=== PATIENT | female | born 1965 | race Caucasian/White ===

== ENCOUNTER 2020-08-15 13:00 | Outpatient (REF) | payer OTHER, SELFPAY ==
[2020-08-15 15:14] LABS: Alanine Aminotransferase 28 U/L (0-31); Albumin Level 4.3 g/dL (3.5-5.0); Alkaline Phosphatase 114 U/L (39-117); Anion Gap 15 (12-20); Aspartate Amino Transferase 17 U/L (5-31); Bilirubin Total 0.4 mg/dL (0.0-1.0); Blood Urea Nitrogen 23 mg/dL (9-16); Carbon Dioxide 25 mmol/L (22-29); Chloride 104 mmol/L (96-108); Cholesterol 227 mg/dL; Estimated Glomerular Filt Rate 52; Glucose Fasting 99 mg/dL (60-99); HDL Cholesterol 49 mg/dL; LDL Cholesterol Calculated 144 mg/dl; Potassium 4.5 mmol/l (3.3-5.1); Sodium 139 mmol/L (135-145); Triglycerides 172 mg/dL
[2020-08-15 15:35] LABS: Thyroid Stimulating Hormone 1.01 mIU/mL (0.32-4.0)
[2020-08-19 08:42] LABS: Vitamin D 25-OH, D2 4 ng/mL; Vitamin D 25-OH, D3 32 ng/mL; Vitamin D 25-OH, Total 36 ng/mL (30-100)
== END 2020-08-15 13:01 | disposition home or self-care (01) ==
LOC: HO.HMGCLDS 13:00
PROVIDERS: PCP Internal Medicine; Visit Provider Internal Medicine
DX: I10 Essential (primary) hypertension (principal); E55.9 Vitamin D deficiency, unspecified; E78.5 Hyperlipidemia, unspecified
CPT/HCPCS: 80053; 80061; 82306; 84443

== ENCOUNTER 2021-03-19 09:54 | Outpatient (REF) | payer OTHER, SELFPAY ==
[2021-03-19 11:32] LABS: Hematocrit 41.6 % (37-47); Hemoglobin 13.6 g/dl (12.0-16.0); Mean Corpuscular HGB Conc 32.7 g/dl (31.0-35.0); Mean Corpuscular Hemoglobin 30.2 pg (27.0-33.0); Mean Corpuscular Volume 92.2 fL (80-98); Mean Platelet Volume 11.3 fL (9.4-12.3); Platelet Count 353 X10*3/uL (160-400); Red Blood Count 4.51 X10*6/uL (4.20-5.50); Red Cell Distribution Width 12.8 % (11.0-16.0); White Blood Count 8.7 X10*3/uL (4.8-10.8)
[2021-03-19 12:03] LABS: Alanine Aminotransferase 14 U/L (0-31); Albumin Level 4.3 g/dL (3.5-5.0); Alkaline Phosphatase 93 U/L (39-117); Anion Gap 15 (12-20); Aspartate Amino Transferase 12 U/L (5-31); Bilirubin Total 0.5 mg/dL (0.0-1.0); Blood Urea Nitrogen 26 mg/dL (9-16); Calcium 9.2 mg/dL (8.4-10.2); Carbon Dioxide 24 mmol/L (22-29); Chloride 104 mmol/L (96-108); Cholesterol 236 mg/dL; Estimated Glomerular Filt Rate 50; Glucose Fasting 113 mg/dL (60-99); HDL Cholesterol 49 mg/dL; LDL Cholesterol Calculated 132 mg/dl; Potassium 4.2 mmol/L (3.3-5.1); Sodium 139 mmol/L (135-145); Total Protein 7.1 g/dL (6.5-8.0); Triglycerides 276 mg/dL
[2021-03-19 13:06] LABS: Folate 6.2 ng/mL (> or = 4.0); Vitamin B12 210 pg/mL (200-900)
[2021-03-20 11:27] LABS: Glucose Urine UA NEG (NEG); Leukocyte Esterase Urine NEG (NEG); Nitrite Urine NEG (NEG); Specific Gravity - Urine <= 1.005 (1.005-1.025); Urine Blood NEG (NEG); Urine Ketones NEG (NEG); Urine Protein NEG (NEG-TRACE)
[2021-03-20 11:28] LABS: Appearance Urine CLEAR; Color Urine STRAW
== END 2021-03-19 09:55 | disposition home or self-care (01) ==
LOC: HO.HMGCLDS 09:54
PROVIDERS: PCP Internal Medicine; Visit Provider Internal Medicine
DX: M79.7 Fibromyalgia (principal); M51.36 Other intervertebral disc degeneration, lumbar region; E55.9 Vitamin D deficiency, unspecified; I10 Essential (primary) hypertension; M17.11 Unilateral primary osteoarthritis, right knee; E53.8 Deficiency of other specified B group vitamins; R10.9 Unspecified abdominal pain; M54.12 Radiculopathy, cervical region
CPT/HCPCS: 36415; 80053; 80061; 81003; 82607; 82746; 84443; 85027

== ENCOUNTER 2021-03-20 | Outpatient (REF) | payer OTHER, SELFPAY | END 2021-03-20 00:01 | disposition home or self-care (01) | LOC: HO.HMGCLNP | PROVIDERS: Visit Provider Internal Medicine | DX: Z13.89 Encounter for screening for other disorder (principal) ==

== ENCOUNTER → 2021-03-27 10:49 | Outpatient (BNVA) | payer OTHER, MEDICARE, MEDICAID, SELFPAY | PROVIDERS: PCP Internal Medicine; Visit Provider Nurse Practitioner Family | DX: M51.36 Other intervertebral disc degeneration, lumbar region (principal); M54.12 Radiculopathy, cervical region; M96.1 Postlaminectomy syndrome, not elsewhere classified | CPT/HCPCS: 99212 ==

== ENCOUNTER 2021-04-06 13:13 | Outpatient (REF) | payer OTHER, SELFPAY ==
--- NOTE | ~2021-04-06 | CT_ITS ---
EXAMINATION: CT ABDOMEN AND PELVIS WITH CONTRAST CLINICAL INFORMATION: Diverticulitis of intestine COMPARISON: CT abdomen pelvis 05/22/2010 TECHNIQUE: Multidetector volumetric images were obtained from the superior aspect of the liver through the pubic symphysis following administration 85 mL of Omnipaque 350 intravenous contrast. Sagittal and coronal reformatted images were obtained on the technologist's workstation. Oral contrast: No This CT examination was performed using dose optimization techniques as appropriate, variously including the following: *Automated exposure control *Adjustment of mA and/or kV according to patient size (this includes techniques or standardized protocols for targeted exams where dose is matched to indication/reason for exam; i.e. extremities or head) *Use of iterative reconstruction technique DLP: 649 mGy-cm FINDINGS: LUNG BASES: The visualized lung bases are unremarkable. LIVER, GALLBLADDER, AND BILIARY TREE: The liver is normal in size, shape, and attenuation. No focal hepatic lesion or biliary ductal dilatation is present. Status post cholecystectomy PANCREAS: Unremarkable. SPLEEN: Unremarkable. ADRENAL GLANDS: Unremarkable. KIDNEYS AND URETERS: The kidneys are normal in size, shape, and attenuation. No hydronephrosis, hydroureter, or calculi seen. No perinephric stranding. BLADDER: Unremarkable. GASTROINTESTINAL TRACT: The small and large bowel are unremarkable. No significant diverticulosis is present. The appendix is unremarkable and tucked into Morison's pouch. ABDOMINAL WALL: No significant hernia is appreciated. LYMPH NODES: No retroperitoneal lymphadenopathy. VASCULAR: Unremarkable. PELVIC VISCERA: An anteverted uterus is present with a possible subserosal fibroid measuring 2.5 cm on the posterior surface. An abnormal adnexal mass is not seen. No free intraperitoneal fluid is present. OSSEOUS STRUCTURES: Degenerative changes present throughout the lumbar spine. Large Schmorl's nodes are seen. CT/CT abdomen pelvis w con IMPRESSION: No significant abnormality. Patient status post cholecystectomy. A possible small uterine fibroid is present. In retrospect, this is probably present in 2009 but appears slightly more prominent on the current study.
[2021-04-06] MEDS: iohexoL 350 MG/ML 100 ML INFUS..BTL IV (16:46)
== END 2021-04-06 13:14 | disposition home or self-care (01) ==
LOC: HO.CT 13:13
PROVIDERS: PCP Internal Medicine; Visit Provider Internal Medicine
DX: K57.92 Diverticulitis of intestine, part unspecified, without perforation or abscess without bleeding (principal)
CPT/HCPCS: 74177; Q9967

== ENCOUNTER 2021-04-11 15:42 | Outpatient (REF) | payer OTHER, SELFPAY ==
[2021-04-11 18:10] LABS: C Reactive Protein 1.29 mg/dL (< or = 0.50)
[2021-04-12 15:27] LABS: Transglutaminase Ab IgG 2 U/mL; Transglutaminase IgA 1 U/mL
== END 2021-04-11 15:43 | disposition home or self-care (01) ==
LOC: HO.LAB 15:42
PROVIDERS: PCP Internal Medicine; Referring Provider Internal Medicine; Visit Provider Nurse Practitioner Family
DX: Z01.818 Encounter for other preprocedural examination (principal); R10.9 Unspecified abdominal pain; R19.7 Diarrhea, unspecified; K92.2 Gastrointestinal hemorrhage, unspecified
CPT/HCPCS: 36415; 83516; 86140; 99202

== ENCOUNTER 2021-04-26 13:51 | Outpatient (REF) | payer OTHER, SELFPAY | END 2021-04-26 13:52 | disposition home or self-care (01) | LOC: HO.MRI 13:51 | PROVIDERS: PCP Internal Medicine; Visit Provider Anesthesiology | DX: R30.0 Dysuria (principal) | CPT/HCPCS: 87086 ==

== ENCOUNTER 2021-05-03 13:59 | Outpatient (REF) | payer OTHER, SELFPAY ==
--- NOTE | ~2021-05-03 | MR_ITS ---
EXAMINATION: MR CERVICAL SPINE WITHOUT CONTRAST CLINICAL INFORMATION: Neck pain. No new trauma. Prior surgery. COMPARISON: MRI dated 07/19/2019. TECHNIQUE: MRI of the cervical spine was obtained using routine sequences without contrast. FINDINGS: VERTEBRAL BODIES AND PARASPINAL SOFT TISSUES: The patient is status post previous multilevel anterior cervical discectomies and fusion from the C4 through the C7 levels. Alignment is unchanged. The marrow signal is homogeneous. There are no compression fractures or new subluxations. The paraspinal soft tissues appear normal. The vertebral artery flow voids are maintained. The imaged lung apices are clear. CERVICOMEDULLARY JUNCTION AND VISUALIZED POSTERIOR FOSSA: The craniovertebral junction and imaged portions of the brain parenchyma appear normal. There is multilevel ossification of the posterior longitudinal ligament impressing upon the ventral cord and thecal sac. Cord myelomalacia and volume loss again visible at the C4 through the C6 level. No syrinx is seen. SPINAL LEVELS: C2-C3: Stable disc bulge and small central disc protrusion with endplate spurring. No central canal stenosis. Degree of foraminal encroachment is stable from bony spurring. C3-C4: Stable disc-osteophyte complex with a small central disc protrusion impressing upon the ventral cord. No significant central canal stenosis. Stable [id number] foraminal narrowing. C4-C5: Endplate spurring and ossification of the posterior longitudinal ligament flattening the ventral cord, as on prior imaging. Post fusion changes anteriorly. No central canal stenosis or foraminal narrowing. Mild cord myelomalacia again evident. C5-C6: Post fusion changes with significant myelomalacia and cord atrophy. Ossification of the posterior longitudinal ligament distorting the ventral cord and thecal sac. No central canal stenosis. Mild foraminal narrowing. C6-C7: Bulky ossification and endplate ridging distorting the ventral cord, as on prior imaging. ACDF changes. Patent foramina. C7-T1: Broad-based central disc extrusion again visible with flattening of the ventral cord and hypertrophic facet arthropathy with an underlying disc bulge, as on prior imaging. Findings contribute to moderate central canal stenosis. Mild left foraminal narrowing. T1-T2: Central disc extrusion again visible with distortion of the ventral cord. Mild central canal stenosis. Facet arthropathy with mild left foraminal encroachment. T2-T3: Severe facet arthropathy again evident with foraminal encroachment. MR/MR cervical spine wo con IMPRESSION: 1. Stable imaging findings, status post multilevel anterior cervical discectomies and fusion with ossification of the posterior longitudinal ligament and endplate ridging from the C4-C7 levels. 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 Multilevel foraminal narrowing due to spondylosis. 2. Disc extrusions at the C7-T1 and T1-T2 level are stable with ventral cord deformity. Stable hypertrophic facet arthropathy with foraminal encroachment at the T2-T3 levels.
== END 2021-05-03 14:00 | disposition home or self-care (01) ==
LOC: HO.MRI 13:59
PROVIDERS: Visit Provider Anesthesiology
DX: M48.02 Spinal stenosis, cervical region (principal)
CPT/HCPCS: 72141

== ENCOUNTER 2021-06-12 09:57 | Day surgery (SDC) | payer OTHER, SELFPAY ==
[2021-06-05 10:28] VITALS: BMI 36.3
--- NOTE | 2021-06-11 10:20 | HO.ANESPROP2 ---
Documented by User: Freda Oakes NP 06/11/21 10:26 HPI - Anesthesia Eval Consult details Narrative: 55yo F for Colonoscopy MED ALLERGIES INCLUDE ANAPHYLAXIS FROM PROCAINE Following with pain management for spinal stenosis and knee pain. Uses w/c for gait instability. PMFSH Active Problems Active Problems: All Active Problems (Updated 04/26/21 @ 12:18 by Jv Irving DO) Dysuria (Acute) UTI (urinary tract infection) (Acute) Spinal stenosis of cervical region (Acute) Post-laminectomy syndrome (Acute) Depression (Acute) GI (gastrointestinal bleed) (Acute) Diverticulitis (Acute) Abdominal pain (Acute) Vitamin B12 deficiency (Acute) Osteoarthritis of right knee (Acute) Fibromyalgia (Acute) Lumbar degenerative disc disease (Acute) Cervical radiculopathy (Acute) Vitamin D deficiency (Acute) HTN (hypertension) (Acute) Hyperlipidemia (Acute) Past Medical History Medical History Abdominal pain Cervical radiculopathy Depression Diverticulitis Fibromyalgia GI (gastrointestinal bleed) HTN (hypertension) Hyperlipidemia Lumbar degenerative disc disease Osteoarthritis of right knee Vitamin B12 deficiency Vitamin D deficiency Surgical History Surgical History (Updated 06/11/21 @ 10:26 by rFeda Oakes NP) H/O Spinal surgery No pertinent past surgical history Social History Social History Advance Directives: No Advance Directives Information Provided: Yes Patient : No Meds Allergies Allergy/AdvReac Type Severity Reaction Status Date / Time procaine [From NOVOCAIN] Allergy Severe ANAPHYLAXIS Verified 04/11/21 16:07 methadone [METHADONE] Allergy Intermediate FLUID Verified 06/05/21 10:25 BUILD UP AROUND HEART ciprofloxacin [CIPROFLOXACIN] AdvReac Intermediate REACTION Verified 04/11/21 16:07 WITH MUSCLE RELAXERS clindamycin [CLINDAMYCIN] AdvReac Intermediate PALPITATION Verified 04/11/21 16:07 S Home Medications Medication Instructions Recorded Confirmed Last Taken Type amlodipine 10 mg tablet 10 mg PO DAILY 10/04/20 04/26/21 Unknown History lorazepam 0.5 mg tablet 0.5 mg PO TID PRN 10/04/20 04/26/21 Unknown History quetiapine 50 mg tablet 50 mg PO BEDTIME 10/04/20 04/26/21 Unknown History trazodone 100 mg tablet 100 mg PO BEDTIME PRN tab 10/04/20 04/26/21 Unknown History zolpidem 5 mg tablet 5 mg PO BEDTIME PRN 10/04/20 04/26/21 Unknown History hydroxyzine HCl 25 mg tablet 25 mg PO ONCE tab 04/11/21 04/26/21 Unknown History Exam Exam Date and Time: June 11, 2021 1020 Height,Weight and Vital Signs: Height 5 ft 3 in Weight 92.986 kg Pertinent Lab Results Pertinent Lab Results: Laboratory Tests 03/19/21 03/19/21 10:02 10:02 WBC 8.7 Hgb 13.6 Hct 41.6 Plt Count 353 Sodium 139 Potassium 4.2 Chloride 104 Carbon Dioxide 24 BUN 26 H Creatinine 1.14 Assessment and Plan Assessment Anesthesia Assessment: Chart Reviewed Documented by User: Maryann Rodriguez MD 06/12/21 10:34 PMFSH Past Medical History Medical History Abdominal pain Cervical radiculopathy Depression Diverticulitis Fibromyalgia GI (gastrointestinal bleed) HTN (hypertension) Hyperlipidemia Lumbar degenerative disc disease Osteoarthritis of right knee Vitamin B12 deficiency Vitamin D deficiency Functional capacity: independent ambulation Patient : No Family History Family history of problems with anesthesia: No Surgical History Surgical History (Updated 06/11/21 @ 10:26 by Freda Oakes NP) H/O Spinal surgery No pertinent past surgical history History of Problems with Anesthesia: No Social History Social History Advance Directives: No Advance Directives Information Provided: Yes Patient : No Meds Allergies Allergy/AdvReac Type Severity Reaction Status Date / Time procaine [From NOVOCAIN] Allergy Severe ANAPHYLAXIS Verified 04/11/21 16:07 methadone [METHADONE] Allergy Intermediate FLUID Verified 06/05/21 10:25 BUILD UP AROUND HEART ciprofloxacin [CIPROFLOXACIN] AdvReac Intermediate REACTION Verified 04/11/21 16:07 WITH MUSCLE RELAXERS clindamycin [CLINDAMYCIN] AdvReac Intermediate PALPITATION Verified 04/11/21 16:07 S Home Medications Medication Instructions Recorded Confirmed Last Taken Type amlodipine 10 mg tablet 10 mg PO DAILY 10/04/20 04/26/21 Unknown History lorazepam 0.5 mg tablet 0.5 mg PO TID PRN 10/04/20 04/26/21 Unknown History quetiapine 50 mg tablet 50 mg PO BEDTIME 10/04/20 04/26/21 Unknown History trazodone 100 mg tablet 100 mg PO BEDTIME PRN tab 10/04/20 04/26/21 Unknown History zolpidem 5 mg tablet 5 mg PO BEDTIME PRN 10/04/20 04/26/21 Unknown History hydroxyzine HCl 25 mg tablet 25 mg PO ONCE tab 04/11/21 04/26/21 Unknown History Exam Airway TM Dist: >3cm Neck ROM: Full Heart: RRR Lungs: CTA Assessment and Plan Final Anesthetic Review Family History of Problems with Anesthesia: No History of Problems with Anesthesia: No
[2021-06-12 10:41] VITALS: BP 111/59; PULSE 80; RESP 18; TEMP 37; O2SAT 94
[2021-06-12] MEDS: Lactated Ringers 1,000 ML 100 ML IVCONT (10:45)
--- NOTE | 2021-06-12 10:51 | MHC.SHP ---
Pre-Procedural Eval Section A Date of Service: 06/12/21 The patient is an INPATIENT: No The History & Physical has been completed within 30 days and I have reviewed it.: No Section B Chief Complaint: screening Details of Present Illness: Colon cancer screening, abd pain diarrhea, rectal bleeding Relevant Family History (Specify if Yes): Yes Relevant Social History: None Medical History: Significant History (Abdominal pain Cervical radiculopathy Depression Diverticulitis Fibromyalgia GI (gastrointestinal bleed) HTN (hypertension) Hyperlipidemia Lumbar degenerative disc disease Osteoarthritis of right knee Vitamin B12 deficiency Vitamin D deficiency) History of Previous Operations: No relevant previous surgery Allergies: Allergies Allergy/AdvReac Type Severity Reaction Status Date / Time procaine [From NOVOCAIN] Allergy Severe ANAPHYLAXIS Verified 04/11/21 16:07 methadone [METHADONE] Allergy Intermediate FLUID Verified 06/05/21 10:25 BUILD UP AROUND HEART ciprofloxacin [CIPROFLOXACIN] AdvReac Intermediate REACTION Verified 04/11/21 16:07 WITH MUSCLE RELAXERS clindamycin [CLINDAMYCIN] AdvReac Intermediate PALPITATION Verified 04/11/21 16:07 S Review of Systems Sugical H&P ROS: Negative: Constitution, Cardiovascular and Respiratory and Yes, Specify: Gastrointestinal Exam Surgical H&P Exam: Normal: Heart, Normal: Lungs, Normal: Extremities and Normal: Abdomen Plan Diagnosis/Plan: Unchanged I have reviewed the history and physical and performed a pertinent physical examination on my patient. No changes have occurred unless specified.
--- NOTE | 2021-06-12 11:29 | PM.OP ---
Brief Operative Note Date of Service: 06/12/21 Pre-op diagnosis: Colon cancer screening, abdominal pain, diarrhea, rectal bleeding Family history of colon cancer (GM in her 60's) Post-op diagnosis: other (Colon polyps, diverticulosis, hemorrhoids) Procedure: COLONOSCOPY TILL CECUM WITH BIOPSIES AND SNARE POLYPECTOMY Consent: Indications for the procedure and potential complications of bleeding, perforation, reaction to medications and missed diagnosis were discussed with the patient and informed consent was obtained. Instrument: Olympus PCF H 190 L variable stiffness pediatric colonoscope Monitoring: Vital signs and clinical assessment, intermittent blood pressure monitoring, continuous EKG monitoring, Pulse oximetry and Carbon Dioxide monitoring were done throughout the procedure. Colon withdrawl time was 23 minutes. Procedure: The patient was placed in the left lateral decubitis position and pre-procedure medications were administered. After a digital rectal examination of the ano-rectum, the video colonoscope was inserted into the rectum and advanced through the colon to the cecum. The colonoscope was slowly withdrawn in a retrograde panoramic fashion and the colon mucosa was carefully examined including a retroflexed view of the rectum. Findings and interventions are described below. Procedure Difficulty: Without difficulty Findings: Terminal Ileum: Not evaluated Cecum: a 4-5 mm sessile polyp removed with the cold biopsy. Ascending Colon: Normal Transverse Colon: Normal Descending Colon: Normal Sigmoid Colon: A 7-8 mm sessile polyp removed with the cold biopsy. Moderate diverticulosis Rectum: A 10-12 mm sessile polyp removed with a cold snare Ano-rectum: Moderate internal hemorrhoids and perianal skin tags Colon preparation: Good after copious irrigation and fair in some areas of the colon Impression and Post Procedure Diagnosis: Colonoscopy Findings: Three small to medium sized polyps removed Random biopsies were obtained from the right and left colon Moderate diverticulosis seen in the sigmoid colon Moderate hemorrhoids on retroflexed exam. Plan: Await pathology results Patient has an appointment on 07/03/21 in the GI Clinic with Nikkie Troncoso FNP-BC. Repeat Colonoscopy interval based on path results - in 3 years if polyps are adenomatous and due to fair prep. Above findings were reviewed with the patient and colon polyps and diverticulosis handouts were given in the discharge area Surgeon: Brendon Briones MD Anesthesia: MAC (Dr Garcia & Sarah Moulton CRNA) Was an Benefits Counselor used for this Procedure?: No Benefits Counselor: Yumiko Gee Estimated blood loss (mL): 0 Pathology: other (A- CECAL POLYP B- RIGHT COLON BIOPSIES C- SIGMOID POLYP D- LEFT COLON BIOPSIES E- RECTAL POLYP) Condition: stable Disposition: PACU
--- NOTE | 2021-06-12 11:37 | P.CONAN_ITS ---
[facility] Active Problems Active Problems: All Active Problems (Updated 04/26/21 @ 12:18 by Jv Irving DO) Dysuria (Acute) UTI (urinary tract infection) (Acute) Spinal stenosis of cervical region (Acute) Post-laminectomy syndrome (Acute) Depression (Acute) GI (gastrointestinal bleed) (Acute) Diverticulitis (Acute) Abdominal pain (Acute) Vitamin B12 deficiency (Acute) Osteoarthritis of right knee (Acute) Fibromyalgia (Acute) Lumbar degenerative disc disease (Acute) Cervical radiculopathy (Acute) Vitamin D deficiency (Acute) HTN (hypertension) (Acute) Hyperlipidemia (Acute) Past Medical History Medical History Abdominal pain Cervical radiculopathy Depression Diverticulitis Fibromyalgia GI (gastrointestinal bleed) HTN (hypertension) Hyperlipidemia Lumbar degenerative disc disease Osteoarthritis of right knee Vitamin B12 deficiency Vitamin D deficiency Functional capacity: uses cane/walker Family History Family history of problems with anesthesia: No Surgical History Surgical History (Updated 06/11/21 @ 10:26 by Freda Oakes NP) H/O Spinal surgery No pertinent past surgical history History of Problems with Anesthesia: No Social History Social History Patient Tobacco Use Status: Never used Tobacco Second Hand Smoke Exposure: No Are you DNR?: No Advance Directives: No Advance Directives Information Provided: Yes Advance Directives on File: No Patient : No Meds Allergies Allergy/AdvReac Type Severity Reaction Status Date / Time procaine [From NOVOCAIN] Allergy Severe ANAPHYLAXIS Verified 04/11/21 16:07 methadone [METHADONE] Allergy Intermediate FLUID Verified 06/05/21 10:25 BUILD UP AROUND HEART ciprofloxacin [CIPROFLOXACIN] AdvReac Intermediate REACTION Verified 04/11/21 16:07 WITH MUSCLE RELAXERS clindamycin [CLINDAMYCIN] AdvReac Intermediate PALPITATION Verified 04/11/21 16:07 S Active Medications: Current Medications Generic Name Dose Route Start Last Admin Trade Name Freq PRN Reason Stop Dose Admin Lactated Ringer's 1,000 mls @ 100 mls/hr 06/12/21 10:15 Lr IVCONT .Q10H [facility] Home Medications Medication Instructions Recorded Confirmed Last Taken Type amlodipine 10 mg tablet 10 mg PO DAILY 1204/26/21 06/12/21 History lorazepam 0.5 mg tablet 0.5 mg PO TID PRN 10/04/20 04/26/21 Unknown History quetiapine 50 mg tablet 50 mg PO BEDTIME 10/04/20 04/26/21 Unknown History trazodone 100 mg tablet 100 mg PO BEDTIME PRN tab 10/04/20 04/26/21 Unknown History zolpidem 5 mg tablet 5 mg PO BEDTIME PRN 10/04/20 04/26/21 Unknown History hydroxyzine HCl 25 mg tablet 25 mg PO ONCE tab 04/11/21 04/26/21 Unknown History Exam Exam Date and Time: June 12, 2021 1137 Height,Weight and Vital Signs: Height 5 ft 3 in Weight 92.986 kg Last Vital Signs Temp 98.6 F 06/12/21 10:41 Pulse 80 06/12/21 10:41 Resp 18 06/12/21 10:41 BP 111/59 L 06/12/21 10:41 Pulse Ox 94 06/12/21 10:41 Assessment and Plan Final Anesthetic Review Family History of Problems with Anesthesia: No History of Problems with Anesthesia: No
--- NOTE | 2021-06-12 12:08 | W.PM.OPN ---
Operative Note Operative Note Date of Service: 06/12/21 Narrative: Pre-op diagnosis:?Colon cancer screening, abdominal pain, diarrhea, rectal bleeding Family history of colon cancer (GM in her 60's) Post-op diagnosis:?other (Colon polyps, diverticulosis, hemorrhoids) Procedure:? COLONOSCOPY TILL CECUM WITH BIOPSIES AND SNARE POLYPECTOMY Consent: Indications for the procedure and potential complications of bleeding, perforation, reaction to medications and missed diagnosis were discussed with the patient and informed consent was obtained. Instrument: Olympus PCF H 190 L variable stiffness pediatric colonoscope Monitoring: Vital signs and clinical assessment, intermittent blood pressure monitoring, continuous EKG monitoring, Pulse oximetry and Carbon Dioxide monitoring were done throughout the procedure. Colon withdrawl time was 23 minutes. Procedure: The patient was placed in the left lateral decubitis position and pre-procedure medications were administered. After a digital rectal examination of the ano-rectum, the video colonoscope was inserted into the rectum and advanced through the colon to the cecum. The colonoscope was slowly withdrawn in a retrograde panoramic fashion and the colon mucosa was carefully examined including a retroflexed view of the rectum. Findings and interventions are described below. Procedure Difficulty: Without difficulty Findings: Terminal Ileum: Not evaluated Cecum:? a 4-5 mm sessile polyp removed with the cold biopsy. Ascending Colon:? Normal Transverse Colon:? Normal Descending Colon:? Normal Sigmoid Colon:? A 7-8 mm sessile polyp removed with the cold biopsy. Moderate diverticulosis Rectum:? A 10-12 mm sessile polyp removed with a cold snare Ano-rectum:? Moderate internal hemorrhoids and perianal skin tags Colon preparation: Good after copious irrigation and fair in some areas of the colon Impression and Post Procedure Diagnosis: Colonoscopy Findings: Three small to medium sized polyps removed Random biopsies were obtained from the right and left colon Moderate diverticulosis seen in the sigmoid colon Moderate hemorrhoids on retroflexed exam. Plan: Await pathology results Patient has an appointment on 07/03/21 in the GI Clinic with ? Nikkie Troncoso FNP-AVELINA. Repeat Colonoscopy interval based on path results - in 3 years if polyps are adenomatous and due to fair prep. Above findings were reviewed with the patient and colon polyps and diverticulosis handouts were given in the discharge area Surgeon:?Brendon Briones MD Anesthesia:?MAC (Dr Garcia & Sarah Moulton CRNA) Was an Charge Out Clerk used for this Procedure?:?No Charge Out Clerk:?Yumiko Gee Estimated blood loss (mL):?0 Pathology:?other (A- CECAL POLYP? B- RIGHT COLON BIOPSIES? C- SIGMOID POLYP? D- LEFT COLON BIOPSIES? E- RECTAL POLYP) Condition:?stable Disposition:?PACU
[2021-06-12 12:10] VITALS: BP 97/53; PULSE 69; RESP 16; TEMP 36.2; O2SAT 94
[2021-06-12 12:26] VITALS: BP 92/53; PULSE 65; RESP 16; O2SAT 96
--- NOTE | 2021-06-12 12:30 | PC.NURSE ---
patient passing gas. salma po challenge. no rectal bleeding.
[2021-06-12 12:32] VITALS: BP 110/50; PULSE 71; RESP 16; TEMP 36.3; O2SAT 96
== END 2021-06-12 13:10 | disposition home or self-care (01) ==
PROVIDERS: PCP Internal Medicine; Visit Provider Internal Medicine Gastroenterology
PROC: 0DJD8ZZ Inspection of Lower Intestinal Tract, Via Natural or Artificial Opening Endoscopic (ICD-10-PCS; CPT 45378; principal; 2021-06-12 11:10)
DX: Z12.11 Encounter for screening for malignant neoplasm of colon (principal); K63.5 Polyp of colon; K62.1 Rectal polyp; K57.30 Diverticulosis of large intestine without perforation or abscess without bleeding; K64.8 Other hemorrhoids; R19.7 Diarrhea, unspecified; F32.9 Major depressive disorder, single episode, unspecified; M79.7 Fibromyalgia; Z87.19 Personal history of other diseases of the digestive system; Z79.899 Other long term (current) drug therapy; Z88.8 Allergy status to other drugs, medicaments and biological substances
CPT/HCPCS: 45385; 45380; 88305

== ENCOUNTER → 2021-07-03 13:22 | Outpatient (BNVA) | payer OTHER, SELFPAY | PROVIDERS: PCP Internal Medicine; Referring Provider Internal Medicine; Visit Provider Nurse Practitioner Family | DX: K58.2 Mixed irritable bowel syndrome (principal); K64.9 Unspecified hemorrhoids; Z98.890 Other specified postprocedural states | CPT/HCPCS: 99212 ==

== ENCOUNTER 2021-10-02 12:44 | Outpatient (REF) | payer OTHER, SELFPAY ==
[2021-10-02 14:02] LABS: Hematocrit 41.1 % (37.0-47.0); Hemoglobin 13.5 g/dl (12.0-16.0); Mean Corpuscular HGB Conc 32.8 g/dl (31.0-35.0); Mean Corpuscular Hemoglobin 29.8 pg (27.0-33.0); Mean Corpuscular Volume 90.7 fL (80.0-98.0); Mean Platelet Volume 11.4 fL (9.4-12.3); Platelet Count 364 X10*3/uL (160-400); Red Blood Count 4.53 X10*6/uL (4.20-5.50); Red Cell Distribution Width 12.8 % (11.0-16.0); White Blood Count 7.7 X10*3/uL (4.8-10.8)
[2021-10-02 14:28] LABS: Alanine Aminotransferase 23 U/L (0-31); Albumin Level 4.3 g/dL (3.5-5.0); Alkaline Phosphatase 96 U/L (39-117); Anion Gap 15 (12-20); Aspartate Amino Transferase 15 U/L (5-31); Bilirubin Total 0.4 mg/dL (0.0-1.0); Blood Urea Nitrogen 22 mg/dL (9-16); Calcium 9.6 mg/dL (8.4-10.2); Carbon Dioxide 26 mmol/L (22-29); Chloride 104 mmol/L (96-108); Cholesterol 242 mg/dL; Estimated Glomerular Filt Rate 52; Glucose Fasting 116 mg/dL (60-99); HDL Cholesterol 50 mg/dL; LDL Cholesterol Calculated 147 mg/dl; Potassium 4.6 mmol/L (3.3-5.1); Sodium 140 mmol/L (135-145); Total Protein 7.2 g/dL (6.5-8.0); Triglycerides 226 mg/dL
[2021-10-02 14:49] LABS: TSH reflex Free T4 1.36 uIU/mL (0.32-4.0)
== END 2021-10-02 12:45 | disposition home or self-care (01) ==
LOC: HO.HMGCLDS 12:44
PROVIDERS: PCP Internal Medicine; Visit Provider Internal Medicine
DX: E55.9 Vitamin D deficiency, unspecified (principal); E78.5 Hyperlipidemia, unspecified; I10 Essential (primary) hypertension
CPT/HCPCS: 36415; 80053; 80061; 84443; 85027

== ENCOUNTER → 2022-03-18 13:32 | Outpatient (BNVA) | payer OTHER, SELFPAY | PROVIDERS: PCP Internal Medicine; Referring Provider Internal Medicine; Visit Provider Nurse Practitioner Family | DX: K59.01 Slow transit constipation (principal); K64.9 Unspecified hemorrhoids; R10.84 Generalized abdominal pain | CPT/HCPCS: 99212 ==

== ENCOUNTER 2022-05-29 11:40 | Outpatient (REF) | payer OTHER, SELFPAY ==
[2022-05-29 14:11] LABS: Estimated Average Glucose 126 mg/dL
[2022-05-29 15:10] LABS: Alanine Aminotransferase 18 U/L (0-31); Albumin Level 4.3 g/dL (3.5-5.0); Alkaline Phosphatase 87 U/L (39-117); Anion Gap 16 (12-20); Aspartate Amino Transferase 18 U/L (5-31); Bilirubin Total 0.4 mg/dL (0.0-1.0); Blood Urea Nitrogen 19 mg/dL (9-16); Carbon Dioxide 23 mmol/L (22-29); Chloride 107 mmol/L (96-108); Cholesterol 238 mg/dL; Estimated Glomerular Filt Rate 54; Glucose Fasting 130 mg/dL (60-99); HDL Cholesterol 50 mg/dL; LDL Cholesterol Calculated 148 mg/dl; Potassium 4.1 mmol/L (3.3-5.1); Sodium 142 mmol/L (135-145); Triglycerides 201 mg/dL
== END 2022-05-29 11:41 | disposition home or self-care (01) ==
LOC: HO.HMGCLDS 11:40
PROVIDERS: PCP Internal Medicine; Visit Provider Internal Medicine
DX: I10 Essential (primary) hypertension (principal); E78.5 Hyperlipidemia, unspecified; R73.9 Hyperglycemia, unspecified
CPT/HCPCS: 36415; 80053; 80061; 83036

== ENCOUNTER → 2022-11-18 12:14 | Outpatient (BNVA) | payer OTHER, SELFPAY | PROVIDERS: PCP Internal Medicine; Referring Provider Internal Medicine; Visit Provider Nurse Practitioner Family | DX: K59.04 Chronic idiopathic constipation (principal); K21.9 Gastro-esophageal reflux disease without esophagitis; R10.84 Generalized abdominal pain | CPT/HCPCS: 99212 ==

== ENCOUNTER 2022-11-19 16:55 | Outpatient (REF) | payer OTHER, SELFPAY ==
[2022-11-20 15:09] LABS: H Pylori Breath Test Negative (Negative)
== END 2022-11-19 16:56 | disposition home or self-care (01) ==
LOC: HO.LNP 16:55
PROVIDERS: Visit Provider Nurse Practitioner Family
DX: Z11.2 Encounter for screening for other bacterial diseases (principal)
CPT/HCPCS: 83013

== ENCOUNTER 2022-11-26 13:21 | Outpatient (REF) | payer OTHER, SELFPAY ==
[2022-11-26 16:39] LABS: Estimated Average Glucose 114 mg/dL; Hemoglobin A1c % 5.6 %
[2022-11-26 17:06] LABS: Alanine Aminotransferase 16 U/L (0-31); Albumin Level 4.3 g/dL (3.5-5.0); Alkaline Phosphatase 95 U/L (39-117); Anion Gap 14 (12-20); Aspartate Amino Transferase 12 U/L (5-31); Bilirubin Total 0.4 mg/dL (0.0-1.0); Blood Urea Nitrogen 23 mg/dL (9-16); Calcium 9.1 mg/dL (8.4-10.2); Carbon Dioxide 24 mmol/L (22-29); Chloride 108 mmol/L (96-108); Estimated Glomerular Filt Rate 53; Glucose Fasting 112 mg/dL (60-99); Potassium 4.6 mmol/L (3.3-5.1); Sodium 141 mmol/L (135-145)
[2022-11-26 17:37] LABS: Folate 9.2 ng/mL (> or = 4.0); TSH reflex Free T4 0.63 uIU/mL (0.32-4.0); Vitamin B12 283 pg/mL (200-900)
== END 2022-11-26 13:22 | disposition home or self-care (01) ==
LOC: HO.HMGCLDS 13:21
PROVIDERS: PCP Internal Medicine; Visit Provider Internal Medicine
DX: E53.8 Deficiency of other specified B group vitamins (principal); E78.5 Hyperlipidemia, unspecified; R73.9 Hyperglycemia, unspecified; I10 Essential (primary) hypertension
CPT/HCPCS: 36415; 80053; 82607; 82746; 83036; 84443

== ENCOUNTER 2023-04-09 09:15 | Outpatient (REF) | payer OTHER, SELFPAY ==
[2023-04-09 11:22] LABS: MANUAL DIFF FLAG NO
[2023-04-09 11:42] LABS: Basophils Absolute Auto 0.1 X10*3/uL (0.0-0.2); Eosinophils Absolute Auto 0.2 X10*3/uL (0.0-0.4); Eosinophils Percent Auto 3.2 % (0-4); Hematocrit 43.2 % (37.0-47.0); Hemoglobin 13.9 g/dl (12.0-16.0); Imm Gran Abs Auto 0.01 X10*3/uL (0.00-0.03); Imm Gran Pct Auto 0.1 % (0.0-0.4); Lymphocytes Absolute Auto 2.6 X10*3/uL (1.2-4.9); Lymphocytes Percent Auto 36.4 % (20-40); Mean Corpuscular HGB Conc 32.2 g/dl (31.0-35.0); Mean Corpuscular Hemoglobin 28.5 pg (27.0-33.0); Mean Corpuscular Volume 88.5 fL (80.0-98.0); Mean Platelet Volume 11.6 fL (9.4-12.3); Monocytes Absolute Auto 0.5 X10*3/uL (0.1-1.2); Monocytes Percent Auto 6.3 % (2-11); Neutrophils Absolute Auto 3.8 x10*3/uL (2.0-8.3); Platelet Count 333 X10*3/uL (160-400); Red Blood Count 4.88 X10*6/uL (4.20-5.50); Red Cell Distribution Width 13.8 % (11.0-16.0); White Blood Count 7.2 X10*3/uL (4.8-10.8)
[2023-04-09 11:53] LABS: Estimated Average Glucose 117 mg/dL; Hemoglobin A1c % 5.7 %
[2023-04-09 11:58] LABS: Alanine Aminotransferase 134 U/L (0-31); Albumin Level 4.2 g/dL (3.5-5.0); Alkaline Phosphatase 234 U/L (39-117); Anion Gap 13 (12-20); Aspartate Amino Transferase 142 U/L (5-31); Bilirubin Total 0.7 mg/dL (0.0-1.0); Blood Urea Nitrogen 26 mg/dL (9-16); Calcium 9.6 mg/dL (8.4-10.2); Carbon Dioxide 26 mmol/L (22-29); Chloride 106 mmol/L (96-108); Cholesterol 215 mg/dL; Estimated Glomerular Filt Rate 53; Glucose Fasting 100 mg/dL (60-99); HDL Cholesterol 55 mg/dL; LDL Cholesterol Calculated 119 mg/dl; Potassium 4.1 mmol/L (3.3-5.1); Sodium 141 mmol/L (135-145); Total Protein 7.4 g/dL (6.5-8.0); Triglycerides 206 mg/dL
[2023-04-09 12:21] LABS: Vitamin B12 377 pg/mL (200-900)
== END 2023-04-09 09:16 | disposition home or self-care (01) ==
LOC: HO.HMGCLDS 09:15
PROVIDERS: PCP Internal Medicine; Visit Provider Internal Medicine
DX: E53.8 Deficiency of other specified B group vitamins (principal); E78.5 Hyperlipidemia, unspecified; I10 Essential (primary) hypertension; R73.9 Hyperglycemia, unspecified
CPT/HCPCS: 36415; 80053; 80061; 82607; 82746; 83036; 85025

== ENCOUNTER → 2023-04-30 12:52 | Outpatient (BNVA) | payer OTHER, SELFPAY | PROVIDERS: PCP Internal Medicine; Visit Provider Registered Nurse Emergency | DX: M51.36 Other intervertebral disc degeneration, lumbar region (principal); M54.12 Radiculopathy, cervical region; M96.1 Postlaminectomy syndrome, not elsewhere classified | CPT/HCPCS: 99202 ==

== ENCOUNTER 2023-05-01 15:14 | Outpatient (REF) | payer OTHER, SELFPAY ==
[2023-05-01 17:13] LABS: Alanine Aminotransferase 32 U/L (0-31); Albumin Level 4.5 g/dL (3.5-5.0); Alkaline Phosphatase 127 U/L (39-117); Aspartate Amino Transferase 15 U/L (5-31); Bilirubin Direct 0.2 mg/dL (0.0-0.5); Bilirubin Total 0.5 mg/dL (0.0-1.0); C Reactive Protein 1.14 mg/dL (< or = 0.50); Total Protein 7.9 g/dL (6.5-8.0)
[2023-05-01 18:04] LABS: Gamma Glutamyl Transpeptidase 239 U/L (7-33)
[2023-05-07 12:19] LABS: Liver Kidney Microsomal Ab <=20.0 U (<=20.0)
== END 2023-05-01 15:15 | disposition home or self-care (01) ==
LOC: HO.HMGCLDS 15:14
PROVIDERS: PCP Internal Medicine; Visit Provider Internal Medicine
DX: M25.50 Pain in unspecified joint (principal); R79.89 Other specified abnormal findings of blood chemistry
CPT/HCPCS: 36415; 80076; 82977; 85652; 86140; 86200; 86376; 86431; 86704; 86706; 86709; 86803; 87340

== ENCOUNTER 2023-05-05 09:00 | Outpatient (REF) | payer OTHER, SELFPAY ==
--- NOTE | ~2023-05-05 | US_ITS ---
EXAMINATION: US COMPLETE ABDOMEN WITH LIVER ELASTOGRAPHY CLINICAL INFORMATION: Abnormal findings of blood chemistry. COMPARISON: CT abdomen and pelvis dated 04/06/2021. TECHNIQUE: Real-time imaging of the abdominal viscera. Noninvasive ultrasound liver fibrosis assessment is performed using Efren ElastPQ point quantification shear wave elastography (2D-SWE) with a C5-2 MHz transducer. Multiple elastography samples are obtained. FINDINGS: PANCREAS: Normal. The visualized pancreatic head and body are normal in appearance. The remainder of the pancreas is obscured from visualization by the overlying bowel gas. ABDOMINAL AORTA: The proximal, middle, and distal aortic segments are normal in caliber. INFERIOR VENA CAVA: Visualized portions are normal. LIVER: The liver demonstrates normal contour and increased echogenicity. No focal lesion or intrahepatic biliary duct dilatation. The right lobe measures 19.0 cm in length. The left lobe measures 10.3 cm in length. Portal flow is towards the liver (hepatopetal). Shear wave liver elastography median stiffness is 1.49 m/s (reference: normal median stiffness is 1.3 m/s or less). IQR/median stiffness to assess sampling precision is 0.22 (reference: good quality data set is IQR/median stiffness of 0.15 or less). GALLBLADDER: Surgically absent. COMMON BILE DUCT: Normal in caliber post-cholecystectomy, measuring 1.2 cm in diameter. RIGHT KIDNEY: Normal. No hydronephrosis. No renal calculi or focal parenchymal lesions. The kidney measures 11.2 cm in maximum dimension. LEFT KIDNEY: Normal. No hydronephrosis. No renal calculi or focal parenchymal lesions. The kidney measures 10.6 cm in maximum dimension. SPLEEN: Normal. The spleen measures 8.2 cm in maximum dimension. FREE FLUID: There is a small amount of ascites in the gallbladder fossa. US/US abdomen comp w elastography IMPRESSION: 1. There is generalized increase in hepatic echotexture, consistent with fatty infiltration or hepatocellular disease. Please correlate clinically. No focal hepatic mass or intrahepatic biliary dilatation is seen. 2. Liver elastography: Although measurements appear to rule out compensated advanced chronic liver disease, there is statistical variability of the sampling which decreases accuracy. 3. There is hepatomegaly. 4. The gallbladder is surgically absent. 5. Technically limited ultrasound examination of the pancreas. REFERENCE: Society of Radiologists in Ultrasound Liver Stiffness Thresholds (2020): LIVER STIFFNESS THRESHOLDS: *Liver Stiffness equal or less than 1.3 m/s: High probability of being normal. *Liver Stiffness less than 1.7 m/s: In the absence of other known clinical signs, rules out compensated advanced chronic liver disease. *Liver Stiffness 1.7-2.1 m/s: Suggestive of compensated advanced chronic liver disease but need further test for confirmation. *Liver Stiffness over 2.1 m/s: Rules in compensated advanced chronic liver disease. *Liver Stiffness over 2.4 m/s: Suggestive of clinically significant portal hypertension. QUALITY OF DATA SET: *IQR/Median value equal or less than 0.15 implies a quality data set. *IQR/Median value over 0.15 implies a poor quality data set. SIGNIFICANT CHANGE FROM PRIOR EXAM: Significant change if liver stiffness measurement is 10% or greater from prior exam. OTHER CONSIDERATIONS: The stage of liver fibrosis may be overestimated in the setting of acute hepatitis, liver inflammation, elevated liver function tests, hepatic vascular congestion, obstructive cholestasis, non-fasting state, and infiltrative diseases such as amyloidosis and lymphoma. In some patients with NAFLD, the liver stiffness thresholds for compensated advanced chronic liver disease may be lower. In causes other than viral hepatitis and NAFLD, liver stiffness thresholds are not well established.
== END 2023-05-05 09:01 | disposition home or self-care (01) ==
LOC: HO.US 09:00
PROVIDERS: PCP Internal Medicine; Visit Provider Internal Medicine
DX: R79.89 Other specified abnormal findings of blood chemistry (principal)
CPT/HCPCS: 76705; 76981

== ENCOUNTER 2023-05-13 09:21 | Outpatient (REF) | payer OTHER, SELFPAY ==
[2023-05-13 12:55] LABS: Alanine Aminotransferase 12 U/L (0-31); Albumin Level 4.3 g/dL (3.5-5.0); Alkaline Phosphatase 95 U/L (39-117); Aspartate Amino Transferase 12 U/L (5-31); Bilirubin Direct 0.1 mg/dL (0.0-0.5); Bilirubin Total 0.3 mg/dL (0.0-1.0); Total Protein 7.5 g/dL (6.5-8.0)
[2023-05-13 13:09] LABS: HBS Num1 0.01 mIU/mL (0-7.99); HBc Num1 0.09 S/CO (0.00-0.79); HBsAGNum1 0.35 S/CO (0.00-0.99); HIV AB/AG Nonreactive (Nonreactive); HIV Num 1 0.08 S/CO (0.00-0.99); Hepatitis A Antibody IgM 0.18 Index (0-0.79); Hepatitis B Core Antibody Nonreactive (Nonreactive); Hepatitis B Surface Antigen Negative (Negative); ~HepC Num1 0.07 S/CO (0.00-0.79); ~Hepatitis A Antibody IgM Nonreactive (Nonreactive); ~Hepatitis B Surface Antibody NONREACTIVE (Nonreactive); ~Hepatitis C Antibody Nonreactive (Nonreactive)
[2023-05-19 12:08] LABS: Anti Nuclear Antibody Screen NEGATIVE (NEGATIVE)
[2023-05-19 23:14] LABS: Liver Kidney Microsomal Ab <=20.0 U (<=20.0)
== END 2023-05-13 09:22 | disposition home or self-care (01) ==
LOC: HO.HMGCLDS 09:21
PROVIDERS: PCP Internal Medicine; Visit Provider Internal Medicine
DX: Z11.4 Encounter for screening for human immunodeficiency virus [HIV] (principal); R79.89 Other specified abnormal findings of blood chemistry
CPT/HCPCS: 36415; 80076; 86038; 86376; 86704; 86706; 86709; 86803; 87340; 87389

== ENCOUNTER 2023-06-02 12:14 | Outpatient (REF) | payer OTHER, SELFPAY ==
[2023-06-02 15:29] LABS: Alanine Aminotransferase 12 U/L (0-31); Albumin Level 4.1 g/dL (3.5-5.0); Alkaline Phosphatase 97 U/L (39-117); Aspartate Amino Transferase 12 U/L (5-31); Bilirubin Direct 0.2 mg/dL (0.0-0.5); Bilirubin Total 0.4 mg/dL (0.0-1.0); Total Protein 7.1 g/dL (6.5-8.0)
== END 2023-06-02 12:15 | disposition home or self-care (01) ==
LOC: HO.HMGCLDS 12:14
PROVIDERS: PCP Internal Medicine; Visit Provider Internal Medicine
DX: R79.89 Other specified abnormal findings of blood chemistry (principal)
CPT/HCPCS: 36415; 80076

== ENCOUNTER 2023-11-19 15:13 | Outpatient (REF) | payer OTHER, SELFPAY ==
--- NOTE | ~2023-11-19 | MM_ITS ---
EXAMINATION: MM SCREENING DIGITAL BREAST TOMOSYNTHESIS, BILATERAL CLINICAL INFORMATION: Screening. Asymptomatic. COMPARISON: Mammography: This study is compared with prior exams dating back to 2016. TECHNIQUE: Digital breast tomosynthesis is performed in both the craniocaudal and mediolateral oblique views along with computer-aided detection (CAD). Synthesized 2D images are generated from the tomosynthesis. FINDINGS: There are scattered areas of fibroglandular density (ACR BI-RADS breast composition Category b). There are no significant masses, abnormal calcifications, or other abnormalities. MM/MM tomosynthesis screening BI IMPRESSION: No mammographic evidence of malignancy. ASSESSMENT: BI-RADS BI-RADS 1 - Negative RECOMMENDATION: Routine annual mammography screening. 1 year F/U This examination should not preclude the clinical evaluation of a suspicious palpable abnormality. This patient's information was entered into a reminder system with a target due date for their next mammogram.
== END 2023-11-19 15:14 | disposition home or self-care (01) ==
LOC: HO.MAMMO 15:13
PROVIDERS: PCP Internal Medicine; Visit Provider Internal Medicine
DX: Z12.31 Encounter for screening mammogram for malignant neoplasm of breast (principal)
CPT/HCPCS: 77063; 77067

== ENCOUNTER → 2023-11-19 15:15 | Outpatient (BNV) | payer OTHER, SELFPAY | PROVIDERS: PCP Internal Medicine; Visit Provider Radiology Diagnostic Radiology | DX: Z12.31 Encounter for screening mammogram for malignant neoplasm of breast (principal) | CPT/HCPCS: 77063; 77067 ==

== ENCOUNTER 2024-01-26 14:44 | Outpatient (AMB) | payer OTHER, SELFPAY ==
--- NOTE | 2024-01-26 15:06 | AM.OFFWIN_ITS ---
Intake Vital Signs 01/26/24 15:07 Height 5 ft 3 in BP 122/74 Blood Pressure Location Lt brachial Position Sitting Pulse 76 Pulse Source Pulse Oximeter Temp 98.7 F Temp Source Oral Pulse Oximetry (%) 96 Oxygen Delivery Method Room Air Intake Visit Reasons: EP stomach pain loose stools back pain (lobby) Intake Note: pt is here for c/o stomach pain and loose stool for 1 week Patient Tobacco Use Status: Former Tobacco user Allergies procaine [From NOVOCAIN] Allergy (Severe, Verified 01/26/24 15:08) ANAPHYLAXIS methadone [METHADONE] Allergy (Intermediate, Verified 01/26/24 15:08) FLUID BUILD UP AROUND HEART ciprofloxacin [CIPROFLOXACIN] Adverse Reaction (Intermediate, Verified 01/26/24 15:08) REACTION WITH MUSCLE RELAXERS clindamycin [CLINDAMYCIN] Adverse Reaction (Intermediate, Verified 01/26/24 15:08) PALPITATIONS Do you need a note to return to daycare/school/sports/work: No HPI HPI Comments History of Present Illness Details 58 y/o female patient who presents to [facility] with c/o nausea, vomiting, diarrhea and epigastric region pain x 1 week. She has not been able to keep anything down. Denies any changes to diet. 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 Denies fevers, or chills. She has not taken any OTC medication for the symptoms. [facility] Medical History Abdominal pain Annual physical exam Cervical radiculopathy Depression Diverticulitis Fibromyalgia GI (gastrointestinal bleed) HTN (hypertension) Hyperglycemia Hyperlipidemia Lumbar degenerative disc disease Osteoarthritis of right knee Vitamin B12 deficiency Vitamin D deficiency Surgical History H/O Spinal surgery Hx of colonoscopy No pertinent past surgical history Social History Housing: House Patient Tobacco Use Status: Former Tobacco user e-Cigarette/Vaping Use: Currently Using Second Hand Smoke Exposure: No Current occupational status: disabled Cognitive needs: No Hearing needs: No Vision needs: No Review of Systems Const All systems reviewed & are unremarkable except as noted in HPI and below Physical Exam Vital Signs: Last Vital Signs Temp 98.7 F 01/26/24 15:07 Pulse 76 01/26/24 15:07 BP 122/74 01/26/24 15:07 Pulse Ox 96 01/26/24 15:07 Oxygen Delivery Method Room Air 01/26/24 15:07 Const General: no acute distress and poor hygiene; No comfortable Nutritional Appearance: overweight Orientation/consciousness: patient oriented x3 Resp Effort & Inspection: normal respiratory effort Auscultation: clear to auscultation bilaterally Cardio Rate: regular rate Rhythm: regular rhythm GI Inspection: Yes obesity Palpation (GI): Soft to palpation, not firm, Tenderness to palpation present (GI) in the epigastrum, No hepatosplenomegaly present, no hernias and no masses Auscultation: normal bowel sounds Rectal Exam - Female: deferred Neuro Other: Pt seating on wheelchair General: patient oriented x3 and moves all extremities Psych Speech and movement: Normal speech and movement present Assessment & Plan Assessment & Plan (1) Gastritis: Code(s): K29.70 - Gastritis, unspecified, without bleeding Qualifiers: Gastritis type: other gastritis Chronicity: acute Gastritis bleeding: without bleeding Qualified Code(s): K29.00 - Acute gastritis without bleeding Plan: - BLAND diet - Advance diet slowly. - Avoid oily and greasy foods - Avoid Spicy foods. - Hydrate well with plenty of fluids (2) Nausea vomiting and diarrhea: Code(s): R11.2 - Nausea with vomiting, unspecified; R19.7 - Diarrhea, unspecified Plan: - BLAND diet - Advance diet slowly. - Avoid oily a Plan - BLAND diet - Advance diet slowly. - Avoid oily a Medications: New 2 ondansetron 8 mg PO Q8H 20 tabs 0RF nausea and vomiting K29.00 - Acute gastritis without bleeding, R11.2 - Nausea with vomiting, unspecified, R19.7 - Diarrhea, unspecified metoclopramide HCl (Reglan) 10 mg PO Q6H PRN 20 tabs 0RF nausea and vomiting K29.00 - Acute gastritis without bleeding, R11.2 - Nausea with vomiting, unspecified, R19.7 - Diarrhea, unspecified Refilled famotidine 20 mg PO BEDTIME 30 tabs 0RF K29.00 - Acute gastritis without bleeding Coding Level of Care Code Est Pt Level 3 (29268) Diagnoses Other acute gastritis without hemorrhage K29.00 Gastritis type: other gastritis Chronicity: acute Gastritis bleeding: without bleeding Nausea vomiting and diarrhea R11.2; R19.7 Time Spent (min) 15
[2024-01-26 15:07] VITALS: BP 122/74; PULSE 76; TEMP 37.1; O2SAT 96
== END 2024-01-26 16:41 | disposition home or self-care (01) ==
PROVIDERS: PCP Internal Medicine; Visit Provider Nurse Practitioner Family
DX: K29.00 Acute gastritis without bleeding (principal); R11.2 Nausea with vomiting, unspecified; R19.7 Diarrhea, unspecified
CPT/HCPCS: 99213

== ENCOUNTER 2024-02-17 14:52 | Outpatient (AMB) | payer OTHER, SELFPAY ==
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
[2024-02-17 14:57] VITALS: BP 128/72; PULSE 65; O2SAT 96
== END 2024-02-17 15:40 | disposition home or self-care (01) ==
PROVIDERS: PCP Internal Medicine; Visit Provider Student in an Organized Health Care Education/Training Program
DX: M25.50 Pain in unspecified joint (principal)
CPT/HCPCS: 99204

== ENCOUNTER → 2024-02-17 14:52 | Outpatient (BNVA) | payer OTHER, SELFPAY | PROVIDERS: PCP Internal Medicine; Visit Provider Student in an Organized Health Care Education/Training Program | DX: M25.50 Pain in unspecified joint (principal); M25.473 Effusion, unspecified ankle; M79.89 Other specified soft tissue disorders; M32.9 Systemic lupus erythematosus, unspecified; M10.9 Gout, unspecified | CPT/HCPCS: 99202 ==

== ENCOUNTER 2024-02-23 14:29 | Outpatient (REF) | payer OTHER, SELFPAY ==
[2024-02-23 16:08] LABS: MANUAL DIFF FLAG NO
[2024-02-23 16:22] LABS: Appearance Urine Clear; Color Urine Yellow; Glucose Urine UA Negative (Negative); Leukocyte Esterase Urine Small (1+) (Negative); Nitrite Urine Negative (Negative); UMIC TRIGGER UA YES; Urine Blood Negative (Negative); Urine Ketones Negative (Negative); Urine Protein Negative (Neg-Trace)
[2024-02-23 16:28] LABS: Bacteria Urine None Seen (None Seen); Hyaline Casts Urine 0-2 /LPF (0-2); RBC Urine 0-2 /HPF (0-2)
[2024-02-23 16:45] LABS: Basophils Absolute Auto 0.1 X10*3/uL (0.0-0.2); Eosinophils Absolute Auto 0.3 X10*3/uL (0.0-0.4); Eosinophils Percent Auto 3.3 % (0-4); Hematocrit 41.8 % (37.0-47.0); Hemoglobin 13.8 g/dl (12.0-16.0); Imm Gran Abs Auto 0.02 X10*3/uL (0.00-0.03); Imm Gran Pct Auto 0.2 % (0.0-0.4); Lymphocytes Percent Auto 23.2 % (20-40); Mean Corpuscular Hemoglobin 28.9 pg (27.0-33.0); Mean Corpuscular Volume 87.6 fL (80.0-98.0); Mean Platelet Volume 11.9 fL (9.4-12.3); Monocytes Absolute Auto 0.5 X10*3/uL (0.1-1.2); Monocytes Percent Auto 5.8 % (2-11); Neutrophils Absolute Auto 5.7 x10*3/uL (2.0-8.3); Neutrophils Percent Auto 66.5 % (45-73); Platelet Count 311 X10*3/uL (160-400); Red Blood Count 4.77 X10*6/uL (4.20-5.50); Red Cell Distribution Width 13.2 % (11.0-16.0); White Blood Count 8.6 X10*3/uL (4.8-10.8)
[2024-02-23 17:02] LABS: Alanine Aminotransferase 10 U/L (0-31); Albumin Level 4.3 g/dL (3.5-5.0); Alkaline Phosphatase 95 U/L (39-117); Anion Gap 15 (12-20); Aspartate Amino Transferase 11 U/L (5-31); Bilirubin Total 0.4 mg/dL (0.0-1.0); Blood Urea Nitrogen 17 mg/dL (9-16); C Reactive Protein 1.24 mg/dL (< or = 0.50); Calcium 9.4 mg/dL (8.4-10.2); Carbon Dioxide 24 mmol/L (22-29); Chloride 106 mmol/L (96-108); Estimated Glomerular Filt Rate > 60; Glucose Random 101 mg/dL (60-115); Potassium 3.8 mmol/L (3.3-5.1); Sodium 141 mmol/L (135-145); Total Protein 7.6 g/dL (6.5-8.0); Uric Acid 7.1 mg/dL (2.4-5.7)
[2024-02-23 17:15] LABS: Rheumatoid Factor < 13.0 IU/mL (<15.0)
[2024-02-23 17:37] LABS: Creatinine Urine 121.58 mg/dL; Total Protein Urine Random < 7 mg/dL (<12)
[2024-02-23 18:03] LABS: Erythrocyte Sedimentation Rate 17 MM/HR (0-20)
[2024-02-24 09:10] LABS: HBS Num1 0.35 mIU/mL (0-7.99); HBc Num1 0.09 S/CO (0.00-0.79); HBsAGNum1 0.33 S/CO (0.00-0.99); Hepatitis A Antibody IgM 0.14 Index (0-0.79); Hepatitis B Core Antibody Nonreactive (Nonreactive); Hepatitis B Surface Antigen Negative (Negative); ~HepC Num1 0.09 S/CO (0.00-0.79); ~Hepatitis A Antibody IgM Nonreactive (Nonreactive); ~Hepatitis B Surface Antibody NONREACTIVE (Nonreactive); ~Hepatitis C Antibody Nonreactive (Nonreactive)
[2024-02-24 10:48] LABS: Prot Elec - Albumin 4.2 g/dL (3.8-4.8); Prot Elec - Alpha1 0.3 g/dL (0.2-0.3); Prot Elec - Alpha2 0.8 g/dL (0.5-0.9); Prot Elec - Beta 1 0.5 g/dL (0.4-0.6); Prot Elec - Beta 2 0.4 g/dL (0.2-0.5); Prot Elec - Gamma 0.8 g/dL (0.8-1.7)
[2024-02-24 11:59] LABS: Complement C3 156 mg/dL (83-193)
[2024-02-24 15:18] LABS: Cyclic Citrullinated Peptide <16 UNITS
[2024-02-24 22:15] LABS: Anti DNA DS Antibody <1 IU/mL; Antibody to SS-A Antigen <1.0 NEG AI (<1.0 NEG); Antibody to SS-B Antigen <1.0 NEG AI (<1.0 NEG); SM/Ribonucleoprotein Ab <1.0 NEG AI (<1.0 NEG); Smith Protein <1.0 NEG AI (<1.0 NEG)
[2024-02-25 20:39] LABS: Anti Nuclear Antibody Screen NEGATIVE (NEGATIVE)
[2024-02-26 02:13] LABS: HLA B27 Negative (Negative)
[2024-02-26 14:39] LABS: DNAds, Crithidia Antibody Negative (Negative)
[2024-02-26 22:33] LABS: IgA 174 mg/dL (47-310); IgG 966 mg/dL (600-1640); IgM 79 mg/dL (50-300)
== END 2024-02-23 14:30 | disposition home or self-care (01) ==
LOC: HO.HMGCLDS 14:29
PROVIDERS: PCP Internal Medicine; Visit Provider Student in an Organized Health Care Education/Training Program
DX: Z11.59 Encounter for screening for other viral diseases (principal); M32.9 Systemic lupus erythematosus, unspecified; M25.50 Pain in unspecified joint; M10.9 Gout, unspecified; M45.9 Ankylosing spondylitis of unspecified sites in spine; Z72.89 Other problems related to lifestyle
CPT/HCPCS: 36415; 80053; 81001; 82570; 82784; 84156; 84165; 84550; 85025; 85652; 86038; 86140; 86160; 86200; 86225; 86235; 86255; 86334; 86431; 86704; 86706; 86709; 86803; 86812; 87340

== ENCOUNTER 2024-03-09 14:02 | Outpatient (AMB) | payer OTHER, SELFPAY ==
[2024-03-09 14:03] VITALS: BP 118/66; PULSE 71; O2SAT 95
--- NOTE | 2024-03-09 14:03 | A.OFFPC_ITS ---
Vital Signs 03/09/24 14:03 Height 5 ft 3 in BMI Reason not done Patient refused/unable BP 118/66 Blood Pressure Location Lt brachial Position Sitting Pulse 71 Pulse Source Pulse Oximeter Pulse Oximetry (%) 95 Oxygen Delivery Method Room Air Intake Visit Reasons: Follow up complex on labs Intake Note: Pt is here today for a follow up visit. Allergies procaine [From NOVOCAIN] Allergy (Severe, Verified 03/09/24 14:04) ANAPHYLAXIS methadone [METHADONE] Allergy (Intermediate, Verified 03/09/24 14:04) FLUID BUILD UP AROUND HEART ciprofloxacin [CIPROFLOXACIN] Adverse Reaction (Intermediate, Verified 03/09/24 14:04) REACTION WITH MUSCLE RELAXERS clindamycin [CLINDAMYCIN] Adverse Reaction (Intermediate, Verified 03/09/24 14:04) PALPITATIONS Medication List - Last Reconciled 03/09/24 by Faye Delgado MD amlodipine 10 mg PO DAILY [barrier cream As directed] [cleansing wipes As directed] cyanocobalamin (vitamin B-12) 1,000 mcg PO DAILY docusate sodium 100 mg PO BEDTIME famotidine 20 mg PO BEDTIME hydroxyzine HCl 25 mg PO ONCE incontinence pad, liner, disp (Poise Pads) As directed incontinence pad, liner, disp As directed-medium absorbancy lisinopril 30 mg PO DAILY lorazepam 0.5 mg PO TID PRN metoclopramide HCl (Reglan) 10 mg PO Q6H PRN ondansetron 8 mg PO Q8H prednisone Take 4 tabs by mouth daily for 1 week, 3 tabs daily for 1 week, 2 tabs daily for 1 week, 1 tab daily for 1 week then stop pregabalin 75 mg PO TID quetiapine 0 mg PO ropinirole 0.25 mg PO .QID tizanidine 4 mg PO BID trazodone 100 mg PO BEDTIME PRN [Washable bed pad As directed] zolpidem 5 mg PO BEDTIME PRN Tobacco use date assessed: 03/09/24 Dental Screening Dental Screen Date: 03/09/24 Did you have a dental visit in the last 12 months?: Yes Did you have a dental problem in the last 6 months where you did not have access to dental care?: No Was dental information given to patient?: Patient has dentist HPI Follow up complex on labs HPI Details Patient presents for the follow-up on hypertension stable on current medications. 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 Patient was started on 20 mg of prednisone and felt significantly better after few days. She follows up with psychiatrist for chronic depression [facility] Medical History Psoriasis Hyperglycemia Annual physical exam GI (gastrointestinal bleed) Diverticulitis Abdominal pain Vitamin B12 deficiency Osteoarthritis of right knee Fibromyalgia Lumbar degenerative disc disease Cervical radiculopathy Depression Vitamin D deficiency HTN (hypertension) Hyperlipidemia Surgical History Hx of colonoscopy H/O Spinal surgery Family History Mother Lupus (systemic lupus erythematosus) Rheumatoid arthritis Social History Housing: House Alcohol intake: current Alcohol intake frequency: does not drink Patient Tobacco Use Status: Former Tobacco user e-Cigarette/Vaping Use: Currently Using Second Hand Smoke Exposure: No service: No Current occupational status: disabled Cognitive needs: No Hearing needs: No Vision needs: No Questionnaire PHQ-9 Over the last 2 weeks, how often have you been bothered by any of the following problems? 1. Little interest or pleasure in doing things: more than half the days 2. Feeling down, depressed, or hopeless: more than half the days 3. Trouble falling or staying asleep, or sleeping too much: more than half the days 4. Feeling tired or having little energy: more than half the days 5. Poor appetite or overeating: more than half the days 6. Feeling bad about yourself - or that you are a failure or have let yourself or your family down: more than half the days 7. Trouble concentrating on things, such as reading the newspaper or watching television: more than half the days 8. Moving or speaking so slowly that other people could have noticed. Or the opposite - being so fidgety or restless that you have been moving around a lot more than usual: several days 9. Thoughts that you would be better off or of hurting yourself in some way: more than half the days Total score: 17 Depression Screening Interpretation: Positive (Patient is established with psychiatrist and a therapist) Depression Screening Follow-up: Existing condition and In treatment Depression Screening Done: Yes Source: Developed by Drs. Miles Torres, Robert Nath and colleagues, with an educational brittney from [employer]. Thrive Questionnaire Date Thrive assessed: 03/09/24 I am a: Patient What is your living situation today?: I have a steady place to live Within the past 12 months, did the food you bought not last and you didn't have the money to get more?: Sometimes True Within the past 12 months, did you worry whether your food would run out before you got money to buy more?: Sometimes True Do you have trouble paying for medicines?: No Do you have trouble getting transportation to medical appointments?: No Do you have trouble paying your heating and electricity bill?: Yes Do you have trouble taking care of your child, family member or friend?: No Do you have trouble with day-to-day activities such as bathing, preparing meals, shopping, managing finances, etc.?: Yes Are you currently unemployed and looking for a job?: No Are you interested in more education?: No THRIVE Score: 3 AUDIT C Alcohol Use Questionnaire (AUDIT-C) 1. How often do you have a drink containing alcohol?: Never 3. How often do you have six or more drinks on one occasion?: Never Total Score: 0 HENRRY-7 AMB Questionnaire HENRRY-7 Date HENRRY - 7 assessed: 03/09/24 Feeling nervous, anxious, or on edge: 2 = More than half the days Not being able to stop or control worryin = More than half the days Worrying too much about different things: 2 = More than half the days Trouble relaxin = Nearly every day Being so restless that it is hard to sit still: 2 = More than half the days Becoming easily annoyed or irritable: 1 = Several days Feeling afraid as if something awful might happen: 3 = Nearly every day Total HENRRY-7 score (0-4 normal; 5-9 mild; 10-14 moderate; 15-21 severe): 15 Source: Developed by Ramonita Genao Kurt Kroenke and colleagues, with an educational brittney from [employer]. Review of Systems Const All systems reviewed & are unremarkable except as noted in HPI and below Eyes Reports no additional complaints ENT Reports no additional complaints Card Reports no additional complaints Resp Reports no additional complaints GI Reports no additional complaints Reports no additional complaints Physical exam (Primary Care) Vital Signs: Last Vital Signs Pulse 71 03/09/24 14:03 BP 118/66 03/09/24 14:03 Pulse Ox 95 03/09/24 14:03 Oxygen Delivery Method Room Air 03/09/24 14:03 Tobacco/Smoking Status: Tobacco use Status Tobacco use date assessed 03/09/24 03/09/24 14:04 Patient Tobacco Use Status Former Tobacco user 03/09/24 14:04 e-Cigarette/Vaping Use Currently Using 03/09/24 14:04 Depression Screening Interpretation: Positive (Patient is established with psychiatrist and a therapist) Depression Screening Follow-up: Existing condition and In treatment Thrive Assessment: Date of Thrive Assessment Date Thrive assessed 05/01/23 03/09/24 14:04 Const General: no acute distress HENMT Ears: hearing grossly normal bilaterally Throat: Yes posterior oropharynx normal Resp Effort & Inspection: normal respiratory effort Auscultation: clear to auscultation bilaterally Cardio Rhythm: regular rhythm Heart sounds: S1 normal heart sound present and S2 normal heart sound present GI Inspection: Yes normal to inspection Palpation (GI): Soft to palpation Percussion: Yes normal to percussion Auscultation: normal bowel sounds Assessment and Plan Assessment & Plan (1) Polyarthralgia: Code(s): M25.50 - Pain in unspecified joint Plan: Follow-up with rheumatology (2) HTN (hypertension): Code(s): I10 - Essential (primary) hypertension Plan: Continue current medications (3) Hyperlipidemia: Code(s): E78.5 - Hyperlipidemia, unspecified Plan: Continue low-cholesterol diet, weight loss discussed with the patient (4) Depression: Comment: f/u psychiatrist Dr. Parada Code(s): F32.9 - Major depressive disorder, single episode, unspecified Plan: Continue current medications and follow-up with the psychiatrist Orders: Orders Comprehensive Ora. Panel Fast 1 Year E78.5 - Hyperlipidemia, unspecified, I10 - Essential (primary) hypertension, R73.9 - Hyperglycemia, unspecified, Z00.00 - Encounter for general adult medical examination without abnormal findings Complete Blood Count Auto Diff 1 Year E78.5 - Hyperlipidemia, unspecified, I10 - Essential (primary) hypertension, R73.9 - Hyperglycemia, unspecified, Z00.00 - Encounter for general adult medical examination without abnormal findings Lipid Panel 1 Year E78.5 - Hyperlipidemia, unspecified, I10 - Essential (primary) hypertension, R73.9 - Hyperglycemia, unspecified, Z00.00 - Encounter for general adult medical examination without abnormal findings Vitamin D 25-OH Total 1 Year E78.5 - Hyperlipidemia, unspecified, I10 - Essential (primary) hypertension, R73.9 - Hyperglycemia, unspecified, Z00.00 - Encounter for general adult medical examination without abnormal findings TSH reflex Free T4 1 Year E78.5 - Hyperlipidemia, unspecified, I10 - Essential (primary) hypertension, R73.9 - Hyperglycemia, unspecified, Z00.00 - Encounter for general adult medical examination without abnormal findings Medications: New lisinopril 30 mg PO DAILY 90 tabs 3RF Refilled amlodipine 10 mg PO DAILY 90 tabs 3RF Coding Level of Care Code Est Pt Level 4 (68303) Diagnoses Polyarthralgia M25.50 HTN (hypertension) I10 Hyperlipidemia E78.5 Depression F32.9
== END 2024-03-09 14:45 | disposition home or self-care (01) ==
LOC: HO.HMGC 14:02
PROVIDERS: PCP Internal Medicine; Visit Provider Internal Medicine
DX: I10 Essential (primary) hypertension (principal); M25.50 Pain in unspecified joint; E78.5 Hyperlipidemia, unspecified; F32.9 Major depressive disorder, single episode, unspecified
CPT/HCPCS: 99214

== ENCOUNTER 2024-03-29 11:43 | Emergency (ER) | payer OTHER, SELFPAY ==
--- NOTE | ~2024-03-29 | XR_ITS ---
EXAMINATION: XR CHEST CLINICAL INFORMATION: Shortness of breath COMPARISON: None available. TECHNIQUE: 2 views of the chest were obtained. FINDINGS: No significant abnormality is noted involving the heart, lungs, mediastinum or soft tissues. Partial visualization of anterior plate and screws are seen in the lower cervical/upper thoracic spine. XR/XR chest 2V IMPRESSION: No acute disease.
[2024-03-29 13:10] VITALS: BP 126/79; PULSE 77; RESP 20; TEMP 36.9; O2SAT 96; BMI 36.6
--- NOTE | 2024-03-29 13:10 | ED_ITS ---
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 with GI symptoms no recent intake of antibiotic Related Data Home Medications ?Medication ?Instructions ?Recorded ?Confirmed lorazepam 0.5 mg tablet 0.5 mg PO TID PRN 10/04/20 05/01/23 trazodone 100 mg tablet 100 mg PO BEDTIME PRN insomnia 10/04/20 05/01/23 zolpidem 5 mg tablet 5 mg PO BEDTIME PRN 10/04/20 05/01/23 hydroxyzine HCl 25 mg tablet 25 mg PO ONCE 04/11/21 05/01/23 quetiapine 25 mg tablet 0 mg PO 11/26/22 05/01/23 Previous Rx's ?Medication ?Instructions ?Recorded cyanocobalamin (vitamin B-12) 1,000 mcg PO DAILY #90 tabs 01/30/23 1,000 mcg tablet ropinirole 0.25 mg tablet 0.25 mg PO .QID #360 tabs 08/25/23 incontinence pad, liner, disp #120 ea 09/02/23 (Poise Pads) docusate sodium 100 mg capsule 100 mg PO BEDTIME #30 caps 11/27/23 Washable bed pad #6 ea 12/29/23 barrier cream #1 ea 12/29/23 cleansing wipes #100 ea 12/29/23 incontinence pad, liner, disp #104 ea 12/29/23 tizanidine 4 mg tablet 4 mg PO BID #60 tabs 01/23/24 famotidine 20 mg tablet 20 mg PO BEDTIME #30 tabs 01/26/24 metoclopramide HCl 10 mg tablet 10 mg PO Q6H PRN nausea and 01/26/24 (Reglan) vomiting #20 tabs ondansetron 8 mg disintegrating 8 mg PO Q8H nausea and vomiting 01/26/24 tablet #20 tabs pregabalin 75 mg capsule 75 mg PO TID #270 caps 01/29/24 prednisone 5 mg tablet See Rx Instructions PO .COMPLEX 02/17/24 #70 tabs amlodipine 10 mg tablet 10 mg PO DAILY #90 tabs 03/09/24 lisinopril 30 mg tablet 30 mg PO DAILY #90 tabs 03/09/24 loperamide 2 mg tablet (Imodium 2 mg PO Q6H PRN loose stool #14 03/29/24 A-D) tabs ondansetron 4 mg disintegrating 4 mg PO Q6-8H PRN nausea and 03/29/24 tablet vomiting #7 tabs Allergies Allergy/AdvReac Type Severity Reaction Status Date / Time procaine [From NOVOCAIN] Allergy Severe ANAPHYLAXIS Verified 03/29/24 13:11 methadone [METHADONE] Allergy Intermediate FLUID Verified 03/29/24 13:11 BUILD UP AROUND HEART ciprofloxacin [CIPROFLOXACIN] AdvReac Intermediate REACTION Verified 03/29/24 13:11 WITH MUSCLE RELAXERS clindamycin [CLINDAMYCIN] AdvReac Intermediate PALPITATION Verified 03/29/24 13:11 S Review of Systems 2 Review of Systems: Yes all other systems are reviewed and are negative [facility] Past Medical History Medical History Psoriasis Hyperglycemia Annual physical exam GI (gastrointestinal bleed) Diverticulitis Abdominal pain Vitamin B12 deficiency Osteoarthritis of right knee Fibromyalgia Lumbar degenerative disc disease Cervical radiculopathy Depression Vitamin D deficiency HTN (hypertension) Hyperlipidemia Surgical History Hx of colonoscopy H/O Spinal surgery Family History Family History Mother Lupus (systemic lupus erythematosus) Rheumatoid arthritis Social History Social History Housing: House Alcohol intake: current Alcohol intake frequency: does not drink Patient Tobacco Use Status: Former Tobacco user Smoked in Last 30 Days: No e-Cigarette/Vaping Use: Currently Using Second Hand Smoke Exposure: No Use of substances other than those prescribed or required for medical reasons: No Advance Directives: No Advance Directives Information Provided: No Do you have a plan to hurt others: No Plan Patient : No service: No Current occupational status: disabled Cognitive needs: No Hearing needs: No Vision needs: No Physical Exam ED Vital Signs: Vital Signs - 24 hr 03/29/24 13:10 03/29/24 19:08 Temperature 98.5 F 97.6 F Pulse Rate 77 75 Respiratory Rate 20 20 Blood Pressure 126/79 139/85 Pulse Oximetry 96 98 Oxygen Delivery Method Room Air Room Air BMI result Body Mass Index 36.6 Appearance: Alert. Oriented X3. No acute distress. Eyes: No pallor or icterus ENT: Pharynx normal. Oral Mucosa moist Neck: Normal inspection. Neck supple. CVS: Normal heart rate and rhythm. Pulses normal. Respiratory: No respiratory distress. Equal air entry bilateral, no wheezing/rales/rhonchi Abdomen: Soft and nontender. Bowel sounds are present, no mass palpable, no CVA tenderness Skin: Skin warm and dry. Normal skin color. Normal skin turgor. Extremities: No lower extremity edema. No calf tenderness Neuro: Oriented X 3. No motor deficit. No sensory deficit.No cerebellar signs , cranial nerves II-XII intact Course Course Course Narrative: RME- 58-year-old female presents for evaluation of abdominal pain, vomiting, diarrhea. She reports her symptoms started shortly after discontinuing prednisone for which she was on for 1 month for ?arthritis. ? She reports her symptoms are similar to when she had C diff in the past but she has not been on any antibiotics recently. The patient also states that she is having intermittent shortness of breath. Denies any chest pain. Plan for labs, UA, stool studies. Medical Decision Making Lab Data MDM Lab Attestation statement: I reviewed the patient's lab results. 03/29/24 16:14 03/29/24 16:14 Labs: Lab Results 03/29/24 03/29/24 Range/Units 16:14 20:42 WBC 9.3 (4.8-10.8) X10*3/uL RBC 4.90 (4.20-5.50) X10*6/uL Hgb 14.5 (12.0-16.0) g/dl Hct 42.8 (37.0-47.0) % MCV 87.3 (80.0-98.0) fL MCH 29.6 (27.0-33.0) pg MCHC 33.9 (31.0-35.0) g/dl RDW 13.2 (11.0-16.0) % Plt Count 350 (160-400) X10*3/uL MPV 10.8 (9.4-12.3) fL Immature Gran % (Auto) 0.3 (0.0-0.4) % Neut % (Auto) 65.7 (45-73) % Lymph % (Auto) 24.5 (20-40) % [place] % (Auto) 5.5 (2-11) % Eos % (Auto) 3.2 (0-4) % Baso % (Auto) 0.8 (0-2) % Lymph # (Auto) 2.3 (1.2-4.9) X10*3/uL [place] # (Auto) 0.5 (0.1-1.2) X10*3/uL Eos # (Auto) 0.3 (0.0-0.4) X10*3/uL Baso # (Auto) 0.1 (0.0-0.2) X10*3/uL Abs Immat Gran (auto) 0.03 (0.00-0.03) X10*3/uL Absolute Neuts (auto) 6.1 (2.0-8.3) x10*3/uL Absolute Nucleated RBC 0.000 (0.0-0.012) X10*3/uL Nucleated RBC % (auto) 0.0 (0.0-0.2) /100WBC Sodium 140 (135-145) mmol/L Potassium 4.1 (3.3-5.1) mmol/L Chloride 107 (96-108) mmol/L Carbon Dioxide 24 (22-29) mmol/L Anion Gap 13 (12-20) BUN 22 H (9-16) mg/dL Creatinine 1.01 (0.5-1.4) mg/dL Estim Creat Clear Calc 64.3 Estimated GFR 56 Random Glucose 121 H (60-115) mg/dL Calcium 9.8 (8.4-10.2) mg/dL Total Bilirubin 0.4 (0.0-1.0) mg/dL AST 12 (5-31) U/L ALT 18 (0-31) U/L Alkaline Phosphatase 101 (39-117) U/L Total Protein 7.8 (6.5-8.0) g/dL Albumin 4.4 (3.5-5.0) g/dL Lipase 20 (8-78) U/L Stl C. cayetanensis PCR Not Detected (Not Detect.) Stool Rotavirus A PCR Not Detected (Not Detect.) Stl Adenov F 40/41 PCR Not Detected (Not Detect.) Stool Astrovirus (PCR) Not Detected (Not Detect.) Stool Campylobacter PCR Not Detected (Not Detect.) Stool Cryptosporidium PCR Not Detected (Not Detect.) Stl Sh Tox Pr E STEC PCR Not Detected (Not Detect.) Stool E coli O157 PCR Not applicable (Not Detect.) Stl Enterotoxigenic E PCR Not Detected (Not Detect.) Stool EPEC (PCR) Not Detected (Not Detect.) Stool EAEC (PCR) Not Detected (Not Detect.) Stl E. histolytica PCR Not Detected (Not Detect.) Stool Giardia Lamblia PCR Not Detected (Not Detect.) Stl P. shigelloides PCR Not Detected (Not Detect.) Stool Salmonella PCR Not Detected (Not Detect.) Stool Sapovirus (PCR) Not Detected (Not Detect.) Stl Shigella/EIEC PCR Not Detected (Not Detect.) St Y.enterocolitica PCR Not Detected (Not Detect.) Stool Vibrio (PCR) Not Detected (Not Detect.) Stl Vibrio cholerae PCR Not Detected (Not Detect.) Stl Norovirus GI/GII PCR Not Detected (Not Detect.) C. difficile Tox B Gene NEGATIVE (Negative) Influenza Type A (PCR) NEGATIVE (Negative) Influenza Type B (PCR) NEGATIVE (Negative) RSV RNA Qual (PCR) NEGATIVE (Negative) SARS-CoV-2 RNA (RT-PCR) NEGATIVE (Negative) Discharge Plan Discharge Clinical Impression: Gastroenteritis Patient Disposition: Home, Self-Care Instructions: Gastroenteritis (ED) Additional Instructions: Drink plenty of fluids Imodium for severe diarrhea Zofran for nausea Prescriptions: New loperamide [Imodium A-D] 2 mg tablet 2 mg PO Q6H PRN (Reason: loose stool) Qty: 14 0RF ondansetron 4 mg tablet,disintegrating 4 mg PO Q6-8H PRN (Reason: nausea and vomiting) Qty: 7 0RF No Action cyanocobalamin (vitamin B-12) 1,000 mcg tablet 1,000 mcg PO DAILY Qty: 90 3RF ropinirole 0.25 mg tablet 0.25 mg PO .QID Qty: 360 3RF (DME) Poise Pads Pad See Rx Instructions .Route Qty: 120 11RF Rx Instructions: As directed docusate sodium 100 mg capsule 100 mg PO BEDTIME Qty: 30 3RF (DME) Washable bed pad Full size See Rx Instructions .Route .MEDSUPPLY Qty: 6 0RF Rx Instructions: As directed (DME) barrier cream See Rx Instructions .Route .MEDSUPPLY Qty: 1 11RF Rx Instructions: As directed (DME) cleansing wipes See Rx Instructions .Route .MEDSUPPLY Qty: 100 11RF Rx Instructions: As directed (DME) incontinence pad, liner, disp Pad See Rx Instructions .Route Qty: 104 11RF Rx Instructions: As directed-medium absorbancy tizanidine 4 mg tablet 4 mg PO BID Qty: 60 4RF pregabalin 75 mg capsule 75 mg PO TID Qty: 270 0RF lorazepam 0.5 mg tablet 0.5 mg PO TID PRN zolpidem 5 mg tablet 5 mg PO BEDTIME PRN trazodone 100 mg tablet 100 mg PO BEDTIME PRN (Reason: insomnia) hydroxyzine HCl 25 mg tablet 25 mg PO ONCE metoclopramide HCl [Reglan] 10 mg tablet 10 mg PO Q6H PRN (Reason: nausea and vomiting) Qty: 20 0RF ondansetron 8 mg tablet,disintegrating 8 mg PO Q8H Qty: 20 0RF famotidine 20 mg tablet 20 mg PO BEDTIME Qty: 30 0RF amlodipine 10 mg tablet 10 mg PO DAILY Qty: 90 3RF lisinopril 30 mg tablet 30 mg PO DAILY Qty: 90 3RF quetiapine 25 mg tablet 0 mg PO prednisone 5 mg tablet See Rx Instructions PO .COMPLEX Qty: 70 0RF Rx Instructions: Take 4 tabs by mouth daily for 1 week, 3 tabs daily for 1 week, 2 tabs daily for 1 week, 1 tab daily for 1 week then stop Interventions: ED Discharge Assessment Last Done: 03/29/24 20:53 Discharge Date/Time: 03/29/24 20:54 Print Language: Guinean
[2024-03-29 16:20] LABS: MANUAL DIFF FLAG NO
[2024-03-29 16:21] LABS: Basophils Absolute Auto 0.1 X10*3/uL (0.0-0.2); Basophils Percent Auto 0.8 % (0-2); Eosinophils Absolute Auto 0.3 X10*3/uL (0.0-0.4); Eosinophils Percent Auto 3.2 % (0-4); Hematocrit 42.8 % (37.0-47.0); Hemoglobin 14.5 g/dl (12.0-16.0); Imm Gran Abs Auto 0.03 X10*3/uL (0.00-0.03); Imm Gran Pct Auto 0.3 % (0.0-0.4); Lymphocytes Absolute Auto 2.3 X10*3/uL (1.2-4.9); Lymphocytes Percent Auto 24.5 % (20-40); Mean Corpuscular HGB Conc 33.9 g/dl (31.0-35.0); Mean Corpuscular Hemoglobin 29.6 pg (27.0-33.0); Mean Corpuscular Volume 87.3 fL (80.0-98.0); Mean Platelet Volume 10.8 fL (9.4-12.3); Monocytes Absolute Auto 0.5 X10*3/uL (0.1-1.2); Monocytes Percent Auto 5.5 % (2-11); Neutrophils Absolute Auto 6.1 x10*3/uL (2.0-8.3); Neutrophils Percent Auto 65.7 % (45-73); Platelet Count 350 X10*3/uL (160-400); Red Cell Distribution Width 13.2 % (11.0-16.0); White Blood Count 9.3 X10*3/uL (4.8-10.8)
[2024-03-29 16:36] LABS: Alanine Aminotransferase 18 U/L (0-31); Albumin Level 4.4 g/dL (3.5-5.0); Alkaline Phosphatase 101 U/L (39-117); Anion Gap 13 (12-20); Aspartate Amino Transferase 12 U/L (5-31); Bilirubin Total 0.4 mg/dL (0.0-1.0); Blood Urea Nitrogen 22 mg/dL (9-16); Calcium 9.8 mg/dL (8.4-10.2); Carbon Dioxide 24 mmol/L (22-29); Chloride 107 mmol/L (96-108); Creatinine Clr Calc Pharmacy 64.3; Estimated Glomerular Filt Rate 56; Glucose Random 121 mg/dL (60-115); Lipase 20 U/L (8-78); Potassium 4.1 mmol/L (3.3-5.1); Sodium 140 mmol/L (135-145); Total Protein 7.8 g/dL (6.5-8.0)
[2024-03-29 17:22] LABS: Influenza A PCR NEGATIVE (Negative); Influenza B PCR NEGATIVE (Negative); Resp Syncy Virus RNA Qual PCR NEGATIVE (Negative); SARS COV2 PCR INHOUSE NEGATIVE (Negative)
[2024-03-29 19:08] VITALS: BP 139/85; PULSE 75; RESP 20; TEMP 36.4; O2SAT 98
[2024-03-29 20:53] VITALS: BP 139/85; PULSE 75; RESP 20; TEMP 36.4; O2SAT 98
[2024-03-29 21:38] LABS: CDiff Gene PCR NEGATIVE (Negative)
[2024-03-30 10:16] LABS: Adenovirus F 40/41 Not Detected (Not Detect.); Astrovirus Not Detected (Not Detect.); Campylobacter Not Detected (Not Detect.); Cryptosporidium Not Detected (Not Detect.); Cyclospora cayetanensis Not Detected (Not Detect.); E. coli EAEC Not Detected (Not Detect.); E. coli EPEC Not Detected (Not Detect.); E. coli ETEC Not Detected (Not Detect.); E. coli STEC Not Detected (Not Detect.); Entamoeba histolytica Not Detected (Not Detect.); Giardia lamblia Not Detected (Not Detect.); Norovirus GI/GII Not Detected (Not Detect.); Plesiomonas shigelloides Not Detected (Not Detect.); Rotavirus A Not Detected (Not Detect.); Salmonella Not Detected (Not Detect.); Sapovirus Not Detected (Not Detect.); Shigella sp./EIEC Not Detected (Not Detect.); Vibrio Not Detected (Not Detect.); Vibrio Cholerae Not Detected (Not Detect.); Yersinia enterocolitica Not Detected (Not Detect.)
== END 2024-03-29 20:54 | disposition home or self-care (01) ==
PROVIDERS: Physician Assistant; Emergency Provider Internal Medicine; PCP Internal Medicine
DX: K52.9 Noninfective gastroenteritis and colitis, unspecified (principal); R06.02 Shortness of breath; Z03.818 Encounter for observation for suspected exposure to other biological agents ruled out; I10 Essential (primary) hypertension; E78.5 Hyperlipidemia, unspecified; Z87.891 Personal history of nicotine dependence
CPT/HCPCS: 0241U; 71046; 80053; 83690; 85025; 87493; 87507; 99283; 99284

== ENCOUNTER 2024-05-28 10:03 | Outpatient (REF) | payer OTHER, SELFPAY ==
--- NOTE | ~2024-05-28 | XR_ITS ---
EXAMINATION: XR SHOULDER, LEFT CLINICAL INFORMATION: Pain. COMPARISON: None available. TECHNIQUE: AP external rotation, Grashey, scapular Y, and axillary views of the left shoulder. FINDINGS: Bony alignment and mineralization are normal. The glenohumeral joint is intact. The acromioclavicular and coracoclavicular intervals are normal. There is mild osteoarthritic change of the glenohumeral and acromioclavicular joints. No fracture or dislocation is seen. There is no soft tissue calcification or foreign body. A tiny distal acromial undersurface osteophyte is seen. No left pneumothorax is seen. XR/XR shoulder LT min 2V IMPRESSION: 1. No fracture or dislocation is seen. 2. There is mild osteoarthritic change of the left glenohumeral and acromioclavicular joints. 3. A tiny distal acromial undersurface osteophyte is seen, which can be associated with rotator cuff impingement. No jacob calcific tendinitis is noted. Electronically signed by: Nikolay Murrell MD 06/21/2024 05:15 PM EDT
--- NOTE | ~2024-05-28 | XR_ITS ---
EXAMINATION: XR SHOULDER, RIGHT CLINICAL INFORMATION: Pain COMPARISON: None available. TECHNIQUE: AP external rotation, Grashey, scapular Y, and axillary views of the right shoulder. FINDINGS: Mild degenerative changes in the acromioclavicular joint. Glenohumeral alignment is preserved. Faint calcific/ossific densities along the superior aspect of the glenoid, acromioclavicular joint and humeral head. Surgical hardware is incompletely visualized in the cervical spine. XR/XR shoulder RT min 2V IMPRESSION: 1. Mild degenerative changes in the acromioclavicular joint. 2. Faint calcific/ossific densities along the superior aspect of the glenoid, acromioclavicular joint and humeral head. 3. Electronically signed by: Lyndsay Chow MD 06/22/2024 01:19 PM EDT
--- NOTE | ~2024-05-28 | XR_ITS ---
EXAMINATION: XR ANKLE, RIGHT XR FOOT, RIGHT CLINICAL INFORMATION: Pain. COMPARISON: None available. TECHNIQUE: AP, lateral, and mortise views of the right ankle. AP, lateral, and oblique views of the right foot. FINDINGS: Bony alignment and mineralization are normal. The ankle mortise is intact. No fracture, dislocation or right ankle joint effusion is seen. Boehler's angle is normal. There is a small plantar calcaneal spur. No focal soft tissue swelling, gas or foreign body is seen. XR/XR foot RT min 3V IMPRESSION: 1. No right ankle fracture, dislocation or joint effusion is seen. 2. A small plantar calcaneal spur is seen. Electronically signed by: Nikolay Murrell MD 06/21/2024 01:01 PM EDT
--- NOTE | ~2024-05-28 | XR_ITS ---
EXAMINATION: XR ANKLE, RIGHT XR FOOT, RIGHT CLINICAL INFORMATION: Pain. COMPARISON: None available. TECHNIQUE: AP, lateral, and mortise views of the right ankle. AP, lateral, and oblique views of the right foot. FINDINGS: Bony alignment and mineralization are normal. The ankle mortise is intact. No fracture, dislocation or right ankle joint effusion is seen. Boehler's angle is normal. There is a small plantar calcaneal spur. No focal soft tissue swelling, gas or foreign body is seen. XR/XR ankle RT min 3V IMPRESSION: 1. No right ankle fracture, dislocation or joint effusion is seen. 2. A small plantar calcaneal spur is seen. Electronically signed by: Nikolay Murrell MD 06/21/2024 01:01 PM EDT
--- NOTE | ~2024-05-28 | XR_ITS ---
EXAMINATION: XR HAND/WRIST, RIGHT CLINICAL INFORMATION: Pain and unspecified joint COMPARISON: May 28, 2024 TECHNIQUE: Four views of the right hand and wrist. FINDINGS: RIGHT HAND/WRIST: Moderate degenerative changes in the first carpometacarpal and metacarpophalangeal joints with joint space narrowing and hypertrophic change. Mild degenerative changes with hypertrophic change involving the fourth and fifth digit distal interphalangeal joints. XR/XR hand wrist RT IMPRESSION: 1. Moderate degenerative changes in the first carpometacarpal and metacarpophalangeal joints. 2. Mild degenerative changes with hypertrophic change involving the fourth and fifth digit distal interphalangeal joints. 3. Recommend follow-up imaging in 10-14 days if fracture is suspected. Electronically signed by: Lyndsay Chow MD 06/22/2024 01:32 PM EDT
--- NOTE | ~2024-05-28 | XR_ITS ---
EXAMINATION: XR ANKLE, LEFT XR FOOT, LEFT CLINICAL INFORMATION: Pain. COMPARISON: None available. TECHNIQUE: AP, lateral, and mortise views of the left ankle. AP, lateral, and oblique views of the left foot. FINDINGS: Bony alignment and mineralization are normal. The ankle mortise is intact. No fracture, dislocation or left ankle joint effusion is seen. Boehler's angle is normal. There is a moderate plantar calcaneal spur. A small well corticated accessory ossification center or chronic avulsion fragment is noted dorsal to the talus. No focal soft tissue swelling, gas or foreign body is seen. XR/XR foot LT min 3V IMPRESSION: 1. No fracture, dislocation left ankle joint effusion is seen. 2. There is a moderate plantar calcaneal spur. Electronically signed by: Nikolay Murrell MD 06/21/2024 12:54 PM EDT
--- NOTE | ~2024-05-28 | XR_ITS ---
EXAMINATION: XR ANKLE, LEFT XR FOOT, LEFT CLINICAL INFORMATION: Pain. COMPARISON: None available. TECHNIQUE: AP, lateral, and mortise views of the left ankle. AP, lateral, and oblique views of the left foot. FINDINGS: Bony alignment and mineralization are normal. The ankle mortise is intact. No fracture, dislocation or left ankle joint effusion is seen. Boehler's angle is normal. There is a moderate plantar calcaneal spur. A small well corticated accessory ossification center or chronic avulsion fragment is noted dorsal to the talus. No focal soft tissue swelling, gas or foreign body is seen. XR/XR ankle LT min 3V IMPRESSION: 1. No fracture, dislocation left ankle joint effusion is seen. 2. There is a moderate plantar calcaneal spur. Electronically signed by: Nikolay Murrell MD 06/21/2024 12:52 PM EDT
--- NOTE | ~2024-05-28 | XR_ITS ---
EXAMINATION: XR HAND/WRIST, LEFT CLINICAL INFORMATION: Pain. COMPARISON: None TECHNIQUE: PA, lateral, and oblique views of the left hand and wrist are submitted. FINDINGS: Bony alignment and mineralization are normal. There is a neutral ulnar variance. The proximal and distal carpal rows are intact. No fracture or dislocation is seen. The joint spaces are well-maintained. A tiny periarticular calcification is seen adjacent to the second distal interphalangeal joint. There is no abnormal bone erosion. No focal soft tissue swelling, gas or foreign body is seen. XR/XR hand wrist LT IMPRESSION: A minimal periarticular calcification is noted adjacent to the second distal interphalangeal joint.. The examination is otherwise unremarkable. Electronically signed by: Nikolay Murrell MD 06/21/2024 05:13 PM EDT
--- NOTE | ~2024-05-28 | XR_ITS ---
EXAMINATION: XR BILATERAL KNEES CLINICAL INFORMATION: Pain. TECHNIQUE: AP standing, tunnel, lateral and sunrise views of bilateral knees. COMPARISON: 07/19/2019. TECHNIQUE: 4 views of each knee. FINDINGS: RIGHT KNEE: Diffuse demineralization. Trace joint effusion. Severe degenerative changes in the medial compartment with obliteration of the joint space. Advanced degenerative changes in the lateral and patellofemoral compartments with joint space narrowing and hypertrophic change. LEFT KNEE: Diffuse demineralization. Trace joint effusion. Moderate degenerative changes in the tricompartments with joint space narrowing and hypertrophic change. XR/XR knee LT 4V IMPRESSION: 1. Severe degenerative changes right knee. 2. Moderate degenerative changes left knee.
--- NOTE | ~2024-05-28 | XR_ITS ---
EXAMINATION: XR BILATERAL KNEES CLINICAL INFORMATION: Pain. TECHNIQUE: AP standing, tunnel, lateral and sunrise views of bilateral knees. COMPARISON: 07/19/2019. TECHNIQUE: 4 views of each knee. FINDINGS: RIGHT KNEE: Diffuse demineralization. Trace joint effusion. Severe degenerative changes in the medial compartment with obliteration of the joint space. Advanced degenerative changes in the lateral and patellofemoral compartments with joint space narrowing and hypertrophic change. LEFT KNEE: Diffuse demineralization. Trace joint effusion. Moderate degenerative changes in the tricompartments with joint space narrowing and hypertrophic change. XR/XR knee RT 4V IMPRESSION: 1. Severe degenerative changes right knee. 2. Moderate degenerative changes left knee.
[2024-06-05 12:18] LABS: FIB-ALT 36 U/L (6-29); FIB-Alpha-2-Macroglobulin 140 mg/dL (106-279); FIB-Apolipoprotein A1 177 mg/dL (101-198); FIB-GGT 233 U/L (3-70); FIB-Haptoglobin 305 mg/dL (43-212); FIB-Total Bilirubin 0.3 mg/dL (0.2-1.2); Liver Fibrosis Score 0.08; Liver Fibrosis Stage F0; Nec Inflam Act Grade A0; Nec Inflam Act Score 0.14
== END 2024-05-28 10:04 | disposition home or self-care (01) ==
LOC: HO.XRAY 10:03
PROVIDERS: Absent Provider Student in an Organized Health Care Education/Training Program; PCP Internal Medicine; Visit Provider Nurse Practitioner Family
DX: M25.561 Pain in right knee (principal); M25.562 Pain in left knee; M25.572 Pain in left ankle and joints of left foot; M25.571 Pain in right ankle and joints of right foot; M79.672 Pain in left foot; M79.671 Pain in right foot; M25.532 Pain in left wrist; M25.531 Pain in right wrist; M25.512 Pain in left shoulder; M25.511 Pain in right shoulder; M79.642 Pain in left hand; M79.641 Pain in right hand; R10.84 Generalized abdominal pain; R79.89 Other specified abnormal findings of blood chemistry; K21.9 Gastro-esophageal reflux disease without esophagitis; K59.04 Chronic idiopathic constipation; K59.1 Functional diarrhea; R10.13 Epigastric pain
CPT/HCPCS: 36415; 73030; 73110; 73130; 73564; 73610; 73630; 81596; 99212

== ENCOUNTER 2024-05-28 10:03 | Outpatient (AMB) | payer OTHER, SELFPAY ==
[2024-05-28 10:13] VITALS: BP 122/72; PULSE 69; BMI 36.6
--- NOTE | 2024-05-28 10:13 | MHC.OFFVIS ---
Vital Signs 05/28/24 10:13 Height 5 ft 2 in Weight 200 lb BMI 36.6 BP 122/72 Blood Pressure Location Lt brachial Position Sitting Pulse 69 Intake Visit Reasons: Nausea/vomiting / abd pain Intake Note: This patient presents for nausea, vomiting and abdominal pain. Patient c/o; reports has been having n/v and abdominal pain, reports orange stools, reports she had went to the ER several times and they popped a hernia back in . 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 Patient also admits to eating late at night. Discussed with patient avoiding dietary triggers. Eat smaller meals. Will rule out H pylori. GERD (gastroesophageal reflux disease) Discussed with patient avoiding dietary triggers and late night snacking. Staying upright for minimal 3 hours after meals discussed with patient. Will do H pylori breath test in the office today. Will treat if positive. Patient can start omeprazole 20 mg half an hour before breakfast and famotidine 20 mg at bedtime. Chronic idiopathic constipation Continue current treatment with docusate sodium and Citrucel. Increase fiber intake, drink plenty fluids. I will see patient in 6 weeks, sooner on as needed basis. Patient is agreeable to this plan and verbalizes understanding of instructions. She was given the opportunity to ask questions all questions answered. ? Thank you for allowing me to participate in her care Plan Orders Orders H Pylori Breath Test Today Medications New famotidine (Pepcid) 20 mg PO BEDTIME 30 tabs 3RF K21.9 omeprazole 20 mg PO DAILY 90 caps 2RF K21.9 TODAY'S VISIT Patient is here today for requested visit. Patient has been seen in the ER few times for abdominal pain and diarrhea. Patient reports that she has been dealing with diarrhea on and off for the past couple of months. GI panel and C diff negative in March. Patient reports elevation in her liver enzymes, started taking milk thistle and her enzymes came back normal. Patient had ultrasound done that showed increased echogenicity most likely fatty infiltration. Patient reports occasional nausea and epigastric pain postprandially. Denies any vomiting. Denies any melena, hematochezia. Patient had colonoscopy in June of 2021 and due to suboptimal prep she should return in 3 years which will be this year. [facility] Medical History Psoriasis Hyperglycemia Annual physical exam GI (gastrointestinal bleed) Diverticulitis Abdominal pain Vitamin B12 deficiency Osteoarthritis of right knee Fibromyalgia Lumbar degenerative disc disease Cervical radiculopathy Depression Vitamin D deficiency HTN (hypertension) Hyperlipidemia Surgical History Hx of colonoscopy H/O Spinal surgery Family History Mother Lupus (systemic lupus erythematosus) Rheumatoid arthritis Social History Housing: House Alcohol intake: current Alcohol intake frequency: does not drink Patient Tobacco Use Status: Former Tobacco user e-Cigarette/Vaping Use: Currently Using Second Hand Smoke Exposure: No service: No Current occupational status: disabled Cognitive needs: No Hearing needs: No Vision needs: No Review of Systems Const Denies weight gain and Denies weight loss ENT Reports no additional complaints, Denies dysphagia and Denies odynophagia Card Reports no additional complaints Resp Reports no additional complaints GI Reports abdominal pain (Epigastric), Denies belching, Denies melena, Reports bloating, Denies change in bowel habits, Denies dysphagia, Denies excessive flatus, Denies dyspepsia, Reports heartburn, Denies diarrhea, Reports loose stools, Denies nausea, Denies odynophagia and Denies vomiting Reports no additional complaints Musc Reports no additional complaints Neuro Reports no additional complaints Psych Reports no additional complaints Endo Reports no additional complaints Physical Exam Vital Signs: Last Vital Signs Pulse 69 05/28/24 10:13 BP 122/72 05/28/24 10:13 BMI result Body Mass Index 36.6 Const Other: Patient sitting in the wheelchair accompanied by a friend General: healthy appearing, no acute distress and well developed Nutritional Appearance: overweight Orientation/consciousness: patient oriented x3 Limitations: ambulation with cane Eyes General: appearance normal, both eyes and all related structures Neck Neck: Yes normal visual inspection, Yes full ROM and Yes trachea midline Thyroid: Thyroid normal Resp Effort & Inspection: normal respiratory effort, able to speak in complete sentences, no tracheal deviation and symmetric chest movement Auscultation: clear to auscultation bilaterally Cardio Rate: regular rate GI Inspection: Yes normal to inspection, No distended and Yes obesity Palpation (GI): Soft to palpation, not firm, nontender and No hepatosplenomegaly present Auscultation: normal bowel sounds General: Yes no CVA tenderness Back/Spine/Pelvis Back: no CVA tenderness Skin General skin exam: elasticity normal, turgor normal and dry skin Neuro General: patient oriented x3 Psych Appearance: grossly normal Mental Status: mental status grossly normal Assessment & Plan Assessment & Plan (1) Elevated LFTs: Code(s): R79.89 - Other specified abnormal findings of blood chemistry Category: Medical (2) Abdominal pain: Code(s): R10.9 - Unspecified abdominal pain Category: Medical Qualifiers: Abdominal location: generalized Qualified Code(s): R10.84 - Generalized abdominal pain (3) GERD (gastroesophageal reflux disease): Code(s): K21.9 - Gastro-esophageal reflux disease without esophagitis Qualifiers: Esophagitis presence: esophagitis presence not specified Qualified Code(s): K21.9 - Gastro-esophageal reflux disease without esophagitis (4) Chronic idiopathic constipation: Code(s): K59.04 - Chronic idiopathic constipation (5) Diarrhea: Code(s): R19.7 - Diarrhea, unspecified Qualifiers: Diarrhea type: functional diarrhea Qualified Code(s): K59.1 - Functional diarrhea (6) Postprandial epigastric pain: Code(s): R10.13 - Epigastric pain Plan Liver fibrosis panel, will repeat ultrasound with liver elastography. Recent rise in LFTs. Patient will start taking Nexium every morning half an hour before breakfast. Will start taking fiber 1-2 tablets daily. Patient will take senna in the evening to help her eliminate her bowels. She will return in 2 months to discuss going for colonoscopy and possible endoscopy. Patient will return to the office sooner if she will have any GI concerning symptoms. Patient is agreeable to this plan and verbalizes understanding of instructions. She was given the opportunity to ask questions and all questions answered. Thank you for allowing me to participate in her care Orders: Orders Liver Fibrosis Pnl Today R74.8 - Abnormal levels of other serum enzymes US abdomen villalobos w elastography Today R74.01 - Elevation of levels of liver transaminase levels Medications: New esomeprazole magnesium (Nexium) 40 mg PO DAILY 30 caps 5RF K21.9 - Gastro-esophageal reflux disease without esophagitis methylcellulose (laxative) (Citrucel) take it with full glass of water 500 mg PO DAILY 30 tabs 2RF K59.00 - Constipation, unspecified sennosides (Natural Senna Laxative) 17.2 mg (2 x 8.6 mg) PO BEDTIME 60 tabs 3RF constipation K59.00 - Constipation, unspecified Coding Level of Care Code Est Pt Level 4 (55543) Diagnoses Elevated LFTs R79.89 Generalized abdominal pain R10.84 Abdominal location: generalized Gastroesophageal reflux disease, unspecified whether esophagitis present K21.9 Esophagitis presence: esophagitis presence not specified Chronic idiopathic constipation K59.04 Functional diarrhea K59.1 Diarrhea type: functional diarrhea Postprandial epigastric pain R10.13 Time Spent (min) 35 Comment 20 minutes spent with patient and additional 15 minutes spent reviewing her records
== END 2024-05-28 10:55 | disposition home or self-care (01) ==
PROVIDERS: PCP Internal Medicine; Visit Provider Nurse Practitioner Family
DX: R79.89 Other specified abnormal findings of blood chemistry (principal); R10.84 Generalized abdominal pain; K21.9 Gastro-esophageal reflux disease without esophagitis; K59.04 Chronic idiopathic constipation; K59.1 Functional diarrhea; R10.13 Epigastric pain
CPT/HCPCS: 99214

== ENCOUNTER 2024-06-09 11:26 | Outpatient (REF) | payer OTHER, SELFPAY ==
--- NOTE | ~2024-06-09 | US_ITS ---
EXAMINATION: US ABDOMEN LIMITED WITH LIVER ELASTOGRAPHY CLINICAL INFORMATION: Elevated liver transaminase. COMPARISON: Ultrasound abdomen 05/05/2023. TECHNIQUE: Real-time imaging of the abdominal viscera. Noninvasive ultrasound liver fibrosis assessment is performed using Efren ElastPQ point quantification shear wave elastography (pSWE) with a 5 MHz transducer. Multiple elastography samples are obtained. FINDINGS: PANCREAS: The visualized pancreatic head and body are normal in appearance. The remainder of the pancreas is obscured from visualization by the overlying bowel gas. LIVER: The liver is enlarged and echogenic consistent with hepatic steatosis. No focal lesion or intrahepatic biliary duct dilatation. The right lobe measures 18.3 cm in length. The left lobe measures 10.4 cm in length. Shear wave elastography provides a median stiffness of 1.9 m/s (reference: normal median stiffness is 0.81 - 1.22 m/s). On the prior study, this value was 1.5 m/s. The IQR/median stiffness to assess sampling precision is 0.05 (reference: optimal IQR/median stiffness is under 0.3). GALLBLADDER: Status post cholecystectomy. COMMON BILE DUCT: Normal in caliber measuring 0.7 cm in diameter. RIGHT KIDNEY: Normal. No hydronephrosis. No renal calculi or focal parenchymal lesions. The kidney 10.0 cm in maximum dimension. FREE FLUID: None. US/US abdomen villalobos w elastography IMPRESSION: 1. Enlarged fatty liver. 2. Elastography: Liver elastography measurements are consistent with a moderate risk for clinically significant liver fibrosis (METAVIR Stage F2-F3). Electronically signed by: Tariq Meadows MD 07/01/2024 09:57 PM EDT
== END 2024-06-09 11:27 | disposition home or self-care (01) ==
LOC: HO.US 11:26
PROVIDERS: PCP Internal Medicine; Visit Provider Nurse Practitioner Family
DX: R74.01 Elevation of levels of liver transaminase levels (principal)
CPT/HCPCS: 76705; 76981

== ENCOUNTER 2024-07-28 15:48 | Outpatient (AMB) | payer OTHER, SELFPAY ==
[2024-07-28 15:58] VITALS: BP 130/70; PULSE 74; O2SAT 94; BMI 36.6
--- NOTE | 2024-07-28 15:58 | A.OFFVIS_ITS ---
Vital Signs 07/28/24 15:58 Height 5 ft 2 in Weight 200 lb BMI 36.6 BP 130/70 Blood Pressure Location Lt brachial Position Sitting Pulse 74 Pulse Source Pulse Oximeter Pulse Oximetry (%) 94 Oxygen Delivery Method Room Air Intake Visit Reasons: polyarthragia Intake Note: Patient last seen by Doctor Kelle Hernandez on 02/17/24. Presents today for Polyarthralgia follow up and labs/XR's test results. Allergies procaine [From NOVOCAIN] Allergy (Severe, Verified 07/28/24 16:00) ANAPHYLAXIS methadone [METHADONE] Allergy (Intermediate, Verified 07/28/24 16:00) FLUID BUILD UP AROUND HEART ciprofloxacin [CIPROFLOXACIN] Adverse Reaction (Intermediate, Verified 07/28/24 16:00) REACTION WITH MUSCLE RELAXERS clindamycin [CLINDAMYCIN] Adverse Reaction (Intermediate, Verified 07/28/24 16:00) PALPITATIONS Medication List - Last Reconciled 07/28/24 by Kelle Hernandez MD amlodipine 10 mg PO DAILY [barrier cream As directed] [cleansing wipes As directed] cyanocobalamin (vitamin B-12) 1,000 mcg PO DAILY docusate sodium 100 mg PO BEDTIME esomeprazole magnesium (Nexium) 40 mg PO DAILY famotidine 20 mg PO BEDTIME hydroxyzine HCl 25 mg PO ONCE incontinence pad, liner, disp (Poise Pads) As directed incontinence pad, liner, disp As directed-medium absorbancy lisinopril 30 mg PO DAILY loperamide (Imodium A-D) 2 mg PO Q6H PRN lorazepam 0.5 mg PO TID PRN methylcellulose (laxative) (Citrucel) 500 mg PO DAILY metoclopramide HCl (Reglan) 10 mg PO Q6H PRN ondansetron 4 mg PO Q6-8H PRN ondansetron 8 mg PO Q8H prednisone Take 4 tabs by mouth daily for 1 week, 3 tabs daily for 1 week, 2 tabs daily for 1 week, 1 tab daily for 1 week then stop pregabalin 75 mg PO TID quetiapine 0 mg PO ropinirole 0.25 mg PO .QID sennosides (Natural Senna Laxative) 17.2 mg (2 x 8.6 mg) PO BEDTIME tizanidine 4 mg PO BID trazodone 100 mg PO BEDTIME PRN [Washable bed pad As directed] zolpidem 5 mg PO BEDTIME PRN HPI Comments Details: Patient returns for follow-up after completion of her diagnostic workup. She states that she took prednisone as prescribed and in the 1st 2 weeks she had significant improvement. She was able to raise both shoulders above her head. Lower doses were not as useful. Initial history: This is a 58-year-old female who presents for evaluation of joint pain. Patient stated that she was in an accident around 1999, injured her neck, she had neck surgery then had another neck surgery a few years later. She was briefly a wheelchair. Afterwards she was able to walk. She stated that she was on chronic pain medications until a few years back when her pain medications were withdrawn. She stated that her pains became so severe that she to go back on the wheelchair a few years ago. 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 She states that been having pain and swelling in her hands, ankles, feet. Usually worse at the end of the day. She has constant neck pain as well as right shoulder pain. She states that she has history of psoriasis diagnosed decades ago. She denies any history of DVT/PE. She states that her mother had SLE and rheumatoid arthritis. Patient had 2 pregnancies, 2 children with no abortions or miscarriages. [facility] Medical History Psoriasis Hyperglycemia Annual physical exam GI (gastrointestinal bleed) Diverticulitis Abdominal pain Vitamin B12 deficiency Osteoarthritis of right knee Fibromyalgia Lumbar degenerative disc disease Cervical radiculopathy Depression Vitamin D deficiency HTN (hypertension) Hyperlipidemia Surgical History Hx of colonoscopy H/O Spinal surgery Family History Mother Lupus (systemic lupus erythematosus) Rheumatoid arthritis Social History Housing: House Alcohol intake: current Alcohol intake frequency: does not drink Patient Tobacco Use Status: Former Tobacco user e-Cigarette/Vaping Use: Currently Using Second Hand Smoke Exposure: No service: No Current occupational status: disabled Cognitive needs: No Hearing needs: No Vision needs: No Review of Systems Musc Reports arthralgias, Reports joint swelling, Reports limited range of motion and Reports stiffness Physical Exam Vital Signs: Last Vital Signs Pulse 74 07/28/24 15:58 BP 130/70 07/28/24 15:58 Pulse Ox 94 07/28/24 15:58 Oxygen Delivery Method Room Air 07/28/24 15:58 BMI result Body Mass Index 36.6 Const General: cooperative and healthy appearing Nutritional Appearance: obese Orientation/consciousness: patient oriented x3 Limitations: ambulation with walker and wheelchair HEENT Head: Yes normocephalic and Yes atraumatic Resp Effort & Inspection: normal respiratory effort and able to speak in complete sentences Skin Other: Dry flaky patches on both elbows No psoriasis patches behind both ears Neuro General: patient oriented x3 Extrem Other: No swollen joints today Assessment & Plan Assessment & Plan (1) Polyarthralgia: Code(s): M25.50 - Pain in unspecified joint Category: Medical Plan: This is a 58-year-old female who presents for evaluation of polyarthralgia. Positive family history of SLE and rheumatoid arthritis in her mother. Labs showed negative serologies with mildly elevated CRP. Dramatic response to prednisone. Has psoriasis patches on exam. Clinical picture suspicious for seronegative arthritis such as psoriatic arthritis. Methotrexate can not be used due to her known history of fatty liver. I provided patient with Otezla starter pack sample. Discussed risks and benefits of Otezla. Discussed GI upset and possible depression. Advised patient let us know how she feels in the coming 2-3 weeks. If well tolerated and helpful, we will start prior authorization for Otezla Labs before next visit in 2 months Plan I spent 27 minutes reviewing patient's chart, evaluating patient, ordering diagnostic workup, counseling patient and documenting in the chart Orders: Orders C Reactive Protein 2 Months L40.50 - Arthropathic psoriasis, unspecified Erythrocyte Sedimentation Rate 2 Months L40.50 - Arthropathic psoriasis, unspecified Complete Blood Count Auto Diff 2 Months L40.50 - Arthropathic psoriasis, unspecified Comprehensive Met. Panel 2 Months L40.50 - Arthropathic psoriasis, unspecified Coding Level of Care Code Est Pt Level 4 (86482) Diagnoses Polyarthralgia M25.50
== END 2024-07-28 16:31 | disposition home or self-care (01) ==
PROVIDERS: PCP Internal Medicine; Visit Provider Student in an Organized Health Care Education/Training Program
DX: M25.50 Pain in unspecified joint (principal)
CPT/HCPCS: 99214

== ENCOUNTER → 2024-07-28 15:48 | Outpatient (BNVA) | payer OTHER, SELFPAY | PROVIDERS: PCP Internal Medicine; Visit Provider Student in an Organized Health Care Education/Training Program | DX: M79.642 Pain in left hand (principal); M79.641 Pain in right hand; M25.571 Pain in right ankle and joints of right foot; M25.572 Pain in left ankle and joints of left foot; M79.672 Pain in left foot; M79.671 Pain in right foot; M25.511 Pain in right shoulder; M54.2 Cervicalgia; L40.9 Psoriasis, unspecified | CPT/HCPCS: 99212 ==

== ENCOUNTER 2024-08-11 12:18 | Outpatient (AMB) | payer OTHER, SELFPAY ==
[2024-08-11 12:26] VITALS: BP 136/70; PULSE 74; O2SAT 93
--- NOTE | 2024-08-11 12:26 | A.OFFVIS_ITS ---
Vital Signs 08/11/24 12:26 Height 5 ft 2 in BP 136/70 Blood Pressure Location Lt brachial Position Sitting Pulse 74 Pulse Source Pulse Oximeter Pulse Oximetry (%) 93 Oxygen Delivery Method Room Air Comment Pt has not weighed self, expresses no desire to weigh self currently. Intake Visit Reasons: 3 month follow up Intake Note: Relevant Flags or Indicators ? Requires Front End Alignment Specialist? No Marilynn presents in office today for a scheduled 3 mos FUV. CC; Since last visit; labs ordered ? done (fibrosis panel). Rx ordered ? yes (citrucel, nexium, senna). Diagnostics/images ordered ? done (US). Relevant GI Sx as reported per pt? ?Nausea ?Fecal abnormalities oConstipation oDiarrhea -- [place]ift[place] colored stools intermittently. ?Abdominal Pain oUpper, Right quadrant. ?Hx of any recent surgeries? None Pt reports that she has returned to using her other laxative as well as her omeprazole as she has found them more helpful than the new medications. Pt is still taking citrucel OTC as her insurance does not cover it. Front End Alignment Specialist Required: No Accompanied by: Family/Other Allergies procaine [From NOVOCAIN] Allergy (Severe, Verified 08/11/24 12:27) ANAPHYLAXIS methadone [METHADONE] Allergy (Intermediate, Verified 08/11/24 12:27) FLUID BUILD UP AROUND HEART ciprofloxacin [CIPROFLOXACIN] Adverse Reaction (Intermediate, Verified 08/11/24 12:27) REACTION WITH MUSCLE RELAXERS clindamycin [CLINDAMYCIN] Adverse Reaction (Intermediate, Verified 08/11/24 12:27) PALPITATIONS HPI HPI 3 month follow up: Details: LAST VISIT: Elevated LFTs Abdominal pain GERD (gastroesophageal reflux disease) Chronic idiopathic constipation Diarrhea Postprandial epigastric pain Plan Liver fibrosis panel, will repeat ultrasound with liver elastography. Recent rise in LFTs. Patient will start taking Nexium every morning half an hour before breakfast. Will start taking fiber 1-2 tablets daily. Patient will take senna in the evening to help her eliminate her bowels. She will return in 2 months to discuss going for colonoscopy and possible endoscopy. Patient will return to the office sooner if she will have any GI concerning symptoms. Patient is agreeable to this plan and verbalizes understanding of instructions. She was given the opportunity to ask questions and all questions answered. ? Thank you for allowing me to participate in her care Orders Orders Liver Fibrosis Pnl Today R74.8 US abdomen villalboos w elastography Today R74.01 Medications New esomeprazole magnesium (Nexium) 40 mg PO DAILY 30 caps 5RF K21.9 methylcellulose (laxative) (Citrucel) take it with full glass of water 500 mg PO DAILY 30 tabs 2RF K59.00 sennosides (Natural Senna Laxative) 17.2 mg (2 x 8.6 mg) PO BEDTIME 60 tabs 3RF constipation K59.00 TODAY'S VISIT: Patient is here today for follow-up. Patient reports that she continues to have postprandial loose stools. Patient is taking [id number] Citrucel, however she despite taking Citrucel she continues to have loose stools. Postprandial abdominal bloating and acid reflux. Patient states that Nexium was not working and she had to switch back to omeprazole. Patient recently diagnosed with psoriatic arthritis and was started on Otezla and reports to be doing better. Initially patient was started on prednisone for while and states that while she was taking it she felt great. Patient reports that her pain is better controlled now, however she continues to have epigastric discomfort postprandially occasional nausea specially in the morning. Patient denies any vomiting. Patient reports occasional dyspepsia without dysphagia or odynophagia. Patient denies any melena, hematochezia. Postprandial abdominal bloating frequent depending on what she eats. Lab results and ultrasound results discussed with patient. Liver fibrosis panel was done and her score is F0, however Metavir score done on ultrasound might be to exaggerated. [facility] Medical History Psoriasis Hyperglycemia Annual physical exam GI (gastrointestinal bleed) Diverticulitis Abdominal pain Vitamin B12 deficiency Osteoarthritis of right knee Fibromyalgia Lumbar degenerative disc disease Cervical radiculopathy Depression Vitamin D deficiency HTN (hypertension) Hyperlipidemia Surgical History Hx of colonoscopy H/O Spinal surgery Family History Mother Lupus (systemic lupus erythematosus) Rheumatoid arthritis Social History Housing: House Alcohol intake: current Alcohol intake frequency: does not drink Patient Tobacco Use Status: Former Tobacco user e-Cigarette/Vaping Use: Currently Using Second Hand Smoke Exposure: No service: No Current occupational status: disabled Cognitive needs: No Hearing needs: No Vision needs: No Review of Systems Const Denies weight gain and Denies weight loss ENT Reports no additional complaints, Denies dysphagia and Denies odynophagia Card Reports no additional complaints Resp Reports no additional complaints GI Denies abdominal pain, Denies belching, Denies melena, Reports bloating, Denies change in bowel habits, Reports constipation, Denies dysphagia, Denies excessive flatus, Denies dyspepsia, Reports heartburn, Denies diarrhea, Reports loose stools, Reports nausea, Denies odynophagia and Denies vomiting Reports no additional complaints Musc Reports no additional complaints Neuro Reports no additional complaints Psych Reports no additional complaints Endo Reports no additional complaints Physical Exam Vital Signs: Last Vital Signs Pulse 74 08/11/24 12:26 BP 136/70 08/11/24 12:26 Pulse Ox 93 08/11/24 12:26 Oxygen Delivery Method Room Air 08/11/24 12:26 Const Other: Patient sitting in the wheelchair accompanied by a friend General: healthy appearing, no acute distress and well developed Nutritional Appearance: overweight Orientation/consciousness: patient oriented x3 Limitations: ambulation with cane Resp Effort & Inspection: normal respiratory effort, able to speak in complete sentences, no tracheal deviation and symmetric chest movement Auscultation: clear to auscultation bilaterally Cardio Rate: regular rate GI Inspection: Yes normal to inspection, No distended and Yes obesity Palpation (GI): Soft to palpation, not firm, nontender and No hepatosplenomegaly present Auscultation: normal bowel sounds General: Yes no CVA tenderness Back/Spine/Pelvis Back: no CVA tenderness Skin General skin exam: elasticity normal, turgor normal and dry skin Neuro General: patient oriented x3 Psych Appearance: grossly normal Mental Status: mental status grossly normal Results Reviewed Results Reviewed: Laboratory Tests 03/29/24 05/28/24 16:14 11:16 AST 12 ALT 18 Alkaline Phosphatase 101 Liver GGT 233 H Liver Total Bilirubin 0.3 Liver Apolipoprotein A1 177 Liver Fibrosis ALT 36 H Liver [id number] 140 Liver Fibrosis Stage F0 ABDOMINAL ULTRASOUND WITH LIVER ELASTOGRAPHY FINDINGS: PANCREAS: The visualized pancreatic head and body are normal in appearance. The remainder of the pancreas is obscured from visualization by the overlying bowel gas. LIVER: The liver is enlarged and echogenic consistent with hepatic steatosis. No focal lesion or intrahepatic biliary duct dilatation. The right lobe measures 18.3 cm in length. The left lobe measures 10.4 cm in length. Shear wave elastography provides a median stiffness of 1.9 m/s (reference: normal median stiffness is 0.81 - 1.22 m/s). On the prior study, this value was 1.5 m/s. The IQR/median stiffness to assess sampling precision is 0.05 (reference: optimal IQR/median stiffness is under 0.3). GALLBLADDER: Status post cholecystectomy. COMMON BILE DUCT: Normal in caliber measuring 0.7 cm in diameter. RIGHT KIDNEY: Normal. No hydronephrosis. No renal calculi or focal parenchymal lesions. The kidney 10.0 cm in maximum dimension. FREE FLUID: None. US/US abdomen villalobos w elastography IMPRESSION: 1. Enlarged fatty liver. 2. Elastography: Liver elastography measurements are consistent with a moderate risk for clinically significant liver fibrosis (METAVIR Stage F2-F3). Assessment & Plan Assessment & Plan (1) Elevated LFTs: Code(s): R79.89 - Other specified abnormal findings of blood chemistry Category: Medical (2) Abdominal pain: Code(s): R10.9 - Unspecified abdominal pain Category: Medical Qualifiers: Abdominal location: generalized Qualified Code(s): R10.84 - Generalized abdominal pain (3) GERD (gastroesophageal reflux disease): Code(s): K21.9 - Gastro-esophageal reflux disease without esophagitis Qualifiers: Esophagitis presence: esophagitis presence not specified Qualified Code(s): K21.9 - Gastro-esophageal reflux disease without esophagitis (4) Chronic idiopathic constipation: Code(s): K59.04 - Chronic idiopathic constipation (5) Diarrhea: Code(s): R19.7 - Diarrhea, unspecified Qualifiers: Diarrhea type: functional diarrhea Qualified Code(s): K59.1 - Functional diarrhea (6) Postprandial epigastric pain: Code(s): R10.13 - Epigastric pain (7) Postprandial abdominal bloating: Code(s): R14.0 - Abdominal distension (gaseous) (8) Non-alcoholic fatty liver disease: Code(s): K76.0 - Fatty (change of) liver, not elsewhere classified Plan Patient continues to have postprandial diarrhea. Discussed with her low FODMAP diet and list of food recommended as well as list of food to avoid given to patient. Continue fiber, may increase if she will continue to have diarrhea. Diagnosed with psoriatic arthritis there is a possibility of her having IBD will send her for fecal calprotectin. Patient reports occasional shortness of breath palpitations and presyncopal episode, Cardiology referral sent. Patient will report in the office in 2-3 months, sooner on as needed basis. She is agreeable to this plan and verbalizes understanding of instructions. She was given the opportunity to ask questions and all questions answered. Thank you for allowing me to participate in her care Orders: Orders Calprotectin, Fecal 08/11/24 R15.9 - Full incontinence of feces Referrals Cardiology Referral R55 - Syncope and collapse, R06.02 - Shortness of breath, R00.2 - Palpitations Medications: Discontinued metoclopramide HCl Discontinued Reason: Patient no longer taking 10 mg PO Q6H PRN 20 tabs 0RF nausea and vomiting K29.00 - Acute gastritis without bleeding, R11.2 - Nausea with vomiting, unspecified, R19.7 - Diarrhea, unspecified Coding Level of Care Code Est Pt Level 4 (27534) Diagnoses Elevated LFTs R79.89 Generalized abdominal pain R10.84 Abdominal location: generalized Gastroesophageal reflux disease, unspecified whether esophagitis present K21.9 Esophagitis presence: esophagitis presence not specified Chronic idiopathic constipation K59.04 Functional diarrhea K59.1 Diarrhea type: functional diarrhea Postprandial epigastric pain R10.13 Postprandial abdominal bloating R14.0 Non-alcoholic fatty liver disease K76.0 Time Spent (min) 35 Comment 20 minutes spent with patient and additional 15 minutes spent reviewing her records
== END 2024-08-11 13:09 | disposition home or self-care (01) ==
PROVIDERS: PCP Internal Medicine; Visit Provider Nurse Practitioner Family
DX: R79.89 Other specified abnormal findings of blood chemistry (principal); R10.84 Generalized abdominal pain; K21.9 Gastro-esophageal reflux disease without esophagitis; K59.04 Chronic idiopathic constipation; K59.1 Functional diarrhea; R10.13 Epigastric pain; R14.0 Abdominal distension (gaseous); K76.0 Fatty (change of) liver, not elsewhere classified
CPT/HCPCS: 99214

== ENCOUNTER → 2024-08-11 12:18 | Outpatient (BNVA) | payer OTHER, SELFPAY | PROVIDERS: PCP Internal Medicine; Visit Provider Nurse Practitioner Family | DX: K21.9 Gastro-esophageal reflux disease without esophagitis (principal); K59.04 Chronic idiopathic constipation; K59.1 Functional diarrhea; K76.0 Fatty (change of) liver, not elsewhere classified; R79.89 Other specified abnormal findings of blood chemistry; R10.84 Generalized abdominal pain; R10.13 Epigastric pain; R14.0 Abdominal distension (gaseous) | CPT/HCPCS: 99212 ==

== ENCOUNTER 2024-09-28 11:58 | Outpatient (REF) | payer OTHER, SELFPAY ==
[2024-09-28 14:08] LABS: MANUAL DIFF FLAG NO
[2024-09-28 14:11] LABS: Basophils Absolute Auto 0.1 X10*3/uL (0.0-0.2); Basophils Percent Auto 1.2 % (0-2); Eosinophils Absolute Auto 0.3 X10*3/uL (0.0-0.4); Eosinophils Percent Auto 4.4 % (0-4); Hematocrit 41.3 % (37.0-47.0); Hemoglobin 13.7 g/dl (12.0-16.0); Imm Gran Abs Auto 0.02 X10*3/uL (0.00-0.03); Imm Gran Pct Auto 0.3 % (0.0-0.4); Lymphocytes Percent Auto 31.2 % (20-40); Mean Corpuscular HGB Conc 33.2 g/dl (31.0-35.0); Mean Corpuscular Hemoglobin 29.3 pg (27.0-33.0); Mean Corpuscular Volume 88.2 fL (80.0-98.0); Mean Platelet Volume 11.7 fL (9.4-12.3); Monocytes Absolute Auto 0.4 X10*3/uL (0.1-1.2); Monocytes Percent Auto 6.4 % (2-11); Neutrophils Absolute Auto 3.7 x10*3/uL (2.0-8.3); Neutrophils Percent Auto 56.5 % (45-73); Platelet Count 336 X10*3/uL (160-400); Red Blood Count 4.68 X10*6/uL (4.20-5.50); Red Cell Distribution Width 13.2 % (11.0-16.0); White Blood Count 6.5 X10*3/uL (4.8-10.8)
[2024-09-28 14:54] LABS: Alanine Aminotransferase 24 U/L (0-31); Alkaline Phosphatase 94 U/L (39-117); Anion Gap 12 (12-20); Aspartate Amino Transferase 16 U/L (5-31); Bilirubin Total 0.3 mg/dL (0.0-1.0); Blood Urea Nitrogen 18 mg/dL (9-16); C Reactive Protein 0.97 mg/dL (< or = 0.50); Calcium 9.3 mg/dL (8.4-10.2); Carbon Dioxide 27 mmol/L (22-29); Chloride 108 mmol/L (96-108); Estimated Glomerular Filt Rate 60; Glucose Random 88 mg/dL (60-115); Potassium 3.7 mmol/L (3.3-5.1); Sodium 143 mmol/L (135-145)
[2024-09-28 15:03] LABS: Erythrocyte Sedimentation Rate 15 MM/HR (0-20)
== END 2024-09-28 11:59 | disposition home or self-care (01) ==
LOC: HO.HMGCLDS 11:58
PROVIDERS: PCP Internal Medicine; Visit Provider Student in an Organized Health Care Education/Training Program
DX: L40.50 Arthropathic psoriasis, unspecified (principal)
CPT/HCPCS: 36415; 80053; 85025; 85652; 86140

== ENCOUNTER 2024-09-29 14:35 | Outpatient (AMB) | payer OTHER, SELFPAY ==
--- NOTE | 2024-09-29 14:44 | A.OFFVIS_ITS ---
Vital Signs 09/29/24 14:47 Height 5 ft 2 in BMI Reason not done Patient refused/unable BP 138/70 Blood Pressure Location Lt brachial Position Sitting Respiration 18 Pulse 72 Pulse Source Pulse Oximeter Pulse Oximetry (%) 95 Oxygen Delivery Method Room Air Intake Visit Reasons: polyarthragia/lm Intake Note: Patient presents for Polyarthragia. Allergies procaine [From NOVOCAIN] Allergy (Severe, Verified 09/29/24 14:46) ANAPHYLAXIS methadone [METHADONE] Allergy (Intermediate, Verified 09/29/24 14:46) FLUID BUILD UP AROUND HEART ciprofloxacin [CIPROFLOXACIN] Adverse Reaction (Intermediate, Verified 09/29/24 14:46) REACTION WITH MUSCLE RELAXERS clindamycin [CLINDAMYCIN] Adverse Reaction (Intermediate, Verified 09/29/24 14:46) PALPITATIONS Medication List - Last Reconciled 09/29/24 by Kelle Hernandez MD amlodipine 10 mg PO DAILY apremilast (Otezla) 30 mg PO BID [barrier cream As directed] [cleansing wipes As directed] cyanocobalamin (vitamin B-12) 1,000 mcg PO DAILY docusate sodium 100 mg PO BEDTIME famotidine 20 mg PO BEDTIME hydroxyzine HCl 25 mg PO ONCE incontinence pad, liner, disp (Poise Pads) As directed incontinence pad, liner, disp As directed-medium absorbancy lisinopril 30 mg PO DAILY loperamide (Imodium A-D) 2 mg PO Q6H PRN lorazepam 0.5 mg PO TID PRN methylcellulose (laxative) (Citrucel) 500 mg PO DAILY ondansetron 4 mg PO Q6-8H PRN pregabalin 75 mg PO TID quetiapine 0 mg PO ropinirole 0.25 mg PO .QID tizanidine 4 mg PO BID trazodone 100 mg PO BEDTIME PRN [Washable bed pad As directed] zolpidem 5 mg PO BEDTIME PRN HPI Comments Details: 59-year-old female with newly diagnosed psoriatic arthritis returns for follow- up. She took Otezla has prescribed for approximately 1 month. Could not tolerate it due to worsening joint pains. She has been having diffuse pain, she gets swelling in her hands, wrists, knees, feet. Initial history: This is a 58-year-old female who presents for evaluation of joint pain. Patient stated that she was in an accident around 1999, injured her neck, she had neck surgery then had another neck surgery a few years later. She was briefly a wheelchair. Afterwards she was able to walk. She stated that she was on chronic pain medications until a few years back when her pain medications were withdrawn. She stated that her pains became so severe that she to go back on the wheelchair a few years ago. 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 She states that been having pain and swelling in her hands, ankles, feet. Usually worse at the end of the day. She has constant neck pain as well as right shoulder pain. She states that she has history of psoriasis diagnosed decades ago. She denies any history of DVT/PE. She states that her mother had SLE and rheumatoid arthritis. Patient had 2 pregnancies, 2 children with no abortions or miscarriages. [facility] Medical History Psoriasis Hyperglycemia Annual physical exam GI (gastrointestinal bleed) Diverticulitis Abdominal pain Vitamin B12 deficiency Osteoarthritis of right knee Fibromyalgia Lumbar degenerative disc disease Cervical radiculopathy Depression Vitamin D deficiency HTN (hypertension) Hyperlipidemia Surgical History Hx of colonoscopy H/O Spinal surgery Family History Mother Lupus (systemic lupus erythematosus) Rheumatoid arthritis Social History Housing: House Alcohol intake: current Alcohol intake frequency: does not drink Patient Tobacco Use Status: Former Tobacco user e-Cigarette/Vaping Use: Currently Using Second Hand Smoke Exposure: No service: No Current occupational status: disabled Cognitive needs: No Hearing needs: No Vision needs: No Review of Systems Musc Reports arthralgias, Reports joint swelling, Reports limited range of motion and Reports stiffness Physical Exam Vital Signs: Last Vital Signs Pulse 72 09/29/24 14:47 Resp 18 09/29/24 14:47 BP 138/70 09/29/24 14:47 Pulse Ox 95 09/29/24 14:47 Oxygen Delivery Method Room Air 09/29/24 14:47 Const General: cooperative and healthy appearing Nutritional Appearance: obese Orientation/consciousness: patient oriented x3 Limitations: ambulation with walker and wheelchair HEENT Head: Yes normocephalic and Yes atraumatic Resp Effort & Inspection: normal respiratory effort and able to speak in complete sentences Skin Other: Dry flaky patches on right elbow No psoriasis patches noted otherwise Neuro General: patient oriented x3 Extrem Other: Mild puffiness of fingers Bilateral wrist tenderness and pain with flexion-extension Multiple tender MCPs, PIP is and DIP is both hands Right shoulder pain with abduction Mild bilateral ankle tenderness Multiple tender MTPs bilaterally Assessment & Plan Assessment & Plan (1) Psoriatic arthritis: Comment: Otezla 07/2024 DC 08/2024 caused worsening joint pain, not effective Code(s): L40.50 - Arthropathic psoriasis, unspecified Category: Medical Plan: This is a 59-year-old female who presents for evaluation of polyarthralgia. There is history of an autoimmune rheumatic disease in her mother, patient is n ot sure, possible SLE or psoriatic arthritis. Prednisone was dramatically helpful. Otezla was not helpful, caused worsening joint pain. We will need to switch DMARDs. Discussed risks and benefits of TNF inhibitors. Patient agreed to proceed. Will start prior authorization for Humira. Discussed Humira bio similar is Labs before next visit in 3 months (2) Generalized osteoarthritis: Code(s): M15.9 - Polyosteoarthritis, unspecified Category: Medical Plan: Patient also has generalized osteoarthritis related to her multiple injuries and neuropathic pain as well as fibromyalgia. We will see how she does with TNF inhibitors. If there is no improvement, then treatment should be aimed towards her generalized osteoarthritis, fibromyalgia (3) High risk medication use: Code(s): Z79.899 - Other public health administrator (current) drug therapy Category: Medical Plan: Side effects of Humira were discussed with the patient in detail including increased risk of infection, demyelinating disease, reactivation of latent TB, possible increased risk of solid and skin tumors. Patient fully aware. Advised patient to seek medical care RICKI if patient has an infection and advised patient to stop the medication until the infection is resolved. Plan I spent 27 minutes reviewing patient's chart, evaluating patient, ordering diagnostic workup, counseling patient and documenting in the chart Coding Level of Care Code Est Pt Level 4 (88169) Complex EM visit Add On G2211 Diagnoses Psoriatic arthritis L40.50 Generalized osteoarthritis M15.9 High risk medication use Z79.272
[2024-09-29 14:47] VITALS: BP 138/70; PULSE 72; RESP 18; O2SAT 95
== END 2024-09-29 15:23 | disposition home or self-care (01) ==
PROVIDERS: PCP Internal Medicine; Visit Provider Student in an Organized Health Care Education/Training Program
DX: L40.50 Arthropathic psoriasis, unspecified (principal); M15.9 Polyosteoarthritis, unspecified; Z79.899 Other long term (current) drug therapy
CPT/HCPCS: 99214; G2211

== ENCOUNTER → 2024-09-29 14:35 | Outpatient (BNVA) | payer OTHER, SELFPAY | PROVIDERS: PCP Internal Medicine; Visit Provider Student in an Organized Health Care Education/Training Program | DX: L40.50 Arthropathic psoriasis, unspecified (principal); M15.9 Polyosteoarthritis, unspecified; Z79.899 Other long term (current) drug therapy | CPT/HCPCS: 99212 ==

== ENCOUNTER 2024-11-04 15:17 | Outpatient (REF) | payer OTHER, SELFPAY ==
[2024-11-11 19:22] LABS: Calprotectin, Fecal 172 mcg/g
== END 2024-11-04 15:18 | disposition home or self-care (01) ==
LOC: HO.CHCLNP 15:17
PROVIDERS: Visit Provider Nurse Practitioner Family
DX: R15.9 Full incontinence of feces (principal)
CPT/HCPCS: 83993

== ENCOUNTER 2024-11-10 11:31 | Outpatient (AMB) | payer OTHER, SELFPAY ==
[2024-11-10 11:33] VITALS: BP 136/80; PULSE 60; O2SAT 94
--- NOTE | 2024-11-10 11:33 | A.OFFVIS_ITS ---
Vital Signs 11/10/24 11:33 Height 5 ft 2 in BP 136/80 Blood Pressure Location Lt radial Position Sitting Pulse 60 Pulse Source Pulse Oximeter Pulse Oximetry (%) 94 Oxygen Delivery Method Room Air Comment Pt denies any recent weight Intake Visit Reasons: 3 month follow up Intake Note: ESTABLISHED PATIENT Reason; 3 mos FUV. Advised pt to have labs done prior to appt. Labs done per pt. Changes/concerns? No significant GI concerns. Allergies procaine [From NOVOCAIN] Allergy (Severe, Verified 11/10/24 11:33) ANAPHYLAXIS methadone [METHADONE] Allergy (Intermediate, Verified 11/10/24 11:33) FLUID BUILD UP AROUND HEART ciprofloxacin [CIPROFLOXACIN] Adverse Reaction (Intermediate, Verified 11/10/24 11:33) REACTION WITH MUSCLE RELAXERS clindamycin [CLINDAMYCIN] Adverse Reaction (Intermediate, Verified 11/10/24 11:33) PALPITATIONS HPI HPI 3 month follow up: Details: Elevated LFTs Abdominal pain GERD (gastroesophageal reflux disease) Chronic idiopathic constipation Diarrhea Postprandial epigastric pain Postprandial abdominal bloating Non-alcoholic fatty liver disease Plan Patient continues to have postprandial diarrhea. Discussed with her low FODMAP diet and list of food recommended as well as list of food to avoid given to patient. Continue fiber, may increase if she will continue to have diarrhea. Diagnosed with psoriatic arthritis there is a possibility of her having IBD will send her for fecal calprotectin. Patient reports occasional shortness of breath palpitations and presyncopal episode, Cardiology referral sent. Patient will report in the office in 2-3 months, sooner on as needed basis. She is agreeable to this plan and verbalizes understanding of instructions. She was given the opportunity to ask questions and all questions answered. ? Thank you for allowing me to participate in her care Orders Orders Calprotectin, Fecal 08/11/24 R15.9 Referrals Cardiology Referral R55, R06.02, R00.2 Medications Discontinued metoclopramide HCl Discontinued Reason: Patient no longer taking 10 mg PO Q6H PRN 20 tabs 0RF nausea and vomiting K29.00, R11.2, R19.7 TODAY'S VISIT Patient is here today for follow-up. Patient reports that she has been feeling better. Able to move her bowels. Using Colace daily. Patient denies melena, hematochezia, unintentional weight loss or ribbon like stools. Symptoms of acid reflux are suppressed with Nexium and famotidine. Patient denies dyspepsia, dysphagia or odynophagia. Patient states that she started taking digestive enzymes and feels less bloated. Awaiting for insurance approval for Humira for psoriatic arthritis. Patient overall is feeling better. Patient reports occasional loose stools after eating something that is greasy. Patient tries to stay away from fatty food. Status post cholecystectomy. Denies any other GI concerning symptoms today. [facility] Medical History Psoriasis Hyperglycemia Annual physical exam GI (gastrointestinal bleed) Diverticulitis Abdominal pain Vitamin B12 deficiency Osteoarthritis of right knee Fibromyalgia Lumbar degenerative disc disease Cervical radiculopathy Depression Vitamin D deficiency HTN (hypertension) Hyperlipidemia Surgical History Hx of colonoscopy H/O Spinal surgery Family History Mother Lupus (systemic lupus erythematosus) Rheumatoid arthritis Social History Housing: House Alcohol intake: current Alcohol intake frequency: does not drink Patient Tobacco Use Status: Former Tobacco user e-Cigarette/Vaping Use: Currently Using Second Hand Smoke Exposure: No service: No Current occupational status: disabled Cognitive needs: No Hearing needs: No Vision needs: No Review of Systems Const Denies weight gain and Denies weight loss ENT Reports no additional complaints, Denies dysphagia and Denies odynophagia Card Reports no additional complaints Resp Reports no additional complaints GI Denies abdominal pain, Denies belching, Denies melena, Denies bloating, Denies change in bowel habits, Reports constipation (Occasional), Denies dysphagia, Denies excessive flatus, Denies dyspepsia, Denies heartburn, Denies diarrhea, Denies loose stools, Denies nausea, Denies odynophagia and Denies vomiting Reports no additional complaints Musc Reports no additional complaints Neuro Reports no additional complaints Psych Reports no additional complaints Endo Reports no additional complaints Physical Exam Vital Signs: Last Vital Signs Pulse 60 11/10/24 11:33 BP 136/80 11/10/24 11:33 Pulse Ox 94 11/10/24 11:33 Oxygen Delivery Method Room Air 11/10/24 11:33 Const Other: Patient sitting in the wheelchair accompanied by a friend General: healthy appearing, no acute distress and well developed Nutritional Appearance: overweight Orientation/consciousness: patient oriented x3 Limitations: ambulation with cane Resp Effort & Inspection: normal respiratory effort, able to speak in complete sentences, no tracheal deviation and symmetric chest movement Auscultation: clear to auscultation bilaterally Cardio Rate: regular rate GI Inspection: Yes normal to inspection, No distended and Yes obesity Palpation (GI): Soft to palpation, not firm, nontender and No hepatosplenomegaly present Auscultation: normal bowel sounds General: Yes no CVA tenderness Back/Spine/Pelvis Back: no CVA tenderness Skin General skin exam: elasticity normal, turgor normal and dry skin Neuro General: patient oriented x3 Psych Appearance: grossly normal Mental Status: mental status grossly normal Assessment & Plan Assessment & Plan (1) Elevated LFTs: Code(s): R79.89 - Other specified abnormal findings of blood chemistry Category: Medical (2) Abdominal pain: Code(s): R10.9 - Unspecified abdominal pain Category: Medical Qualifiers: Abdominal location: generalized Qualified Code(s): R10.84 - Generalized abdominal pain (3) GERD (gastroesophageal reflux disease): Code(s): K21.9 - Gastro-esophageal reflux disease without esophagitis Qualifiers: Esophagitis presence: esophagitis presence not specified Qualified Code(s): K21.9 - Gastro-esophageal reflux disease without esophagitis (4) Chronic idiopathic constipation: Code(s): K59.04 - Chronic idiopathic constipation (5) Diarrhea: Code(s): R19.7 - Diarrhea, unspecified Qualifiers: Diarrhea type: functional diarrhea Qualified Code(s): K59.1 - Functional diarrhea (6) Postprandial epigastric pain: Code(s): R10.13 - Epigastric pain (7) Postprandial abdominal bloating: Code(s): R14.0 - Abdominal distension (gaseous) (8) Non-alcoholic fatty liver disease: Code(s): K76.0 - Fatty (change of) liver, not elsewhere classified Plan High-fiber diet recommended to patient. Continue to avoid dietary triggers and late night snacking. Staying upright for minimum 3 hours after meals discussed with patient. Continue Nexium and Pepcid. Patient is due to go for colonoscopy, however she will need to get worked up by Cardiology with new symptoms of shortness of breath, chest pain and palpitation. Patient has an appointment in December and will follow-up here in January. Patient is agreeable to this plan and verbalizes understanding of instructions. She was given the opportunity to ask questions and all questions answered. Thank you for allowing me to participate in her care Coding Level of Care Code Est Pt Level 4 (51861) Complex EM visit Add On G2211 Diagnoses Elevated LFTs R79.89 Generalized abdominal pain R10.84 Abdominal location: generalized Gastroesophageal reflux disease, unspecified whether esophagitis present K21.9 Esophagitis presence: esophagitis presence not specified Chronic idiopathic constipation K59.04 Functional diarrhea K59.1 Diarrhea type: functional diarrhea Postprandial epigastric pain R10.13 Postprandial abdominal bloating R14.0 Non-alcoholic fatty liver disease K76.0 Time Spent (min) 35 Comment 25 minutes spent with patient and additional 10 minutes spent reviewing her records
== END 2024-11-10 11:59 | disposition home or self-care (01) ==
PROVIDERS: PCP Internal Medicine; Visit Provider Nurse Practitioner Family
DX: R79.89 Other specified abnormal findings of blood chemistry (principal); R10.84 Generalized abdominal pain; K21.9 Gastro-esophageal reflux disease without esophagitis; K59.04 Chronic idiopathic constipation; K59.1 Functional diarrhea; R10.13 Epigastric pain; R14.0 Abdominal distension (gaseous); K76.0 Fatty (change of) liver, not elsewhere classified
CPT/HCPCS: 99214; G2211

== ENCOUNTER → 2024-11-10 11:31 | Outpatient (BNVA) | payer OTHER, SELFPAY | PROVIDERS: PCP Internal Medicine; Visit Provider Nurse Practitioner Family | DX: K21.9 Gastro-esophageal reflux disease without esophagitis (principal); K59.04 Chronic idiopathic constipation; K76.0 Fatty (change of) liver, not elsewhere classified; R79.89 Other specified abnormal findings of blood chemistry; R10.84 Generalized abdominal pain; K59.1 Functional diarrhea; R10.13 Epigastric pain; R14.0 Abdominal distension (gaseous) | CPT/HCPCS: 99212 ==

== ENCOUNTER 2024-12-06 12:42 | Outpatient (AMB) | payer OTHER, SELFPAY ==
[2024-12-06 12:47] VITALS: BP 116/70; PULSE 70; RESP 18; TEMP 36.6; O2SAT 97; BMI 37.5
--- NOTE | 2024-12-06 12:47 | A.OFFPC_ITS ---
Vital Signs 12/06/24 12:47 Height 5 ft 2 in Weight 205 lb BMI 37.5 BP 116/70 Blood Pressure Location Lt brachial Position Sitting Respiration 18 Pulse 70 Pulse Source Pulse Oximeter Temp 97.9 F Temp Source Oral Pulse Oximetry (%) 97 Oxygen Delivery Method Room Air Intake Visit Reasons: med review Intake Note: Pt is here today for a follow up visit. Allergies procaine [From NOVOCAIN] Allergy (Severe, Verified 12/06/24 12:53) ANAPHYLAXIS methadone [METHADONE] Allergy (Intermediate, Verified 12/06/24 12:53) FLUID BUILD UP AROUND HEART ciprofloxacin [CIPROFLOXACIN] Adverse Reaction (Intermediate, Verified 12/06/24 12:53) REACTION WITH MUSCLE RELAXERS clindamycin [CLINDAMYCIN] Adverse Reaction (Intermediate, Verified 12/06/24 12:53) PALPITATIONS Medication List - Last Reconciled 12/06/24 by Faey Delgado MD amlodipine 10 mg PO DAILY [barrier cream As directed] [cleansing wipes As directed] cyanocobalamin (vitamin B-12) 1,000 mcg PO DAILY docusate sodium 100 mg PO BEDTIME esomeprazole magnesium 40 mg PO DAILY famotidine 20 mg PO BEDTIME hydroxyzine HCl 25 mg PO ONCE incontinence pad, liner, disp (Poise Pads) As directed incontinence pad, liner, disp As directed-medium absorbancy lisinopril 30 mg PO DAILY lorazepam 0.5 mg PO TID PRN ondansetron 4 mg PO Q6-8H PRN pregabalin 75 mg PO TID quetiapine 0 mg PO ropinirole 0.25 mg PO .QID tizanidine 4 mg PO BID trazodone 50 mg PO BID [Washable bed pad As directed] zolpidem 5 mg PO BEDTIME PRN Tobacco use date assessed: 12/06/24 Dental Screening Dental Screen Date: 12/06/24 Did you have a dental visit in the last 12 months?: Yes Did you have a dental problem in the last 6 months where you did not have access to dental care?: No Was dental information given to patient?: Patient has dentist HPI med review HPI Details Patient presents for the follow-up. She complains of diffuse bone pains worse in the cold weather. She was prescribed opiates in the past by pain management and is requesting to restart taking narcotic pain medications again. Patient was evaluated by pain management and spinal cord stimulator was recommended but patient declined. Patient is established with a psychiatrist and a therapist and feels hopeless and helpless most days of the week but is refusing to take antidepressants because they only numb your brain Patient is established with neurologist and has been prescribed ropinirole. She is requesting increasing dose of tizanidine to 3 times a day for muscle spasms. Patient has been wheelchair-bound since opiates were discontinued and has been getting progressively weaker but not interested in trying physical therapy. Patient was evaluated by neurosurgeon for cervical and lumbar spinal stenosis and is not a surgical candidate. Hypertension is controlled on current medications. [facility] Medical History (Updated 12/06/24 @ 14:23 by Faye Delgado MD) Psoriasis Hyperglycemia Annual physical exam GI (gastrointestinal bleed) Diverticulitis Abdominal pain Vitamin B12 deficiency Osteoarthritis of right knee Fibromyalgia Lumbar degenerative disc disease Cervical radiculopathy Depression Vitamin D deficiency HTN (hypertension) Hyperlipidemia Surgical History Hx of colonoscopy H/O Spinal surgery Family History Mother Lupus (systemic lupus erythematosus) Rheumatoid arthritis Social History Housing: House Alcohol intake: current Alcohol intake frequency: does not drink Patient Tobacco Use Status: Former Tobacco user e-Cigarette/Vaping Use: Currently Using Second Hand Smoke Exposure: No service: No Current occupational status: disabled Cognitive needs: No Hearing needs: No Vision needs: No Questionnaire PHQ-9 Over the last 2 weeks, how often have you been bothered by any of the following problems? 1. Little interest or pleasure in doing things: nearly every day 2. Feeling down, depressed, or hopeless: more than half the days 3. Trouble falling or staying asleep, or sleeping too much: nearly every day 4. Feeling tired or having little energy: nearly every day 5. Poor appetite or overeating: several days 6. Feeling bad about yourself - or that you are a failure or have let yourself or your family down: nearly every day 7. Trouble concentrating on things, such as reading the newspaper or watching television: nearly every day 8. Moving or speaking so slowly that other people could have noticed. Or the opposite - being so fidgety or restless that you have been moving around a lot more than usual: several days 9. Thoughts that you would be better off or of hurting yourself in some way: nearly every day Total score: 22 Depression Screening Interpretation: Positive (Patient is established with a psychiatrist and therapist but refuses to take antidepressants) Depression Screening Follow-up: Existing condition and In treatment Depression Screening Done: Yes 53065 - PHQ-9 Billing: Yes Source: Developed by Drs. Miles Torres, Ramonita Wilkinson, Robert Stevens and colleagues, with an educational brittney from [employer]. Thrive Questionnaire Date Thrive assessed: 12/06/24 I am a: Patient What is your living situation today?: I have a steady place to live Within the past 12 months, did the food you bought not last and you didn't have the money to get more?: Sometimes True Within the past 12 months, did you worry whether your food would run out before you got money to buy more?: Sometimes True Do you have trouble paying for medicines?: Yes Do you have trouble getting transportation to medical appointments?: No Do you have trouble paying your heating and electricity bill?: Yes Do you have trouble taking care of your child, family member or friend?: No Do you have trouble with day-to-day activities such as bathing, preparing meals, shopping, managing finances, etc.?: Yes Are you currently unemployed and looking for a job?: No Are you interested in more education?: No THRIVE Score: 3 AUDIT C Alcohol Use Questionnaire (AUDIT-C) 1. How often do you have a drink containing alcohol?: Never 3. How often do you have six or more drinks on one occasion?: Never Total Score: 0 HENRRY-7 AMB Questionnaire HENRRY-7 Date HENRRY - 7 assessed: 12/06/24 Feeling nervous, anxious, or on edge: 2 = More than half the days Not being able to stop or control worryin = More than half the days Worrying too much about different things: 2 = More than half the days Trouble relaxin = Nearly every day Being so restless that it is hard to sit still: 3 = Nearly every day Becoming easily annoyed or irritable: 2 = More than half the days Feeling afraid as if something awful might happen: 1 = Several days Total HENRRY-7 score (0-4 normal; 5-9 mild; 10-14 moderate; 15-21 severe): 15 Source: Developed by Drs. Mlies Torres, Ramonita Wilkinson, Robert Stevens and colleagues, with an educational brittney from [employer]. HENRRY-7 Assessment Billing HENRRY-7 Assessment Tool: HENRRY-7 Assessment 60417 Review of Systems Const All systems reviewed & are unremarkable except as noted in HPI and below Eyes Reports no additional complaints ENT Reports no additional complaints Card Reports no additional complaints Resp Reports no additional complaints GI Reports no additional complaints Reports no additional complaints Physical exam (Primary Care) Vital Signs: Last Vital Signs Temp 97.9 F 12/06/24 12:47 Pulse 70 12/06/24 12:47 Resp 18 12/06/24 12:47 BP 116/70 12/06/24 12:47 Pulse Ox 97 12/06/24 12:47 Oxygen Delivery Method Room Air 12/06/24 12:47 BMI result Body Mass Index 37.5 Tobacco/Smoking Status: Tobacco use Status Tobacco use date assessed 12/06/24 12/06/24 12:57 Patient Tobacco Use Status Former Tobacco user 12/06/24 12:57 e-Cigarette/Vaping Use Currently Using 12/06/24 12:57 PHQ-9: PHQ-9 Score PHQ-9: Total score 22 12/06/24 13:56 Depression Screening Interpretation: Positive (Patient is established with a psychiatrist and therapist but refuses to take antidepressants) Depression Screening Follow-up: Existing condition and In treatment Thrive Assessment: Date of Thrive Assessment Date Thrive assessed 12/06/24 12/06/24 13:56 Const General: no acute distress HENMT Face and sinus: Yes normal facial exam Resp Effort & Inspection: normal respiratory effort Auscultation: clear to auscultation bilaterally Cardio Rhythm: regular rhythm Heart sounds: S1 normal heart sound present and S2 normal heart sound present GI Inspection: Yes normal to inspection Palpation (GI): Soft to palpation Percussion: Yes normal to percussion Auscultation: normal bowel sounds Immunizations pneumoc 20-mars conj-dip cr(PF) 0.5 mL IM syringe Performing Provider: Faye Delgado MD Performing Location: [facility] Administered by: CYNDEE Salinas on 12/06/24 13:57 Dose Route Admin Location Dispensed Lot Number Expiration Date [facility] Air Conditioning Engineer 0.5 mL IM Left Deltoid 0.5 mL [id number] 12/06/24 4516-5469-58 WYETH/PFIZER VIS Given Date VIS Provided VIS Publication Date 12/06/24 Single Vaccine 21 Eligibility Eligibility Date Funding Source Not [facility] Eligible 12/06/24 Private Coding Level of Care Code Est Pt Level 5 (55028) Complex EM visit Add On G2211 Diagnoses Abnormal Pap smear of cervix R87.619 Psoriatic arthritis L40.50 Spinal stenosis of cervical region M48.02 Fibromyalgia M79.7 HTN (hypertension) I10 Additional Codes HENRRY-7 Assessment Billing - HENRRY-7 Assessment Tool: HENRRY-7 Assessment 35644 ([id number]) PHQ-9 - 66910 - PHQ-9 Billing: Yes ([id number]) Assessment & Plan Assessment & Plan (1) Abnormal Pap smear of cervix: 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 Code(s): R87.619 - Unspecified abnormal cytological findings in specimens from cervix uteri Category: Medical Plan: Referred to [facility] farmworker animal (2) Psoriatic arthritis: Comment: Otezla 07/2024 DC 08/2024 caused worsening joint pain, not effective Code(s): L40.50 - Arthropathic psoriasis, unspecified Category: Medical Plan: Follow-up with rheumatology (3) Spinal stenosis of cervical region: Comment: Evaluated by neurosurgeon [facility] not a candidate for surgery Code(s): M48.02 - Spinal stenosis, cervical region Category: Medical Plan: Physical therapy and duloxetine for chronic pain control were recommended but patient declined. Continue Lyrica and tizanidine will be increased to every 8 hours as needed but patient is made aware that she can develop tolerance (4) Fibromyalgia: Comment: follow-up neurology Dr. Lee who prescribes ropinirole Code(s): M79.7 - Fibromyalgia Category: Medical Plan: As above (5) HTN (hypertension): Code(s): I10 - Essential (primary) hypertension Category: Medical Plan: Continue current medications Orders: Orders Comprehensive Met. Panel 3 Months E53.8 - Deficiency of other specified B group vitamins, E55.9 - Vitamin D deficiency, unspecified, I10 - Essential (primary) hypertension TSH reflex Free T4 3 Months E53.8 - Deficiency of other specified B group vitamins, E55.9 - Vitamin D deficiency, unspecified, I10 - Essential (primary) hypertension Hemoglobin A1c 3 Months E53.8 - Deficiency of other specified B group vitamins, E55.9 - Vitamin D deficiency, unspecified, I10 - Essential (primary) hypertension Complete Blood Count Auto Diff 3 Months E53.8 - Deficiency of other specified B group vitamins, E55.9 - Vitamin D deficiency, unspecified, I10 - Essential (primary) hypertension Microalbumin, Random (w Creat) 3 Months E53.8 - Deficiency of other specified B group vitamins, E55.9 - Vitamin D deficiency, unspecified, I10 - Essential (primary) hypertension Pneumococcal 20 Immunization Today Z23 - Encounter for immunization Lipid Panel 3 Months E53.8 - Deficiency of other specified B group vitamins, E55.9 - Vitamin D deficiency, unspecified, I10 - Essential (primary) hypertension Vitamin B12 and Folate 3 Months E53.8 - Deficiency of other specified B group vitamins, E55.9 - Vitamin D deficiency, unspecified, I10 - Essential (primary) hypertension Vitamin D 25-OH Total 3 Months E53.8 - Deficiency of other specified B group vitamins, E55.9 - Vitamin D deficiency, unspecified, I10 - Essential (primary) hypertension Referrals [employer] Referral R87.619 - Unspecified abnormal cytological findings in specimens from cervix uteri Medications: Changed From tizanidine 4 mg PO BID 60 tabs 0RF To tizanidine 4 mg PO Q8H 90 tabs 3RF Refilled cyanocobalamin (vitamin B-12) 1,000 mcg PO DAILY 90 tabs 3RF lisinopril 30 mg PO DAILY 90 tabs 3RF amlodipine 10 mg PO DAILY 90 tabs 3RF tizanidine 4 mg PO BID 60 tabs 0RF Discontinued famotidine Discontinued Reason: Doctor's Order 20 mg PO BEDTIME 30 tabs 0RF K29.00 - Acute gastritis without bleeding
--- OUTSIDE RECORDS SUMMARY | 2024-12-06 13:41 | XMS_ITS | Clinical Summary ---
Author Organization [facility] Address [address] [place] [address] Phone Care Team Providers Care Big Data Analytics Lead Name Role Phone Faye Delgado MD Primary Care Provider [phone] Allergies Active Allergy Reactions Criticality Noted Date Comments Ciprofloxacin Other (see comments) 05/31/2021 Methadone Other (see comments) 05/31/2021 Medications cloNIDine (CATAPRES) 0.1 MG tablet Take 1 tablet by mouth 1 (one) time each day 06/18/2019 Active ferrous sulfate 325 (65 Fe) MG tablet Take 1 tablet by mouth 2 (two) times a day Active hydrOXYzine (VISTARIL) 25 MG capsule Take 1 capsule by mouth 1 (one) time each day Active LORazepam (ATIVAN) 0.5 MG tablet Take 1 tablet by mouth 3 (three) times a day Active pregabalin (Lyrica) 75 MG capsule Take 1 capsule by mouth 3 (three) times a day Active QUEtiapine (SEROquel) 50 MG tablet Take 1 tablet by mouth 2 (two) times a day Active rOPINIRole (REQUIP) 0.25 MG tablet Take 1 tablet by mouth 4 (four) times a day Active tiZANidine (ZANAFLEX) 4 MG capsule Take 2 capsules by mouth 3 (three) times a day Active traZODone (DESYREL) 50 MG tablet Take 1 tablet by mouth at bed time Active amLODIPine (NORVASC) 10 MG tablet TAKE 1 TABLET BY MOUTH EVERY DAY 90 tablet 5 06/24/2022 Active lisinopril (PRINIVIL,ZESTR IL) 30 MG tablet TAKE 1 TABLET(30 MG) BY MOUTH EVERY DAY 30 tablet 5 07/30/2023 Active Active Problems Problem Noted Date Diagnosed Date Hypertension 07/25/2021 Acute nontraumatic kidney injury 05/31/2021 Malignant essential hypertension 05/31/2021 Family History Medical History Relation Comments Heart disease Father Hypertension Father Kidney disease Father Hypertension Sibling Relation Status Comments Father Alive Mother Alive Sibling Social History Tobacco Use Types Packs/Day Years Used Date Smoking Tobacco: Former Cigarettes Smokeless Tobacco: Former Alcohol Use Standard Drinks/Week Comments No 0 (1 standard drink = 0.6 oz pur e alcohol) Comments Unknown Sex and Gender Information Value Date Recorded Sex Assigned at Not on file Legal Sex Female 4:43 PM EST Gender Identity Not on file Sexual Orientation Not on file Last Filed Vital Signs Vital Sign Reading Time Taken Comments Blood Pressure 130/70 07/25/2021 3:26 PM EDT Pulse 73 07/25/2021 3:26 PM EDT Temperature - - Respiratory Rate - - Oxygen Saturation 97% 07/25/2021 3:26 PM EDT Inhaled Oxygen Concentration - - Weight 90.7 kg (200 lb) 07/25/2021 3:26 PM EDT Height 162.6 cm (5' 4 ) 02/17/2020 12:00 PM EDT Body Mass Index 34.33 02/17/2020 12:00 PM EDT Plan of Treatment Health Maintenance Due Date Last Done Comments Breast Cancer Screening 1966 Hepatitis B Vaccine (1 of 3 - 19+ 3-dose series) 1985 Colorectal Cancer Screening: Annual FOBT 2015 Colorectal Cancer Screening: Colonoscopy 2015 Colorectal Cancer Screening: Sigmoidoscopy 2015 Influenza Vaccine (#1) 2024 Pneumococcal Vaccine: Pediat rics (0 to 5 Years) and At-Risk Patients (6 to 64 Years) Aged Out No longer eligible b ased on patient's age to complete this topic Insurance [facility] ([id number]) [facility] ([id number]) Care Teams Big Data Analytics Lead Relationship Specialty Start Date End Date Faye Delgado MD [address] [place] [address] PCP - General Internal Medicine 07/25/21
--- OUTSIDE RECORDS SUMMARY | 2024-12-06 13:41 | XMS_ITS | Encounter Summary ---
Author Organization [facility] Address [address] [place] [address] Phone Care Team Providers Care Shoe Singer Name Role Phone Faye Delgado MD Primary Care Provider [phone] Reason for Visit * Reason Onset Date Comments RX refill 02/16/2021 Encounter Details Date Type Department Care Team (Late st Contact Info) Description 02/16/2021 Telephone [facility] [address] [place] [phone] Maritza Polo RX refill Social History Tobacco Use Types Packs/Day Years Used Date Smoking Tobacco: Every Day Cigarettes Alcohol Use Standard Drinks/Week Comments No 0 (1 standard drink = 0.6 oz pur e alcohol) Comments Unknown Sex and Gender Information Value Date Recorded Sex Assigned at Not on file Legal Sex Female 4:43 PM EST Gender Identity Not on file Sexual Orientation Not on file documented as of this encounter Miscellaneous Notes * Telephone Encounter - Sudeep Gtz MD - 02/23/2021 3:27 PM EDT sent * Telephone Encounter - Maritza Polo - 02/16/2021 2:02 PM EDT Pt called saying she needs a refill on her Lisinopril 30mg sent into the [facility] on [facility] in [place]. documented in this encounter Plan of Treatment Not on file documented as of this encounter Visit Diagnoses Not on filedocumented in this encounter Care Teams Shoe Singer Relationship Specialty Start Date End Date Faye Delgado MD [address] [place] [address] PCP - General Internal Medicine 07/25/21 documented as of this encounter
--- OUTSIDE RECORDS SUMMARY | 2024-12-06 13:41 | XMS_ITS | Continuity of Care Document ---
Author Organization [facility], [place] - [facility] Address [address] [place] [phone] Care Team Providers Care Clinical Social Work Aide Name Role Phone HIM CCA OTHER Assessment Encounter Date Assessment Date Assessment LastModified by Organization Details LastModified Time 11/23/2024 11/23/2024 I have reviewed and agree with the assessment and plan as documented by the director toxicology. I provided real time medical direction for this encounter and was immediately available to provide additional phone based assistance as needed. History as noted by director toxicology. Pt reports non productive cough x 3-4 days. No CP, SOB, fevers, chills or nasal congestion. Pt is using OTC N-acetylcystein e that was recommended to her and she reports that this has helped the cough. Pt is a smoker. On exam, pt appears well, and comfortable. Vitals normal. Lungs clear. Rapid covid and flu negative. Impression: Pt with what appears to be a viral URI with PELT SALTER cough. No other concerning symptoms, pt appears well with normal vitals and clear lungs on exam. No e/o bronchospasm or pneumonia at this time. Pt is currently taking OTC NAC with improved cough. She is told to continue this prn. Pt told to f/u with her primary care or [facility] with any persistent symptoms and to seek medical attention right away in the ED with any worsening or new symptoms, which are reviewed with her. btils Not available 11/23/2024 09:53:06 Plan of Treatment Reminders Order Date Submit Date Provider Last Modified By Organization Details Last Modified Time Details Appointments None recorded. Lab rapid SARS CoV 2 Ag, QL IA, respiratory specimen 2024 025 btils Main - [facility], [address] [place] [address], [phone], 09:47:52 rapid flu (A+B) 2024 025 btils [facility], [address] [place] [address], [phone], 09:47:52 Referral None recorded. Procedures None recorded. Surgeries None recorded. Imaging None recorded. Medication Orders None recorded. Patient TargetsNo targets recorded. Patient InstructionsNo instructions recorded. Reason for Referral None Reported. Results Created Date Observation Date Name Description Value Unit Range Abnormal Flag Note LastModifiedBy Organization Detail LastModifiedTime 11/23/1911/23/2024 rapid flu (A+B) Flu negati ve Not Available [facility] ed [address] [place] [address], [phone], 11/23/2024 09:47:32 11/23/1911/23/2024 rapid SARS CoV 2 Ag, QL IA, respi rator y speci men rapid SARS CoV 2 Ag, QL IA, respiratory specimen negati ve Not Available [facility] ed [address] [place] [address], [phone], 11/23/2024 09:47:29 Result Notes None recorded. Medical Equipment None Reported. Allergies Allergen ID Allergen Name Allergen Category Reaction Reaction Severity Criticality Documentation Date Start Date Code Code System Note Provider Name and Address Organization Details Recorded Time 06479 Cipro medicatio n Not available Not available Not available 11/22/2024 50400 3 RxNorm Not Available [facility] - production 5 20:00:02 78592 methadone medicatio n Not available Not available Not available 11/22/2024 6813 RxNorm Not Available [facility] - production 5 20:00:02 Medications Name Sig Start Date Stop Date Status Note LastModified by Organization Details LastModified Time quetiapine 25 mg tablet TAKE 1/2 TO 1 TABLET BY MOUTH TWICE DAILY NEEDED active Not Available Not Available No t Available loperamide 2 mg capsule TAKE ONE CAPSULE BY MOUTH EVERY 6 HOURS NEEDED FOR LOOSE STOOL active Not Available Not Available Not Available tizanidine 4 mg tablet TAKE 1 TABLET BY MOUTH TWICE DAILY active Not Available Not Available No t Available senna 8.6 mg tablet TAKE 2 TABLETS BY MOUTH EVERY NIGHT AT BEDTIME NEEDED FOR CONSTIPATIO N active Not Available Not Available No t Available prednisone 5 mg tablet active Not Available Not Available No t Available cyanocobalam in (vit B-12) 1,000 mcg tablet TAKE 1 TABLET BY MOUTH DAILY active Not Available Not Available Not Available ondansetron 8 mg disintegrati ng tablet DISSOLVE 1 TABLET ON THE TONGUE EVERY 8 HOURS FOR NAUSEA OR VOMITING active Not Available Not Available No t Available famotidine 20 mg tablet TAKE 1 TABLET BY MOUTH AT BEDTIME active Not Available Not Available No t Available lorazepam 0.5 mg tablet TAKE 1 TABLET BY MOUTH THREE TIMES DAILY NEEDED FOR ANXIETY active Not Available Not Available Not Available trazodone 100 mg tablet TAKE 1 TO 2 TABLETS BY MOUTH AT BEDTIME NEEDED FOR SLEEP active Not Available Not Available No t Available ropinirole 0.25 mg tablet TAKE 1 TABLET BY MOUTH FOUR TIMES DAILY active Not Available Not Available Not Available amlodipine 10 mg tablet TAKE 1 TABLET BY MOUTH DAILY active Not Available Not Available Not Available esomeprazole magnesium 40 mg capsule,ngozi yed release TAKE 1 CAPSULE BY MOUTH DAILY active Not Available Not Available Not Available lisinopril 30 mg tablet TAKE 1 TABLET BY MOUTH DAILY active Not Available Not Available Not Available docusate sodium 100 mg capsule TAKE 1 CAPSULE BY MOUTH AT BEDTIME active Not Available Not Available No t Available hydroxyzine HCl 25 mg tablet TAKE 1 TABLET BY MOUTH TWICE DAILY NEEDED FOR ANXIETY active Not Available Not Available No t Available zolpidem 5 mg tablet TAKE 1 TABLET BY MOUTH AT BEDTIME NEEDED active Not Available Not Available No t Available ondansetron 4 mg disintegrati ng tablet DISSOLVE 1 TABLET ON THE TONGUE EVERY 6 TO 8 HOURS NEEDED FOR NAUSEA OR VOMITING active Not Available Not Available No t Available metocloprami de 10 mg tablet TAKE 1 TABLET BY MOUTH EVERY 6 HOURS NEEDED FOR NAUSEA OR VOMITING active Not Available Not Available No t Available pregabalin 75 mg capsule TAKE 1 CAPSULE BY MOUTH THREE TIMES DAILY active Not Available Not Available Not Available Vitals Date Recorded Body temperature Respiratory rate Heart rate Oxygen saturation Oxygen saturation in Arterial blood by Pulse oximetry Systolic blood pressure Diastolic blood pressure Provider Name and Address Organization Details Last Updated DateTime 5 99 [degF] 16 /min 63 /min 96 % 96 % 118 mm[Hg] 72 mm[Hg] Not Available [facility] - production 5 09:39:09 Social History None recorded. Functional Status None recorded. Mental Status None recorded. Family History Nothing Reported. Medical History No medical history recorded. Gynecological HistoryNo gynecological history recorded. Obstetrics History GPAL:G 0 P 0 0 0 0 Past Encounters Encounter ID Performer Location Encounter Start Date Encounter Closed Date Diagnosis/Indication Diagnosis SNOMED-CT Code Diagnosis ICD10 Code Diagnosis Note [id number] Miguel Narvaez MD Main - [facility] [address] [place] [address] 11/23/2024 09:39:07 11/23/2024 11:07:26 Acute bronchitis 65991595 J20.9 Health Concerns Section Related Observation LastModified by Organization Detai ls LastModified Time None Recorded Concern Status LastModified by Organization Details LastModified Time None Recorded Payers Encounter Date Sequence Insurance Name Policy Number Policy Alvarez Covered Member ID Alvarez Member ID Guarantor Name 11/23/2024 1 [facility] - DOS ON OR AFTER 2023 - DUAL ELIGIBLE - HALFWAY OPTIONS AND ONE CARE (MEDICARE REPLACEMENT/AD VANTAGE - HMO) Marilynn Pena [id number] Marilynn Pena Notes Date Note Type Note Provider Name and Address Organization Details Recorded Time 11/23/2024 text/html This was a super vised home visit with director toxicology Jv Mayorga. [facility] Nurse Triage Notes (Deb Woo - RN): Patient Reports: CoughDenies: Increased work of breathing/labored ? with or without fever Unable to speak in full sentences without distress Discoloration of skin -cyanosis Needs to sleep sitting up, can? t catch breath Shortness of breath in setting of confusion Chief Complaints: Cough, Common cold symptoms, VomitingPMH: HypertensionPMH Reviewed at 11/22/2024 - 20:00Allergies Reviewed at 11/22/2024 - 20:00Comments: Other PMH: Fatty Liver disease, Psoriatic arthritisPatient developed cold sx's 2 days ago. + dry cough. Reports last night patient began gagging after coughing episode and expectorated copious amounts of white mucous. + Body aches and weakness. Denies fevers. No known sick contacts. Education provided on the response time and the member was advised to monitor reported s/s and seek emergency treatment if needed. Member to create a list of Medication allergies and Past medical history for responding medic Customer Records Division Supervisor Organization Information for Jv Mayorga Legal Name: [employer]Address: [address] [place], [place] [address], [place] [address], Medical Director: Isrrael SHAIKH No.: [id number] Customer Records Division Supervisor POC Test Results from Jv Mayorga Rapid influenza antigen (09:33:50)Flu: - Rapid COVID antigen (09:33:54)COVID: - ..................... ..................... ..................... ..................... ..................... ..................... ............... Customer Records Division Supervisor Note From Jv Mayorga: Dispatch to the call address for the female with a cough. Patient states Friday night she started not feeling well complaining of generalized weakness, tired as well as nonproductive cough. She denies chest pain, difficulty breathing, shortness of breath, fevers, N/V/D. Patient states she has been taking bopv-yft-hlpkxid medication? s with good effect. She advises she wanted to have her lungs listened to as she is prone to pneumonia. She has been able to maintain PO hydration and nutrition without issues. Patient was found sitting in living room chair, CAOX4, airway open in patent, breathing non-labored, able to speak in full sentences, ? JVD, lung sounds CTA, skin, PWD, good skin turgor, mucus membranes pink, and moist, +CMSx4, ABD soft non-tender /non-distended, a febrile, ? Aledema/swelling, rapid Covid and flu tests negative. C consulted. Patient advised to continue taking OTC medication for symptoms. Red flags discussed. All times are approximate. ..................... ..................... ..................... ..................... ..................... ..................... ............... [facility] Consulted: Miguel Narvaez ..................... ..................... ..................... ..................... ..................... ..................... ............... Disposition: Fulfilled Miguel Narvaez MD [address] [facility] [facility], [place], [address], LAURY ODELL 11/23/2024 09:54:28 OBGyn Episode No OBEpisode recorded.
--- OUTSIDE RECORDS SUMMARY | 2024-12-06 13:41 | XMS_ITS | Data Portability ---
Author Organization [facility] [place] - [facility] Address [address] [place] [phone] Care Team Providers Care Ticket Scheduler Name Role Phone HIM CCA OTHER Assessment Encounter Date Assessment Date Assessment LastModified by Organization Details LastModified Time 11/23/2024 11/23/2024 I have reviewed and agree with the assessment and plan as documented by the pecan picker. I provided real time medical direction for this encounter and was immediately available to provide additional phone based assistance as needed. History as noted by pecan picker. Pt reports non productive cough x 3-4 [...] appears to be a viral URI with PARIMUTUEL CASHIER cough. No other concerning symptoms, pt appears [...] respiratory specimen 2024 025 btils Main - [facility], [facility], [address] [place] [address], [phone], 09:47:52 rapid flu (A+B) 2024 025 btils [facility], [address] [place] [address], [phone], 09:47:52 Referral None recorded. Procedures None recorded. Surgeries None recorded. Imaging None recorded. Medication Orders None recorded. Patient TargetsNo targets recorded. Patient InstructionsNo instructions recorded. Reason for Referral None Reported. Results Created Date Observation Date Name Description Value Unit Range Abnormal Flag Note LastModifiedBy Organization Detail LastModifiedTime 11/23/1911/23/2024 rapid flu (A+B) Flu negati ve Not Available [facility] ed [address] [place] [address], [phone], 11/23/2024 09:47:32 11/23/1911/23/2024 rapid SARS CoV 2 Ag, QL IA, respi rator y speci men rapid SARS CoV 2 Ag, QL IA, respiratory specimen negati ve Not Available [facility] ed [address] [place] [address], [phone], 11/23/2024 09:47:29 Result Notes None recorded. Medical Equipment None Reported. Allergies Allergen ID Allergen Name Allergen Category Reaction Reaction Severity Criticality Documentation Date Start Date Code Code System Note Provider Name and Address Organization Details Recorded Time 15025 Cipro medicatio n Not available Not available Not available 11/22/2024 70675 3 RxNorm Not Available [facility] - production 5 20:00:02 97053 methadone medicatio n Not available Not available [...] SNOMED-CT Code Diagnosis ICD10 Code Diagnosis Note [id number] Miguel Narvaez MD Main - [facility] [address] [place] [address] 11/23/2024 09:39:07 11/23/2024 11:07:26 Acute bronchitis [id number] J20.9 Health Concerns Section Related Observation LastModified by Organization Detai ls LastModified Time None Recorded Concern Status LastModified by Organization Details LastModified Time None Recorded Advance Directives Directive None Recorded Payers Encounter Date Sequence Insurance Name Policy Number Policy Alvarez Covered Member ID Alvarez Member ID Guarantor Name 11/23/2024 1 [facility] - DOS ON OR AFTER 2023 - DUAL ELIGIBLE - [employer] OPTIONS AND ONE CARE (MEDICARE REPLACEMENT/AD VANTAGE - HMO) Marilynn Pena [id number] Marilynn Pena Notes Date Note Type Note Provider Name and Address Organization Details Recorded Time 11/23/2024 text/html This was a super vised home visit with pecan picker Jv Mayorga. CRC Nurse Triage Notes (Deb [...] and Past medical history for responding medic [employer] Organization Information for Jv Mayorga Legal Name: [employer]Address: [address] [place] [address], [place] [address], Medical Director: Isrrael PAULSONLIA No.: [id number] [employer] POC Test Results from Jv Mayorga Rapid influenza antigen (09:33:50)Flu: - Rapid COVID antigen (09:33:54)COVID: - ..................... ..................... ..................... ..................... ..................... ..................... ............... [employer] Note From Jv Mayorga: Dispatch to the call address for the female with a cough. Patient states Friday night she started not feeling well complaining of generalized weakness, tired as well as nonproductive cough. She denies chest pain, difficulty breathing, shortness of breath, fevers, N/V/D. Patient states she has been taking kkbc-fsl-ovbagkg medication? s with good effect. She advises [...] ..................... ..................... ..................... ..................... ..................... ..................... ............... [facility] Consulted: Miguel Narvaez ..................... ..................... ..................... ..................... ..................... ..................... ............... Disposition: Fulfilled Miguel Narvaez MD [address] [facility],[address] [facility], [place], [address], [place] twiDAQLAURY LABOY 11/23/2024 09:54:28 OBGyn Episode No OBEpisode recorded.
== END 2024-12-06 14:26 | disposition home or self-care (01) ==
PROVIDERS: PCP Internal Medicine; Visit Provider Internal Medicine
DX: R87.619 Unspecified abnormal cytological findings in specimens from cervix uteri (principal); L40.50 Arthropathic psoriasis, unspecified; M48.02 Spinal stenosis, cervical region; M79.7 Fibromyalgia; I10 Essential (primary) hypertension; Z23 Encounter for immunization

== ENCOUNTER → 2024-12-06 12:42 | Outpatient (BNVA) | payer OTHER, SELFPAY | PROVIDERS: PCP Internal Medicine; Visit Provider Internal Medicine | DX: Z23 Encounter for immunization (principal); L40.50 Arthropathic psoriasis, unspecified; M48.02 Spinal stenosis, cervical region; M79.7 Fibromyalgia; I10 Essential (primary) hypertension; R87.619 Unspecified abnormal cytological findings in specimens from cervix uteri | CPT/HCPCS: 90471; 90677; 96127; 99212 ==

== ENCOUNTER 2025-01-10 14:51 | Outpatient (AMB) | payer OTHER, SELFPAY ==
--- NOTE | 2025-01-10 14:59 | MHC.OFFVIS ---
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/Palpitations Intake Note: New patient c/o chest pain when stress had syncope Scarfer Operator Required: No Piccoloist: Piccoloist Present Accompanied by: Family/Other Allergies procaine [From NOVOCAIN] Allergy (Severe, Verified 12/06/24 12:53) ANAPHYLAXIS methadone [METHADONE] Allergy (Intermediate, Verified 12/06/24 12:53) FLUID BUILD UP AROUND HEART ciprofloxacin [CIPROFLOXACIN] Adverse Reaction (Intermediate, Verified 12/06/24 12:53) REACTION WITH MUSCLE RELAXERS clindamycin [CLINDAMYCIN] Adverse Reaction (Intermediate, Verified 12/06/24 12:53) PALPITATIONS Medication List - Last Reconciled 01/10/25 by Josiah Silva MD amlodipine 10 mg PO DAILY [barrier cream As directed] [cleansing wipes As directed] cyanocobalamin (vitamin B-12) 1,000 mcg PO DAILY docusate sodium 100 mg PO BEDTIME esomeprazole magnesium 40 mg PO DAILY incontinence pad, liner, disp (Poise Pads) As directed incontinence pad, liner, disp As directed-medium absorbancy lisinopril 30 mg PO DAILY lorazepam 0.5 mg PO TID PRN ondansetron 4 mg PO Q6-8H PRN pregabalin 75 mg PO TID ropinirole 0.25 mg PO .QID tizanidine 4 mg PO Q8H trazodone 50 mg PO ONCE [Washable bed pad As directed] zolpidem 5 mg PO BEDTIME PRN HPI Comments Details: Marilynn was referred here for episodes of syncope as well as chest discomfort. She was 59-year-old female with recently diagnose psoriatic arthritis in the polyarthralgia but has prior history of significant cervical spine injury in 1999 when she fell down a flight of stairs. She has significant cervical spine narrowing as per her and has had surgery but has been told that she is not a candidate for anymore surgery. She does have spinal cord compression as per her. She has chronic pain syndrome. She also has lumbar spine disease with lumbar spinal stenosis. Over the last few months she has been having intermittent episode of syncope where she notices that she passes out. EMS has been called in a blood pressures been significantly low at that point time. Also at other times with pain or with anxiety and stress a blood pressure super high and she get associated chest tightness pressure. She also has increasing symptoms of shortness of breath but she is minimally functional and active and does minimal exercise. Denies any orthopnea, PND, leg edema. She is currently on dual therapy with lisinopril amlodipine for blood pressure. She was currently not on significant pain meds. She was trying to control some of her pain with natural methods and non medical methods. [facility] Medical History Psoriasis Hyperglycemia Annual physical exam GI (gastrointestinal bleed) Diverticulitis Abdominal pain Vitamin B12 deficiency Osteoarthritis of right knee Fibromyalgia Lumbar degenerative disc disease Cervical radiculopathy Depression Vitamin D deficiency HTN (hypertension) Hyperlipidemia Surgical History Hx of colonoscopy H/O Spinal surgery Family History Mother Lupus (systemic lupus erythematosus) Rheumatoid arthritis Social History Housing: House Alcohol intake: current Alcohol intake frequency: does not drink Patient Tobacco Use Status: Former Tobacco user e-Cigarette/Vaping Use: Currently Using Second Hand Smoke Exposure: No service: No Current occupational status: disabled Cognitive needs: No Hearing needs: No Vision needs: No Review of Systems Const Denies chills, Reports daytime sleepiness, Reports fatigue, Denies fever(s), Reports frequent falls, Denies poor appetite, Denies snoring, Denies stops breathing during sleep, Reports weakness, Denies weight gain and Denies weight loss Eyes Denies loss of vision ENT Reports dizziness and Denies hearing loss Card Reports chest pain, Reports claudication, Denies leg edema, Reports lightheadedness, Reports palpitations, Reports dyspnea, Reports dyspnea on exertion and Reports orthopnea Resp Denies cough, Denies excessive phlegm production, Reports dyspnea, Reports dyspnea on exertion, Denies snoring and Denies wheezing GI Denies abdominal pain, Denies hematochezia, Denies change in bowel habits, Denies nausea and Denies vomiting Denies urinary frequency and Denies dysuria Musc Reports arthralgias, Reports muscle weakness, Reports numbness and Denies other (frequent falls) Skin/Breast Denies nail changes and Denies rash Neuro Denies Abnormal speech present, Reports dizziness, Reports frequent falls, Denies loss of vision, Denies memory loss, Reports numbness and Reports weakness Psych Denies depression and Denies memory loss Endo Reports fatigue and Reports palpitations David/Lymph Reports easy bruising and Reports other (anemia) Aller/Immun Denies wheezing Physical Exam Vital Signs: Last Vital Signs Pulse 67 01/10/25 15:00 BP 120/76 01/10/25 15:00 Const General: cooperative, comfortable, alert, awake, poor hygiene and tired appearing Nutritional Appearance: overweight Orientation/consciousness: patient oriented x3 Limitations: wheelchair HEENT Head: Yes normocephalic and Yes atraumatic Neck Neck: Yes trachea midline, Yes supple and Yes no JVD Resp Effort & Inspection: normal respiratory effort Auscultation: clear to auscultation bilaterally Cardio Jugular venous distension: no JVD Palpation: normal PMI Rate: regular rate Rhythm: regular rhythm Heart sounds: S1 normal heart sound present, S2 normal heart sound present, no click, no gallops, no murmurs and no rubs GI Auscultation: normal bowel sounds Skin General skin exam: no rashes or lesions noted Neuro General: patient oriented x3 and no focal motor deficits Speech: No Abnormal speech present Extrem General: Yes no clubbing, cyanosis or edema Office Procedures EKG Details: EKG shows normal sinus rhythm with normal EKG 79596-[id number], Complete Assessment & Plan Assessment & Plan (1) Labile blood pressure: Code(s): R09.89 - Other specified symptoms and signs involving the circulatory and respiratory systems Category: Medical Plan: Patient was prior history of hypertension currently on dual therapy with markedly labile blood pressure with episode of syncope related to low blood pressure. With episodes of significant elevated blood pressure under stress or under pain. This is highly suggestive of autonomic dysfunction most likely due to cervical spine injury. This is a very difficult problem to resolve. Blood pressure is currently optimized on current therapy. Advised to maintain adequate hydration. Advised to seek supine position when her blood pressure is low and/or she becomes syncopal. She is advised to participate in stress mitigation of pain control regimen to prevent spiking blood pressures. Will obtain echocardiogram to assess for LV systolic and diastolic function to evaluate for pulmonary hypertension. Will also suggest a Holter monitor to evaluate for any significant [place]rell arrhythmias that could potentially be contributing to her syncopal episodes. (2) Chest pain: Code(s): R07.9 - Chest pain, unspecified Category: Medical Plan: Chest pain the setting of significantly elevated blood pressure which could be secondary to subendocardial ischemia from hypertension. Also underlying obstructive coronary artery disease can not be entirely ruled out. She does have family history for coronary disease. She was inability to exercise would suggest vasodilating myocardial perfusion imaging to further assess for the same. Further treatment based on the findings. Follow up in the clinic in 2 months time, sooner p.r.n.. Thank you for allowing me to partake in his care Coding Level of Care Code Tele New Pt Level 4 (52510) Complex EM visit Add On G2211 Diagnoses Labile blood pressure R09.89 Chest pain R07.9 CPT Codes EKG - CPT: 00070-[id number], Complete ([id number])
[2025-01-10 15:00] VITALS: BP 120/76; PULSE 67
== END 2025-01-10 15:58 | disposition home or self-care (01) ==
PROVIDERS: PCP Internal Medicine; Visit Provider Internal Medicine Cardiovascular Disease
DX: R03.0 Elevated blood-pressure reading, without diagnosis of hypertension (principal); R07.9 Chest pain, unspecified
CPT/HCPCS: 93010; 99204; G2211

== ENCOUNTER → 2025-01-10 14:51 | Outpatient (BNVA) | payer OTHER, SELFPAY | PROVIDERS: PCP Internal Medicine; Visit Provider Internal Medicine Cardiovascular Disease | DX: R09.89 Other specified symptoms and signs involving the circulatory and respiratory systems (principal); R07.9 Chest pain, unspecified | CPT/HCPCS: 93005; 99202 ==

== ENCOUNTER → 2025-02-04 12:57 | Outpatient (REF) | payer OTHER, SELFPAY ==
--- NOTE | 2025-02-04 13:04 | CA_ITS ---
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 There is mildly increased left ventricular wall thickness. The visually estimated ejection fraction is between 55-60%. - Elevated filling pressures. - Normal right ventricular cavity size and systolic function. Findings Procedure Information Contrast agent, definity, is being given per protocol without apparent complications. Left Ventricle Normal left ventricular size and systolic function. There is mildly increased left ventricular wall thickness. The visually estimated ejection fraction is between 55-60%. There is no evidence of regional wall motion abnormalities. Abnormal diastolic function is noted. Spectral Doppler is indicative of a pseudonormal filling pattern. Elevated filling pressures. Right Ventricle Normal right ventricular cavity size and systolic function. Atria The left atrium is normal in size. The right atrium is likely dilated. Aortic Valve Normal aortic valve structure and function. There is no aortic valve stenosis. There is no aortic valve regurgitation. Mitral Valve Normal mitral valve structure and function. There is no mitral valve regurgitation. There is no mitral valve stenosis. Pulmonic Valve The pulmonic valve is likely normal. Tricuspid Valve Normal tricuspid valve structure. There is no tricuspid valve regurgitation. Tricuspid regurgitation envelope is inadequate for calculation of right ventricular systolic pressure. Normal right atrial pressure. Great Vessels All visible segments of the aorta are normal in size. The visualized portions of the pulmonary artery and branches are normal. Venous The inferior vena cava is normal in size and collapses greater than 50% with inspiration. Pericardium/Pleural There is no evidence of pericardial effusion. Prior Study Comparison No prior study available for comparison. Measurements 2D Linear Measurements IVSd: 1.11 0.6-0.9/0.6-1.0 cm LVIDd: 4.85 3.9-5.3/4.2-5.9 cm LVIDd Index: 2.51 2.4-3.2/2.2-3.1 cm/m2 LVIDs: 3.15 2.0-3.6 cm LVPWd: 1.08 0.7-1.1 cm Ao Root: 2.70 2.1-3.5 cm LA Diam: 3.40 2.7-3.8/3.0-4.0 cm LAIDs Index: 1.76 1.5-2.3 cm/m2 LV Mass: 244.22 67-162/88-224 g LV Mass Index: 126.54 43-95/49-115 g/m2 LVOT Diam: 1.90 3.0+(-)1.3 cm 2D Systolic Function EF 4C: 66.30 >55% EF 2C: 63.20 >55% EF BiP: 61.30 >55% Mitral Valve MV Pk E: 0.89 MV PK A: 0.75 MV Decel Time: 227.00 E/A: 1.20 E'Lateral: 5.55 E'Medial: 4.79 E/E' Med: 18.60 E/E' Lat: 16.10 PHT: 66.00 MVA PHT: 3.33 Decel [place]: 3.93 Aortic Valve AoV Pk Phill: 1.69 AoV Mn Phill: 1.12 AoV VTI: 0.40 AoV Pk Grad: 11.00 Aov Mn Grad: 6.00 CHIARA Cont.VTI: 2.07 LVOT LVOT Pk Phill: 1.28 LVOT Mn Phill: 0.83 LVOT VTI: 0.29 LVOT Pk Grad: 7.00 LVOT Mn Grad: 3.00 LVOT Diam: 1.90 LVOT Area: 2.84 Diastolic Function MV Pk E: 0.89 MV Pk A: 0.75 E/A: 1.20 E'Medial: 4.79 E/E' Med: 18.60 E' Laterial: 5.55 E/E' Lat: 16.10 Right Ventricle TAPSE (mm): 26.70 TVS' Phill: 13.40 Tricuspid Valve TR Pk Phill: 2.15 TR Pk Grad: 18.00 Great Vessels Aorta Ao Root-2D: 2.70 2.0-3.7 cm Ao Asc: 2.80 2.1-3.4 cm Pulmonary Valve PV Pk Phill: 1.21 Peak PV Grad: 6.00 Updated in Other Vendor System with Status of Final Francisco Echevarria MD electronically signed on 02/06/2025 6:16:51 PM with status of Final
--- OUTSIDE RECORDS SUMMARY | 2025-02-04 13:28 | XMS_ITS | Data Portability ---
Author Organization [employer] [facility] [place] - [facility] Address [address] [place] [id number] Care Team Providers Care Grain Elevator Worker Name Role Phone HIM CCA OTHER Assessment Encounter Date Assessment Date Assessment LastModified by Organization Details LastModified Time 11/23/2024 11/23/2024 I have reviewed and agree with the assessment and plan as documented by the leisure studies professor. I provided real time medical direction for this encounter and was immediately available to provide additional phone based assistance as needed. History as noted by leisure studies professor. 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 No other concerning symptoms, pt appears [...] IA, respiratory specimen 2024 025 btils Main [facility], [address] [place] [address], [phone] 09:47:52 rapid flu (A+B) 2024 025 btils [facility], [address] [place] [address], [phone] 09:47:52 Referral None recorded. Procedures None recorded. Surgeries None recorded. Imaging None recorded. Medication Orders None recorded. Patient TargetsNo targets recorded. Patient InstructionsNo instructions recorded. Reason for Referral None Reported. Results Created Date Observation Date Name Description Value Unit Range Abnormal Flag Note LastModifiedBy Organization Detail LastModifiedTime 11/23/1911/23/2024 rapid flu (A+B) Flu negati ve Not Available [facility] ed [address] [place] [address], [phone] 11/23/2024 09:47:32 11/23/1911/23/2024 rapid SARS CoV 2 Ag, QL IA, respi rator y speci men rapid SARS CoV 2 Ag, QL IA, respiratory specimen negati ve Not Available [address], [phone] 11/23/2024 09:47:29 Result Notes None recorded. Medical Equipment None Reported. Allergies Allergen ID Allergen Name Allergen Category Reaction Reaction Severity Criticality Documentation Date Start Date Code Code System Note Provider Name and Address Organization Details Recorded Time 34671 Cipro medicatio n Not available Not available Not available 11/22/2024 00854 3 [facility] 20:00:02 10082 methadone medicatio n Not available Not available Not available 11/22/2024 6813 RxNorm Not Available [facility] 20:00:02 Medications Name Sig [...] % 118 mm[Hg] 72 mm[Hg] Not Available [facility] - production 5 09:39:09 Social History None recorded. Functional Status None recorded. Mental Status None recorded. Family History Nothing Reported. Medical History No medical history recorded. Gynecological HistoryNo gynecological history recorded. Obstetrics History GPAL:G 0 P 0 0 0 0 Past Encounters Encounter ID Performer Location Encounter Start Date Encounter Closed Date Diagnosis/Indication Diagnosis SNOMED-CT Code Diagnosis ICD10 Code Diagnosis Note [id number] Miguel Narvaez MD Main - [facility] [address] [place] [address] 11/23/2024 09:39:07 11/23/2024 11:07:26 Acute bronchitis 72742392 J20.9 Health Concerns Section Related Observation LastModified by Organization Detai ls LastModified Time None Recorded Concern Status LastModified by Organization Details LastModified Time None Recorded Advance Directives Directive None Recorded Payers Encounter Date Sequence Insurance Name Policy Number Policy Alvarez Covered Member ID Alvarez Member ID Guarantor Name 11/23/2024 1 [facility] - DOS ON OR AFTER 2023 - DUAL ELIGIBLE - [employer] OPTIONS AND ONE CARE (MEDICARE REPLACEMENT/AD VANTAGE - HMO) Marilynn Pena [id number] Marilynn Pena Notes Date Note Type Note Provider Name and Address Organization Details Recorded Time 11/23/2024 text/html This was a super vised home visit with leisure studies professor Jv Mayorga. CRC Nurse Triage Notes (Deb [...] and Past medical history for responding medic Infection Control Manager Organization Information for Jv Mayorga Legal Name: [employer]Address: [address] [place] [id number], USMedical Director: Isrrael Suarez [facility] No.: [id number] Infection Control Manager POC Test Results from [facility] - ALS Rapid influenza antigen (09:33:50)Flu: - Rapid COVID antigen (09:33:54)COVID: - ..................... ..................... ..................... ..................... ..................... ..................... ............... Infection Control Manager Note From Jv Mayorga: Dispatch to the call address for the female with a cough. Patient states Friday night she started not feeling well complaining of generalized weakness, tired as well as nonproductive cough. She denies chest pain, difficulty breathing, shortness of breath, fevers, N/V/D. Patient states she has been taking [id number] medication? s with good effect. She advises [...] ..................... ..................... ..................... ..................... ..................... ..................... ............... [facility] Consulted: Miguel Narvaez ..................... ..................... ..................... ..................... ..................... ..................... ............... Disposition: Fulfilled Miguel Narvaez MD [address] [facility] [facility], [place], [phone], [employer] - [employer] Certain 11/23/2024 09:54:28 OBGyn Episode No OBEpisode recorded.
--- OUTSIDE RECORDS SUMMARY | 2025-02-04 13:28 | XMS_ITS | Encounter Summary ---
Author Organization [facility] Address [address] [place] [address] Phone Care Team Providers Care Inside Sales Engineer Name Role Phone Faye Delgado MD Primary Care Provider [phone] Reason for Visit * Reason Onset Date Comments RX refill 02/16/2021 Encounter Details Date Type Department Care Team (Late st Contact Info) Description 02/16/2021 Telephone [facility] [address] [place] [phone] Maritza Polo RX refill Social History Tobacco [...] Lisinopril 30mg sent into the [facility] on [facility] in [place]. documented in this encounter Plan of Treatment Not on file documented as of this encounter Visit Diagnoses Not on filedocumented in this encounter Care Teams Inside Sales Engineer Relationship Specialty Start Date End Date Faye Delgado MD [address] [place] [address] PCP - General Internal Medicine 07/25/21 documented as of this encounter
--- OUTSIDE RECORDS SUMMARY | 2025-02-04 13:28 | XMS_ITS | Clinical Summary ---
Author Organization [facility] Address [address] [place] [address] Phone Care Team Providers Care Cna Caregiver Name Role Phone Faye Delgado MD Primary Care Provider [phone] Allergies Active Allergy Reactions Criticality Noted Date [...] Colorectal Cancer Screening: Sigmoidoscopy 2015 Influenza Vaccine (Season Ended) 2025 Pneumococcal Vaccine: Peds ( 0 to 5 Years) and At-Risk Patients (6 to 49 Years) Aged Out No longer eligible b ased on patient's age to complete this topic Insurance [facility] ([id number]) [facility] ([id number]) Care Teams Cna Caregiver Relationship Specialty Start Date End Date Faye Delgado MD [address] [place] [address] PCP - General Internal Medicine 07/25/21
== END ==
LOC: HO.CARD 12:57
PROVIDERS: PCP Internal Medicine; Visit Provider Internal Medicine Cardiovascular Disease
DX: R55 Syncope and collapse (principal); R07.9 Chest pain, unspecified
CPT/HCPCS: 93242; 93306; Q9957

== ENCOUNTER → 2025-02-04 13:04 | Outpatient (BNV) | payer OTHER, SELFPAY | PROVIDERS: PCP Internal Medicine; Visit Provider Internal Medicine Cardiovascular Disease | DX: I36.8 Other nonrheumatic tricuspid valve disorders (principal) | CPT/HCPCS: 93306 ==

== ENCOUNTER 2025-02-16 15:08 | Outpatient (AMB) | payer OTHER, SELFPAY ==
--- NOTE | 2025-02-16 15:18 | MHC.OFFVIS ---
Vital Signs 02/16/25 15:19 Height 5 ft 2 in BMI Reason not done Patient refused/unable BP 120/60 Blood Pressure Location Lt brachial Position Sitting Pulse 70 Pulse Source Pulse Oximeter Pulse Oximetry (%) 93 Oxygen Delivery Method Room Air Intake Visit Reasons: 3 mo FU Intake Note: ESTABLISHED PATIENT for mgmt of GERD + IBS. Chief Complaint; Pt reports needing refills of their GI meds (senna, nexium, and colace). Pt reports all her meds are working well for her, no sx or concerns. Transportation Dispatch Manager Required: No Accompanied by: Family/Other Allergies procaine [From NOVOCAIN] Allergy (Severe, Verified 02/16/25 15:33) ANAPHYLAXIS methadone [METHADONE] Allergy (Intermediate, Verified 02/16/25 15:33) FLUID BUILD UP AROUND HEART ciprofloxacin [CIPROFLOXACIN] Adverse Reaction (Intermediate, Verified 02/16/25 15:33) REACTION WITH MUSCLE RELAXERS clindamycin [CLINDAMYCIN] Adverse Reaction (Intermediate, Verified 02/16/25 15:33) PALPITATIONS HPI HPI 3 mo FU: Details: LAST VISIT: Elevated LFTs Abdominal pain GERD (gastroesophageal reflux disease) Chronic idiopathic constipation Diarrhea Postprandial epigastric pain Postprandial abdominal bloating Non-alcoholic fatty liver disease Plan High-fiber diet recommended to patient. Continue to avoid dietary triggers and late night snacking. Staying upright for minimum 3 hours after meals discussed with patient. Continue Nexium and Pepcid. Patient is due to go for colonoscopy, however she will need to get worked up by Cardiology with new symptoms of shortness of breath, chest pain and palpitation. Patient has an appointment in December and will follow-up here in January. Patient is agreeable to this plan and verbalizes understanding of instructions. She was given the opportunity to ask questions and all questions answered. TODAY'S VISIT: Patient is here today for follow-up. Patient reports that she has been doing quite well. She is taking asdi-iou-buffeox supplements like berberine, NAD and fish oil and reports that she is feeling much better. She is taking as omeprazole in the morning and her symptoms of acid reflux are suppressed. No longer she is having any diarrhea. Reports that her stools are formed. Patient denies melena, hematochezia, unintentional weight loss or ribbon like stools. Denies any dyspepsia, dysphagia or odynophagia. ? PFSH Medical History Psoriasis Hyperglycemia Annual physical exam GI (gastrointestinal bleed) Diverticulitis Abdominal pain Vitamin B12 deficiency Osteoarthritis of right knee Fibromyalgia Lumbar degenerative disc disease Cervical radiculopathy Depression Vitamin D deficiency HTN (hypertension) Hyperlipidemia Surgical History Hx of colonoscopy H/O Spinal surgery Family History Mother Lupus (systemic lupus erythematosus) Rheumatoid arthritis Social History Housing: House Alcohol intake: current Alcohol intake frequency: does not drink Patient Tobacco Use Status: Former Tobacco user e-Cigarette/Vaping Use: Currently Using Second Hand Smoke Exposure: No service: No Current occupational status: disabled Cognitive needs: No Hearing needs: No Vision needs: No Review of Systems Const Denies weight gain and Denies weight loss ENT Reports no additional complaints, Denies dysphagia and Denies odynophagia Card Reports no additional complaints Resp Reports no additional complaints GI Denies abdominal pain, Denies belching, Denies melena, Denies bloating, Denies change in bowel habits, Denies dysphagia, Denies excessive flatus, Denies dyspepsia, Denies heartburn, Denies diarrhea, Denies loose stools, Denies nausea, Denies odynophagia and Denies vomiting Musc Reports no additional complaints Neuro Reports no additional complaints Psych Reports no additional complaints Endo Reports no additional complaints Physical Exam Vital Signs: Last Vital Signs Pulse 70 02/16/25 15:19 BP 120/60 02/16/25 15:19 Pulse Ox 93 02/16/25 15:19 Oxygen Delivery Method Room Air 02/16/25 15:19 Const Other: Patient sitting in the wheelchair accompanied by a friend General: healthy appearing, no acute distress and well developed Nutritional Appearance: overweight Orientation/consciousness: patient oriented x3 Limitations: ambulation with cane Resp Effort & Inspection: normal respiratory effort, able to speak in complete sentences, no tracheal deviation and symmetric chest movement Auscultation: clear to auscultation bilaterally Cardio Rate: regular rate GI Inspection: Yes normal to inspection, No distended and Yes obesity Palpation (GI): Soft to palpation, not firm, nontender and No hepatosplenomegaly present Auscultation: normal bowel sounds General: Yes no CVA tenderness Back/Spine/Pelvis Back: no CVA tenderness Skin General skin exam: elasticity normal, turgor normal and dry skin Neuro General: patient oriented x3 Psych Appearance: grossly normal Mental Status: mental status grossly normal Assessment & Plan Assessment & Plan (1) GERD (gastroesophageal reflux disease): Code(s): K21.9 - Gastro-esophageal reflux disease without esophagitis Qualifiers: Esophagitis presence: without esophagitis Qualified Code(s): K21.9 - Gastro-esophageal reflux disease without esophagitis (2) Chronic idiopathic constipation: Code(s): K59.04 - Chronic idiopathic constipation (3) Postprandial abdominal bloating: Code(s): R14.0 - Abdominal distension (gaseous) (4) Non-alcoholic fatty liver disease: Code(s): K76.0 - Fatty (change of) liver, not elsewhere classified Plan Patient will continue esomeprazole. Avoid dietary triggers and late night snacking. Staying upright for minimal 3 hours after meals discussed with patient. Patient will continue low-fat, low salt, low carb and high protein diet. Repeat ultrasound and liver panel in 6 months. Patient will call us if she will have any GI concerning symptoms. She is agreeable to current plan of care and verbalizes understanding of instructions. She was given the opportunity to ask questions and all questions answered. Thank you for allowing me to participate in her care Orders: Orders Liver Panel Today R74.01 - Elevation of levels of liver transaminase levels US abdomen villalobos w elastography Today K76.0 - Fatty (change of) liver, not elsewhere classified Medications: Refilled esomeprazole magnesium 40 mg PO DAILY 90 caps 3RF Coding Level of Care Code Est Pt Level 4 (32599) Complex EM visit Add On G2211 Diagnoses Gastroesophageal reflux disease without esophagitis K21.9 Esophagitis presence: without esophagitis Chronic idiopathic constipation K59.04 Postprandial abdominal bloating R14.0 Non-alcoholic fatty liver disease K76.0 Time Spent (min) 35 Comment 25 minutes spent with patient and additional 10 minutes spent reviewing her records
[2025-02-16 15:19] VITALS: BP 120/60; PULSE 70; O2SAT 93
--- OUTSIDE RECORDS SUMMARY | 2025-02-16 17:55 | XMS_ITS | Data Portability ---
Author Organization [facility], [facility] in - [facility] Address [address] [place] [phone] Care Team Providers Care Distilling Department Supervisor Name Role Phone HIM CCA OTHER Assessment Encounter Date Assessment Date Assessment LastModified by Organization Details LastModified Time 11/23/2024 11/23/2024 I have reviewed and agree with the assessment and plan as documented by the pewter fabricator. I provided real time medical direction for this encounter and was immediately available to provide additional phone based assistance as needed. History as noted by pewter fabricator. Pt reports non productive cough x 3-4 [...] appears to be a viral URI with ACID LOADER cough. No other concerning symptoms, pt appears [...] IA, respiratory specimen 2024 025 btils Main [facility], [address] [place] [address], [phone] 09:47:52 rapid flu (A+B) [address] [facility], [address] [place] [address], [phone] 09:47:52 Referral None recorded. Procedures None recorded. Surgeries None recorded. Imaging None recorded. Medication Orders None recorded. Patient TargetsNo targets recorded. Patient InstructionsNo instructions recorded. Reason for Referral None Reported. Results Created Date Observation Date Name Description Value Unit Range Abnormal Flag Note LastModifiedBy Organization Detail LastModifiedTime 11/23/1911/23/2024 rapid flu (A+B) Flu negati ve Not Available [facility] ed [address] [place] [address], [phone] 11/23/2024 09:47:32 11/23/1911/23/2024 rapid SARS CoV 2 Ag, QL IA, respi rator y speci men rapid SARS CoV 2 Ag, QL IA, respiratory specimen negati ve Not Available [address], [phone] 11/23/2024 09:47:29 Result Notes None recorded. Medical Equipment None Reported. Allergies Allergen ID Allergen Name Allergen Category Reaction Reaction Severity Criticality Documentation Date Start Date Code Code System Note Provider Name and Address Organization Details Recorded Time 40068 Cipro medicatio n Not available Not available Not available 11/22/2024 37957 3 RxNorm Not Available [facility] 20:00:02 54535 methadone medicatio n Not available Not available Not available 11/22/2024 6813 RxNorm Not Available [facility] 5 20:00:02 Medications Name Sig [...] % 118 mm[Hg] 72 mm[Hg] Not Available [employer] - production 5 09:39:09 Social History None recorded. Functional Status None recorded. Mental Status None recorded. Family History Nothing Reported. Medical History No medical history recorded. Gynecological HistoryNo gynecological history recorded. Obstetrics History GPAL:G 0 P 0 0 0 0 Past Encounters Encounter ID Performer Location Encounter Start Date Encounter Closed Date Diagnosis/Indication Diagnosis SNOMED-CT Code Diagnosis ICD10 Code Diagnosis Note [id number] Miguel Narvaez MD Main - [facility] [address] [place] [phone] 11/23/2024 09:39:07 11/23/2024 11:07:26 Acute bronchitis 14382172 J20.9 Health Concerns Section Related Observation LastModified by Organization Detai ls LastModified Time None Recorded Concern Status LastModified by Organization Details LastModified Time None Recorded Advance Directives Directive None Recorded Payers Encounter Date Sequence Insurance Name Policy Number Policy Alvarez Covered Member ID Alvarez Member ID Guarantor Name 11/23/2024 1 [facility] - DOS ON OR AFTER 2023 - DUAL ELIGIBLE - [employer] OPTIONS AND ONE CARE (MEDICARE REPLACEMENT/AD VANTAGE - HMO) Marilynn Pena [id number] Marilynn Pena Notes Date Note Type Note Provider Name and Address Organization Details Recorded Time 11/23/2024 text/html This was a super vised home visit with pewter fabricator Jv Mayorga. CRC Nurse Triage Notes (Deb [...] and Past medical history for responding medic Web Systems Developer Organization Information for Jv Mayorga Legal Name: for; to (do).?Address: [address] [place] [address], USMedical Director: Isrrael Suarez [facility] No.: [id number] Web Systems Developer POC Test Results from Tierra Jv - ALS Rapid influenza antigen (09:33:50)Flu: - Rapid COVID antigen (09:33:54)COVID: - ..................... ..................... ..................... ..................... ..................... ..................... ............... Web Systems Developer Note From Jv Mayorga: Dispatch to the call address for the female with a cough. Patient states Friday night she started not feeling well complaining of generalized weakness, tired as well as nonproductive cough. She denies chest pain, difficulty breathing, shortness of breath, fevers, N/V/D. Patient states she has been taking mezg-oyb-guyukuz medication? s with good effect. She advises [...] ..................... ..................... ..................... ..................... ..................... ..................... ............... [facility] Consulted: Miguel Narvaez ..................... ..................... ..................... ..................... ..................... ..................... ............... Disposition: Fulfilled Miguel Narvaez MD [address] [facility],[address] [facility], [place], [address], [employer] [employer] 11/23/2024 09:54:28 OBGyn Episode No OBEpisode recorded.
--- OUTSIDE RECORDS SUMMARY | 2025-02-16 17:55 | XMS_ITS | Encounter Summary ---
Author Organization [facility] Address [address] [place] [address] Phone Care Team Providers Care Health And Wellness Director Name Role Phone Faye Delgado MD Primary Care Provider [phone] Reason for Visit * Reason Onset Date Comments RX refill 02/16/2021 Encounter Details Date Type Department Care Team (Late st Contact Info) Description 02/16/2021 Telephone [facility] [address] [place] [phone] Maritza Polo RX refill Social History Tobacco [...] Lisinopril 30mg sent into the [facility] on [facility] in [place]. documented in this encounter Plan of Treatment Not on file documented as of this encounter Visit Diagnoses Not on filedocumented in this encounter Care Teams Health And Wellness Director Relationship Specialty Start Date End Date Faye Delgado MD [address] [place] [address] PCP - General Internal Medicine 07/25/21 documented as of this encounter
--- OUTSIDE RECORDS SUMMARY | 2025-02-16 17:55 | XMS_ITS | Clinical Summary ---
Author Organization [facility] Address [address] [place] [address] Phone Care Team Providers Care Senior Solutions Engineer Name Role Phone Faye Delgado MD Primary Care Provider [phone] Allergies Active Allergy Reactions Criticality Noted Date [...] (1 of 3 - 19+ 3-dose series) 09/27 Colorectal Cancer Screening: Annual FOBT 2015 Colorectal Cancer Screening: Colonoscopy 2015 Colorectal Cancer Screening: Sigmoidoscopy 2015 Pneumococcal Vaccine: 50+ Years (1 of 1 - PCV) 016 Influenza Vaccine (Season Ended) 2025 Insurance [facility] ([id number]) [facility] ([id number]) Care Teams Senior Solutions Engineer Relationship Specialty Start Date End Date Faye Delgado MD [facility] [address] PCP - General Internal Medicine 07/25/21
== END 2025-02-16 16:16 | disposition home or self-care (01) ==
LOC: HO.HGI 15:09
PROVIDERS: PCP Internal Medicine; Visit Provider Nurse Practitioner Family
DX: K21.9 Gastro-esophageal reflux disease without esophagitis (principal); K59.04 Chronic idiopathic constipation; R14.0 Abdominal distension (gaseous); K76.0 Fatty (change of) liver, not elsewhere classified
CPT/HCPCS: 99214; G2211

== ENCOUNTER → 2025-02-16 15:08 | Outpatient (BNVA) | payer OTHER, SELFPAY | PROVIDERS: PCP Internal Medicine; Visit Provider Nurse Practitioner Family | DX: K21.9 Gastro-esophageal reflux disease without esophagitis (principal); K58.1 Irritable bowel syndrome with constipation; K59.04 Chronic idiopathic constipation; R14.0 Abdominal distension (gaseous); K76.0 Fatty (change of) liver, not elsewhere classified | CPT/HCPCS: 99212 ==

== ENCOUNTER 2025-04-11 10:47 | Outpatient (REF) | payer OTHER, SELFPAY ==
--- OUTSIDE RECORDS SUMMARY | 2025-04-11 12:10 | XMS_ITS | Data Portability ---
Author Organization [employer] [facility], [facility] Address [address] [place] [address] Care Team Providers Care Shoe Cutter Name Role Phone HIM CCA OTHER Assessment Encounter Date Assessment Date Assessment LastModified by Organization Details LastModified Time 11/23/2024 11/23/2024 I have reviewed and agree with the assessment and plan as documented by the compensation associate. I provided real time medical direction for this encounter and was immediately available to provide additional phone based assistance as needed. History as noted by compensation associate. Pt reports non productive cough x 3-4 [...] appears to be a viral URI with JIG HAND cough. No other concerning symptoms, pt appears [...] IA, respiratory specimen 2024 025 btils Main [facility], [address] [place] [address], [phone] 09:47:52 rapid flu (A+B) 2024 025 btils Main - [facility], [address] [place] [address], [phone] 09:47:52 Referral None recorded. Procedures None recorded. Surgeries None recorded. Imaging None recorded. Medication Orders None recorded. Patient TargetsNo targets recorded. Patient InstructionsNo instructions recorded. Reason for Referral None Reported. Results Created Date Observation Date Name Description Value Unit Range Abnormal Flag Note LastModifiedBy Organization Detail LastModifiedTime 11/23/1911/23/2024 rapid flu (A+B) Flu negati ve Not Available [facility] ed [address] [place] [address], [phone] 11/23/2024 09:47:32 11/23/1911/23/2024 rapid SARS CoV 2 Ag, QL IA, respi rator y speci men rapid SARS CoV 2 Ag, QL IA, respiratory specimen negati ve Not Available [address], [phone] 11/23/2024 09:47:29 Result Notes None recorded. Medical Equipment None Reported. Allergies Allergen ID Allergen Name Allergen Category Reaction Reaction Severity Criticality Documentation Date Start Date Code Code System Note Provider Name and Address Organization Details Recorded Time 14483 Cipro medicatio n Not available Not available Not available 11/22/2024 83325 3 RxNorm Not Available [facility] - production 5 20:00:02 49523 methadone medicatio n Not available Not available Not available 11/22/2024 6813 RxNorm Not Available [facility] 20:00:02 Medications [...] SNOMED-CT Code Diagnosis ICD10 Code Diagnosis Note [id number] Miguel Narvaez MD Main - [facility] [address] [place] [address] 11/23/2024 09:39:07 11/23/2024 11:07:26 Acute bronchitis 32351801 J20.9 Health Concerns Section Related Observation LastModified by Organization Detai ls LastModified Time None Recorded Concern Status LastModified by Organization Details LastModified Time None Recorded Advance Directives Directive None Recorded Payers Insurance Date Sequence Insurance Name Policy Number Policy Alvarez Covered Member ID Alvarez Member ID Guarantor Name 11/22/2024 1 [facility] - DOS ON OR AFTER 2023 - DUAL ELIGIBLE - [employer] OPTIONS AND ONE CARE (MEDICARE REPLACEMENT/AD VANTAGE - HMO) Marilynn Pena [id number] Marilynn Pena Notes Date Note Type Note Provider Name and Address Organization Details Recorded Time 11/23/2024 text/html This was a super vised home visit with compensation associate Jv Mayorga. CRC Nurse Triage Notes (Deb [...] and Past medical history for responding medic Electrical Maintenance Supervisor Organization Information for Jv Mayorga Legal Name: [employer].?Address: [address] [place] [address], Medical Director: Isrrael Suarez [facility] No.: [id number] Electrical Maintenance Supervisor POC Test Results from Tierra Jv - ALS Rapid influenza antigen (09:33:50)Flu: - Rapid COVID antigen (09:33:54)COVID: - ..................... ..................... ..................... ..................... ..................... ..................... ............... Electrical Maintenance Supervisor Note From Jv Mayorga: Dispatch to the call address for the female with a cough. Patient states Daniel night she started not feeling well complaining of generalized weakness, tired as well as nonproductive cough. She denies chest pain, difficulty breathing, shortness of breath, fevers, N/V/D. Patient states she has been taking jbgb-veb-twnxwpz medication? s with good effect. She advises [...] Aledema/swelling, rapid Covid and flu tests negative. [facility] consulted. Patient advised to continue taking OTC medication for symptoms. Red flags discussed. All times are approximate. ..................... ..................... ..................... ..................... ..................... ..................... ............... [facility] Consulted: Miguel Narvaez ..................... ..................... ..................... ..................... ..................... ..................... ............... Disposition: Fulfilled Miguel Narvaez MD [address] [facility],[address], [place], [address], [email or web address] 11/23/2024 09:54:28 OBGyn Episode No OBEpisode recorded.
[2025-04-11 13:25] LABS: MANUAL DIFF FLAG NO
[2025-04-11 13:30] LABS: Basophils Absolute Auto 0.1 X10*3/uL (0.0-0.2); Basophils Percent Auto 0.8 % (0-2); Eosinophils Absolute Auto 0.2 X10*3/uL (0.0-0.4); Eosinophils Percent Auto 2.5 % (0-4); Hemoglobin 13.2 g/dl (12.0-16.0); Imm Gran Abs Auto 0.03 X10*3/uL (0.00-0.03); Imm Gran Pct Auto 0.4 % (0.0-0.4); Lymphocytes Absolute Auto 2.5 X10*3/uL (1.2-4.9); Lymphocytes Percent Auto 30.4 % (20-40); Mean Corpuscular HGB Conc 33.8 g/dl (31.0-35.0); Mean Corpuscular Hemoglobin 29.1 pg (27.0-33.0); Mean Corpuscular Volume 86.1 fL (80.0-98.0); Mean Platelet Volume 11.5 fL (9.4-12.3); Monocytes Absolute Auto 0.5 X10*3/uL (0.1-1.2); Neutrophils Percent Auto 59.9 % (45-73); Platelet Count 318 X10*3/uL (160-400); Red Blood Count 4.53 X10*6/uL (4.20-5.50); Red Cell Distribution Width 13.5 % (11.0-16.0); White Blood Count 8.3 X10*3/uL (4.8-10.8)
[2025-04-11 13:44] LABS: Estimated Average Glucose 123 mg/dL; Hemoglobin A1c % 5.9 % (<6.0)
[2025-04-11 13:53] LABS: Alanine Aminotransferase 10 U/L (0-31); Albumin Level 4.2 g/dL (3.5-5.0); Alkaline Phosphatase 95 U/L (39-117); Anion Gap 12 (12-20); Aspartate Amino Transferase 15 U/L (5-31); Bilirubin Total 0.4 mg/dL (0.0-1.0); Blood Urea Nitrogen 16 mg/dL (9-16); Carbon Dioxide 23 mmol/L (22-29); Chloride 109 mmol/L (96-108); Cholesterol 237 mg/dL (<200); Estimated Glomerular Filt Rate > 60; Glucose Fasting 101 mg/dL (60-99); Glucose Random 100 mg/dL (60-115); HDL Cholesterol 46 mg/dL (>40); LDL Cholesterol Calculated 152 mg/dL (<100); Potassium 3.9 mmol/L (3.3-5.1); Sodium 140 mmol/L (135-145); Total Protein 6.9 g/dL (6.5-8.0); Triglycerides 195 mg/dL (<150)
[2025-04-11 14:14] LABS: TSH reflex Free T4 0.97 uIU/mL (0.32-4.0); Vitamin D 25-OH Total 64.6 ng/mL (>30)
[2025-04-11 14:21] LABS: Folate 4.6 ng/mL (> or = 4.0); Vitamin B12 725 pg/mL (200-900)
== END 2025-04-11 10:48 | disposition home or self-care (01) ==
LOC: HO.HMGCLDS 10:47
PROVIDERS: PCP Internal Medicine; Visit Provider Internal Medicine
DX: Z00.00 Encounter for general adult medical examination without abnormal findings (principal); R73.9 Hyperglycemia, unspecified; I10 Essential (primary) hypertension; E78.5 Hyperlipidemia, unspecified; E53.8 Deficiency of other specified B group vitamins; E55.9 Vitamin D deficiency, unspecified
CPT/HCPCS: 36415; 80053; 80061; 82306; 82607; 82746; 83036; 84443; 85025

== ENCOUNTER 2025-04-11 18:00 | Outpatient (REF) | payer OTHER, SELFPAY ==
[2025-04-12 13:51] LABS: Creatinine Urine 147.94 mg/dL
== END 2025-04-11 18:01 | disposition home or self-care (01) ==
LOC: HO.HMGCLNP 18:00
PROVIDERS: PCP Internal Medicine; Visit Provider Internal Medicine
DX: I10 Essential (primary) hypertension (principal); E53.8 Deficiency of other specified B group vitamins; E55.9 Vitamin D deficiency, unspecified
CPT/HCPCS: 82043; 82570

== ENCOUNTER 2025-04-13 13:07 | Outpatient (AMB) | payer OTHER, SELFPAY ==
[2025-04-13 13:24] VITALS: BP 108/64; PULSE 66; RESP 20; TEMP 37; O2SAT 94
--- NOTE | 2025-04-13 13:24 | A.OFFPC_ITS ---
Vital Signs 04/13/25 13:24 Height 5 ft 2 in BMI Reason not done Patient refused/unable BP 108/64 Blood Pressure Location Lt brachial Position Sitting Respiration 20 Pulse 66 Pulse Source Pulse Oximeter Temp 98.6 F Temp Source Oral Pulse Oximetry (%) 94 Oxygen Delivery Method Room Air Intake Visit Reasons: Annual PE Intake Note: Pt is here today for PE. Allergies procaine (From NOVOCAIN) Allergy (Severe, Verified 04/13/25 13:24) ANAPHYLAXIS methadone (METHADONE) Allergy (Intermediate, Verified 04/13/25 13:24) FLUID BUILD UP AROUND HEART ciprofloxacin (CIPROFLOXACIN) Adverse Reaction (Intermediate, Verified 04/13/25 13:24) REACTION WITH MUSCLE RELAXERS clindamycin (CLINDAMYCIN) Adverse Reaction (Intermediate, Verified 04/13/25 13:24) PALPITATIONS Medication List - Last Reconciled 04/13/25 by Faye Delgado MD amlodipine 10 mg PO DAILY [barrier cream As directed] [cleansing wipes As directed] cyanocobalamin (vitamin B-12) 1,000 mcg PO DAILY docusate sodium 100 mg PO BEDTIME esomeprazole magnesium 40 mg PO DAILY incontinence pad, liner, disp (Poise Pads) As directed incontinence pad, liner, disp As directed-medium absorbancy lisinopril 30 mg PO DAILY lorazepam 0.5 mg PO TID PRN ondansetron 4 mg PO Q6-8H PRN pregabalin 75 mg PO TID ropinirole 0.25 mg PO .QID sennosides (senna) 8.6 mg PO BEDTIME tizanidine 4 mg PO Q8H trazodone 50 mg PO ONCE [Washable bed pad As directed] zolpidem 5 mg PO BEDTIME PRN Tobacco use date assessed: 04/13/25 Dental Screening Dental Screen Date: 04/13/25 Did you have a dental visit in the last 12 months?: Yes Did you have a dental problem in the last 6 months where you did not have access to dental care?: No Was dental information given to patient?: Patient has dentist HPI Annual PE HPI Details Patient presents for physical. Hypertension is controlled on current medications. Patient has been decreasing caloric intake trying to lose weight unsuccessfully for over 6 months. She is interested in trying GLP 1 agonist to facilitate weight loss. Patient is not a candidate for phentermine because of hypertension. [facility] Medical History (Updated 04/13/25 @ 14:29 by Faye Delgado MD) Psoriasis Hyperglycemia Annual physical exam GI (gastrointestinal bleed) Diverticulitis Abdominal pain Vitamin B12 deficiency Osteoarthritis of right knee Fibromyalgia Lumbar degenerative disc disease Cervical radiculopathy Depression Vitamin D deficiency HTN (hypertension) Hyperlipidemia Surgical History Hx of colonoscopy H/O Spinal surgery Family History Mother Lupus (systemic lupus erythematosus) Rheumatoid arthritis Social History Housing: House Alcohol intake: current Alcohol intake frequency: does not drink Patient Tobacco Use Status: Former Tobacco user e-Cigarette/Vaping Use: Currently Using Second Hand Smoke Exposure: No service: No Current occupational status: disabled Cognitive needs: No Hearing needs: No Vision needs: No Questionnaire PHQ-9 Over the last 2 weeks, how often have you been bothered by any of the following problems? 1. Little interest or pleasure in doing things: nearly every day 2. Feeling down, depressed, or hopeless: more than half the days 3. Trouble falling or staying asleep, or sleeping too much: nearly every day 4. Feeling tired or having little energy: nearly every day 5. Poor appetite or overeating: several days 6. Feeling bad about yourself - or that you are a failure or have let yourself or your family down: nearly every day 7. Trouble concentrating on things, such as reading the newspaper or watching television: nearly every day 8. Moving or speaking so slowly that other people could have noticed. Or the opposite - being so fidgety or restless that you have been moving around a lot more than usual: several days 9. Thoughts that you would be better off or of hurting yourself in some way: nearly every day Total score: 22 Depression Screening Interpretation: Positive (Patient is established with a psychiatrist and therapist ) Depression Screening Follow-up: Existing condition and In treatment Depression Screening Done: Yes 35478 - PHQ-9 Billing: Yes Source: Developed by Drs. Miles L. Ramonita Torres Kurt Kroenke and colleagues, with an educational brittney from [employer]. Thrive Questionnaire Date Thrive assessed: 04/13/25 I am a: Patient What is your living situation today?: I have a steady place to live Within the past 12 months, did the food you bought not last and you didn't have the money to get more?: Sometimes True Within the past 12 months, did you worry whether your food would run out before you got money to buy more?: Sometimes True Do you have trouble paying for medicines?: Yes Do you have trouble getting transportation to medical appointments?: No Do you have trouble paying your heating and electricity bill?: Yes Do you have trouble taking care of your child, family member or friend?: No Do you have trouble with day-to-day activities such as bathing, preparing meals, shopping, managing finances, etc.?: Yes Are you currently unemployed and looking for a job?: No Are you interested in more education?: No THRIVE Score: 3 AUDIT C Alcohol Use Questionnaire (AUDIT-C) 1. How often do you have a drink containing alcohol?: Never 3. How often do you have six or more drinks on one occasion?: Never Total Score: 0 HENRRY-7 AMB Questionnaire HENRRY-7 Date HENRRY - 7 assessed: 04/13/25 Feeling nervous, anxious, or on edge: 2 = More than half the days Not being able to stop or control worryin = More than half the days Worrying too much about different things: 2 = More than half the days Trouble relaxin = Several days Being so restless that it is hard to sit still: 3 = Nearly every day Becoming easily annoyed or irritable: 2 = More than half the days Feeling afraid as if something awful might happen: 1 = Several days Total HENRRY-7 score (0-4 normal; 5-9 mild; 10-14 moderate; 15-21 severe): 13 Source: Developed by Drs. Miles Torres, Robert Nath and colleagues, with an educational brittney from [employer]. HENRRY-7 Assessment Billing HENRRY-7 Assessment Tool: HENRRY-7 Assessment 03724 Review of Systems Const All systems reviewed & are unremarkable except as noted in HPI and below Eyes Reports no additional complaints ENT Reports no additional complaints Card Reports no additional complaints Resp Reports no additional complaints GI Reports no additional complaints Reports no additional complaints Physical exam (Primary Care) Vital Signs: Last Vital Signs Temp 98.6 F 04/13/25 13:24 Pulse 66 04/13/25 13:24 Resp 20 04/13/25 13:24 BP 108/64 04/13/25 13:24 Pulse Ox 94 04/13/25 13:24 Oxygen Delivery Method Room Air 04/13/25 13:24 Tobacco/Smoking Status: Tobacco use Status Tobacco use date assessed 04/13/25 04/13/25 13:32 Patient Tobacco Use Status Former Tobacco user 04/13/25 13:32 e-Cigarette/Vaping Use Currently Using 04/13/25 13:32 PHQ-9: PHQ-9 Score PHQ-9: Total score 22 04/13/25 13:32 Depression Screening Interpretation: Positive (Patient is established with a psychiatrist and therapist ) Depression Screening Follow-up: Existing condition and In treatment Thrive Assessment: Date of Thrive Assessment Date Thrive assessed 04/13/25 04/13/25 13:32 Const General: no acute distress HENMT Head: Yes normal to inspection Ears: TM's normal bilaterally Mouth: Normal oral and palatal mucosa present Eyes General: appearance normal, both eyes and all related structures Neck Neck: Yes no lymphadenopathy and Yes supple Resp Effort & Inspection: normal respiratory effort Auscultation: clear to auscultation bilaterally Cardio Rhythm: regular rhythm Heart sounds: S1 normal heart sound present and S2 normal heart sound present GI Inspection: Yes normal to inspection Palpation (GI): Soft to palpation Percussion: Yes normal to percussion Auscultation: normal bowel sounds Coding Level of Care Code Est Pt Prev Care 40-64y(32042) Diagnoses Mammogram declined Z53.20 Depression F32.9 HTN (hypertension) I10 Hx of colonoscopy Z98.890 Annual physical exam Z00.00 Additional Codes HENRRY-7 Assessment Billing - HENRRY-7 Assessment Tool: HENRRY-7 Assessment 90796 ([id number]) PHQ-9 - 45442 - PHQ-9 Billing: Yes ([id number]) Assessment & Plan Assessment & Plan (1) Mammogram declined: Comment: 06/17, 03/2025 Code(s): Z53.20 - Procedure and treatment not carried out because of patient's decision for unspecified reasons Category: Medical Plan: Patient will call Vinay to schedule an appointment for mammogram (2) Depression: Comment: f/u psychiatrist Dr. Parada Code(s): F32.9 - Major depressive disorder, single episode, unspecified Category: Medical Plan: Follow-up with the Psychiatry (3) HTN (hypertension): Code(s): I10 - Essential (primary) hypertension Category: Medical Plan: Continue current medications (4) Hx of colonoscopy: Comment: 06/16 Dr. Briones, moderate hemorrhoids and diverticulosis, hyperplastic polyps Code(s): Z98.890 - Other specified postprocedural states Category: Surgical Plan: Up-to-date with colonoscopy (5) Annual physical exam: Code(s): Z00.00 - Encounter for general adult medical examination without abnormal findings Category: Medical Plan: Well-balanced diet regular physical activity weight loss discussed with the patient. She will check with her insurance coverage for GLP 1 agonist Orders: Orders Comprehensive [place]. Panel Fast 1 Year E53.8 - Deficiency of other specified B group vitamins, E55.9 - Vitamin D deficiency, unspecified, E78.5 - Hyperlipidemia, unspecified, I10 - Essential (primary) hypertension, R73.9 - Hyperglycemia, unspecified Complete Blood Count Auto Diff 1 Year E53.8 - Deficiency of other specified B group vitamins, E55.9 - Vitamin D deficiency, unspecified, E78.5 - Hyperlipidemia, unspecified, I10 - Essential (primary) hypertension, R73.9 - Hyperglycemia, unspecified Lipid Panel 1 Year E53.8 - Deficiency of other specified B group vitamins, E55.9 - Vitamin D deficiency, unspecified, E78.5 - Hyperlipidemia, unspecified, I10 - Essential (primary) hypertension, R73.9 - Hyperglycemia, unspecified Vitamin B12 and Folate 1 Year E53.8 - Deficiency of other specified B group vitamins, E55.9 - Vitamin D deficiency, unspecified, E78.5 - Hyperlipidemia, unspecified, I10 - Essential (primary) hypertension, R73.9 - Hyperglycemia, unspecified TSH reflex Free T4 1 Year E53.8 - Deficiency of other specified B group vitamins, E55.9 - Vitamin D deficiency, unspecified, E78.5 - Hyperlipidemia, unspecified, I10 - Essential (primary) hypertension, R73.9 - Hyperglycemia, unspecified Vitamin D 25-OH Total 1 Year E53.8 - Deficiency of other specified B group vitamins, E55.9 - Vitamin D deficiency, unspecified, E78.5 - Hyperlipidemia, unspecified, I10 - Essential (primary) hypertension, R73.9 - Hyperglycemia, unspecified Hemoglobin A1c Today R73.9 - Hyperglycemia, unspecified Medications: New ciclopirox 8% 1 appl topical BEDTIME 6.6 mL 2RF 4 weeks cholecalciferol (vitamin D3) 250 mcg PO DAILY 90 tabs 1RF Refilled amlodipine 10 mg PO DAILY 90 tabs 3RF lisinopril 30 mg PO DAILY 90 tabs 3RF
--- OUTSIDE RECORDS SUMMARY | 2025-04-13 15:01 | XMS_ITS | Data Portability ---
Author Organization [facility], [facility] Address [address] [place] [phone] Care Team Providers Care Punch Press Operator Helper Name Role Phone HIM CCA OTHER Assessment Encounter Date Assessment Date Assessment LastModified by Organization Details LastModified Time 11/23/2024 11/23/2024 I have reviewed and agree with the assessment and plan as documented by the diving instructor. I provided real time medical direction for this encounter and was immediately available to provide additional phone based assistance as needed. History as noted by diving instructor. Pt reports non productive cough x 3-4 [...] appears to be a viral URI with TUNGSTEN REFINER cough. No other concerning symptoms, pt appears [...] IA, respiratory specimen [address] [facility], [address] [place] [address], [phone] 09:47:52 rapid flu (A+B) 2024 025 btils Main - [facility], [address] [place] [address], [phone] 09:47:52 Referral None recorded. Procedures None recorded. Surgeries None recorded. Imaging None recorded. Medication Orders None recorded. Patient TargetsNo targets recorded. Patient InstructionsNo instructions recorded. Reason for Referral None Reported. Results Created Date Observation Date Name Description Value Unit Range Abnormal Flag Note LastModifiedBy Organization Detail LastModifiedTime 11/23/1911/23/2024 rapid flu (A+B) Flu negati ve Not Available [facility] ed [address] [place] [address], [phone] 11/23/2024 09:47:32 11/23/1911/23/2024 rapid SARS CoV 2 Ag, QL IA, respi rator y speci men rapid SARS CoV 2 Ag, QL IA, respiratory specimen negati ve Not Available [address], [phone] 11/23/2024 09:47:29 Result Notes None recorded. Medical Equipment None Reported. Allergies Allergen ID Allergen Name Allergen Category Reaction Reaction Severity Criticality Documentation Date Start Date Code Code System Note Provider Name and Address Organization Details Recorded Time 16749 Cipro medicatio n Not available Not available Not available 11/22/2024 90001 3 RxNorm Not Available [facility] - production 5 20:00:02 44267 methadone medicatio n Not available Not available Not available 11/22/2024 [address] Rx[address] [facility] 20:[facility]:02 Medications Name Sig [...] SNOMED-CT Code Diagnosis ICD10 Code Diagnosis Note [id number] Miguel Narvaez MD Main - [facility] [address] [place] [phone] 11/23/2024 09:39:07 11/23/2024 11:07:26 Acute bronchitis [id number] J20.9 Health Concerns Section Related Observation LastModified by Organization Detai ls LastModified Time None Recorded Concern Status LastModified by Organization Details LastModified Time None Recorded Advance Directives Directive None Recorded Payers Insurance Date Sequence Insurance Name Policy Number Policy Alvarez Covered Member ID Alvarez Member ID Guarantor Name 11/22/2024 1 [facility] - DOS ON OR AFTER 2023 - DUAL ELIGIBLE - INTERMEDIATE OPTIONS AND ONE CARE (MEDICARE REPLACEMENT/AD VANTAGE - HMO) Marilynn Pena [id number] Marilynn Pena Notes Date Note Type Note Provider Name and Address Organization Details Recorded Time 11/23/2024 text/html This was a super vised home visit with diving instructor Jv Mayorga. CRC Nurse Triage Notes (Deb Woo - RN): Patient Reports: CoughDenies: Increased work of breathing/labored with or without fever Unable to speak in full sentences without distress Discoloration of skin -cyanosis Needs to sleep sitting up, can t catch breath Shortness of breath in [...] and Past medical history for responding medic Supervisor Filter Assembly Organization Information for Jv Mayorga Legal Name: [employer]. Address: [address] [place] [id number], USMedical Director: Isrrael [facility] No.: [id number] Supervisor Filter Assembly POC Test Results from Jv Mayorga - ALS Rapid influenza antigen (09:33:50)Flu: - Rapid COVID antigen (09:33:54)COVID: - ..................... ..................... ..................... ..................... ..................... ..................... ............... Supervisor Filter Assembly Note From Jv Mayorga: Dispatch to the call address for the female with a cough. Patient states Friday night she started not feeling well complaining of generalized weakness, tired as well as nonproductive cough. She denies chest pain, difficulty breathing, shortness of breath, fevers, N/V/D. Patient states she has been taking ydul-zqk-hcsmstl medication s with good effect. She advises she wanted to have her lungs listened to as she is prone to pneumonia. She has been able to maintain PO hydration and nutrition without issues. Patient was found sitting in living room chair, CAOX4, airway open in patent, breathing non-labored, able to speak in full sentences, JVD, lung sounds CTA, skin, PWD, good skin turgor, mucus membranes pink, and moist, +CMSx4, ABD soft non-tender /non-distended, a febrile, Aledema/swelling, rapid Covid and flu tests negative. C consulted. Patient advised to continue taking OTC medication for symptoms. Red flags discussed. All times are approximate. ..................... ..................... ..................... ..................... ..................... ..................... ............... [facility] [place] Consulted: Miguel Narvaez ..................... ..................... ..................... ..................... ..................... ..................... ............... Disposition: Fulfilled Miguel Narvaez MD [address] [facility],[address] [facility], [place], [phone], [employer] 11/23/2024 09:54:28 OBGyn Episode No OBEpisode recorded.
== END 2025-04-13 14:27 | disposition home or self-care (01) ==
LOC: HO.HMCC 13:08
PROVIDERS: PCP Internal Medicine; Visit Provider Internal Medicine
DX: Z53.20 Procedure and treatment not carried out because of patient's decision for unspecified reasons (principal); F32.9 Major depressive disorder, single episode, unspecified; I10 Essential (primary) hypertension; Z98.890 Other specified postprocedural states; Z00.00 Encounter for general adult medical examination without abnormal findings

== ENCOUNTER → 2025-04-13 13:07 | Outpatient (BNVA) | payer OTHER, SELFPAY | PROVIDERS: PCP Internal Medicine; Visit Provider Internal Medicine | DX: Z00.00 Encounter for general adult medical examination without abnormal findings (principal); E66.01 Morbid (severe) obesity due to excess calories; I10 Essential (primary) hypertension; F32.9 Major depressive disorder, single episode, unspecified; Z98.890 Other specified postprocedural states; Z68.41 Body mass index [BMI] 40.0-44.9, adult; R73.9 Hyperglycemia, unspecified | CPT/HCPCS: 96127; 99396 ==

== ENCOUNTER 2025-05-26 14:37 | Outpatient (AMB) | payer OTHER, SELFPAY ==
[2025-05-26 14:39] VITALS: BP 126/70; BMI 40.4
--- NOTE | 2025-05-26 14:39 | A.OFFVIS_ITS ---
Vital Signs 05/26/25 14:39 Height 5 ft 2 in Weight 221 lb BMI 40.4 BP 126/70 Intake Visit Reasons: New patient Abnormal cytological finding Central Supply Nurse Required: No Information Interpreted: non-clinical & clinical Accompanied by: Self / Same As Patient Allergies procaine (From NOVOCAIN) Allergy (Severe, Verified 05/26/25 14:42) ANAPHYLAXIS methadone (METHADONE) Allergy (Intermediate, Verified 05/26/25 14:42) FLUID BUILD UP AROUND HEART ciprofloxacin (CIPROFLOXACIN) Adverse Reaction (Intermediate, Verified 05/26/25 14:42) REACTION WITH MUSCLE RELAXERS clindamycin (CLINDAMYCIN) Adverse Reaction (Intermediate, Verified 05/26/25 14:42) PALPITATIONS Post menopausal: Yes HPI Comments Details: Presenting for annual exam. No complaints. Last Pap/HPV was 12 years ago, no records available Last Mammogram was BI-RADS 1 in 11/19 Last Colonoscopy was done in 06/16, the recommendation was to repeat in 3 years [facility] Medical History Pre-diabetes Psoriasis Hyperglycemia Annual physical exam GI (gastrointestinal bleed) Diverticulitis Abdominal pain Vitamin B12 deficiency Osteoarthritis of right knee Fibromyalgia Lumbar degenerative disc disease Cervical radiculopathy Depression Vitamin D deficiency HTN (hypertension) Hyperlipidemia Surgical History Hx of colonoscopy H/O Spinal surgery Family History Mother Lupus (systemic lupus erythematosus) Rheumatoid arthritis Uterus cancer Maternal Grandmother Uterus cancer Father HTN (hypertension) Social History Housing: House Alcohol intake: current Alcohol intake frequency: does not drink Patient Tobacco Use Status: Former Tobacco user e-Cigarette/Vaping Use: Currently Using Second Hand Smoke Exposure: No service: No Current occupational status: disabled Cognitive needs: No Hearing needs: No Vision needs: No Review of Systems Const All systems reviewed & are unremarkable except as noted in HPI and below Card Reports as per HPI Resp Reports as per HPI GI Reports as per HPI and Reports no additional complaints Reports as per HPI Physical Exam Vital Signs: Last Vital Signs BP 126/70 05/26/25 14:39 BMI result Body Mass Index 40.4 Const General: cooperative, healthy appearing and comfortable Chest Chest palpation & inspection: normal inspection of the chest and normal palpation of entire chest wall Breast/axilla inspection: normal inspection of the breasts and normal inspection of the axillae Breast/axilla palpation: normal palpation of the breasts, normal palpation of the axillae and no axillary lymphadenopathy Resp Effort & Inspection: normal respiratory effort Auscultation: clear to auscultation bilaterally Percussion: percussion normal Cardio Palpation: normal PMI Rate: regular rate Rhythm: regular rhythm Heart sounds: no murmurs and no rubs Peripheral pulses: Peripheral pulses 2+ throughout GI Inspection: Yes normal to inspection Palpation (GI): Soft to palpation, nontender, no guarding, not rigid and No he patosplenomegaly present Percussion: Yes normal to percussion Auscultation: normal bowel sounds Rectal Exam - Female: deferred General: Yes bladder normal to palpation External Female Exam: No lesion Speculum Exam - Vagina: normal appearance of the vagina, normal palpation, normal vaginal discharge and not erythematous Speculum Exam - Cervix: normal appearance of the cervix and normal palpation Bimanual exam- vagina & uterus: normal bimanual exam, normal palpation, uterine size normal, bladder normal to palpation, consistency normal and normal palpation Bimanual Exam- Adnexa, other: normal adnexae, no masses and no tenderness Assessment & Plan Assessment & Plan (1) Well woman exam: Code(s): Z01.419 - Encounter for gynecological examination (general) (routine) without abnormal findings Category: Medical Plan: Co testing done. Counseled the patient about the recommended dietary allowance of 1200 mg of Calcium & 600 IU of vitamin D. Mammogram ordered. The patient is in the process of scheduling with GI her screening colonoscopy . The patient was instructed to perform monthly self-breast exams and schedule annual exam in a year. All questions answered and the patient verbalized understanding. Orders: Orders MM tomosynthesis screening BI Today Z12.31 - Encounter for screening mammogram for malignant neoplasm of breast Coding Level of Care Code New Pt Prev Care 40-64y(41077) Diagnoses Well woman exam Z01.419
--- OUTSIDE RECORDS SUMMARY | 2025-05-26 14:42 | XMS_ITS | Clinical Summary ---
Author Organization [facility] Address [address] [place] [address] Phone Care Team Providers Care Dehairing Machine Tender Name Role Phone Faye Delgado MD Primary Care Provider [phone] Allergies Active Allergy Reactions Criticality Noted Date [...] of 1 - PCV) 016 Influenza Vaccine (#1) [address] [facility] ([id number]) [facility] ([id number]) Care Teams Dehairing Machine Tender Relationship Specialty Start Date End Date Faye Delgado MD [address] [place] [address] PCP - General Internal Medicine 07/25/21
== END 2025-05-26 15:12 | disposition home or self-care (01) ==
PROVIDERS: PCP Internal Medicine; Visit Provider Obstetrics & Gynecology
DX: Z01.419 Encounter for gynecological examination (general) (routine) without abnormal findings (principal)
CPT/HCPCS: 99386; 99459

== ENCOUNTER 2025-05-26 14:37 | Outpatient (REF) | payer OTHER, SELFPAY | END 2025-05-26 14:38 | disposition home or self-care (01) | LOC: HO.LNP 14:37 | PROVIDERS: PCP Internal Medicine; Visit Provider Obstetrics & Gynecology | DX: Z01.419 Encounter for gynecological examination (general) (routine) without abnormal findings (principal); Z12.31 Encounter for screening mammogram for malignant neoplasm of breast | CPT/HCPCS: 87626; 88175; 99386 ==

== ENCOUNTER 2025-06-03 10:08 | Outpatient (REF) | payer OTHER, SELFPAY ==
--- NOTE | ~2025-06-03 | US_ITS ---
EXAMINATION: US ABDOMEN LIMITED WITH LIVER ELASTOGRAPHY CLINICAL INFORMATION: Fatty liver. COMPARISON: 06/09/2024. TECHNIQUE: Real-time imaging of the abdominal viscera. Noninvasive ultrasound liver fibrosis assessment is performed using Efren ElastPQ point quantification shear wave elastography (pSWE) with a 5 MHz transducer. Multiple elastography samples are obtained. FINDINGS: PANCREAS: The visualized pancreatic head and body are normal in appearance. The remainder of the pancreas is obscured from visualization by the overlying bowel gas. LIVER: The liver demonstrates increased size, normal contour and diffusely increased echogenicity. No focal lesion. There is intrahepatic ductal dilatation present. The right lobe measures 20.5 cm in length. The left lobe measures 10.6 cm in length. Shear wave liver elastography median stiffness is 1.77 m/s (reference: normal median stiffness is 1.3 m/s or less). (Previously measured 1.92) IQR/median stiffness to assess sampling precision is 0.12 (reference: good quality data set is IQR/median stiffness of 0.15 or less). GALLBLADDER: Gallbladder is surgically absent. COMMON BILE DUCT: Mildly increased in caliber measuring 1.0 cm in diameter. This is likely reservoir effect from prior cholecystectomy. RIGHT KIDNEY: No hydronephrosis. No renal calculi or focal parenchymal lesions. The kidney measures 12.6 cm in maximum dimension. FREE FLUID: None. US/US abdomen villalobos w elastography IMPRESSION: 1. Mild hepatomegaly with diffusely increased echogenicity in keeping with fatty infiltration and/or hepatocellular disease. No suspicious lesion. 2. Liver elastography: Measurements are suggestive of compensated advanced chronic liver disease but need further test for confirmation. Liver stiffness measurement is without significant change from prior exam (change under 10%). 3. Mild intra and extra hepatic biliary dilatation, most likely reservoir effect from cholecystectomy. 4. Cholecystectomy. REFERENCE: Society of Radiologists in Ultrasound Liver Stiffness Thresholds (2019): LIVER STIFFNESS THRESHOLDS: *Liver Stiffness equal or less than 1.3 m/s: High probability of being normal. *Liver Stiffness less than 1.7 m/s: In the absence of other known clinical signs, rules out compensated advanced chronic liver disease. *Liver Stiffness 1.7-2.1 m/s: Suggestive of compensated advanced chronic liver disease but need further test for confirmation. *Liver Stiffness over 2.1 m/s: Rules in compensated advanced chronic liver disease. *Liver Stiffness over 2.4 m/s: Suggestive of clinically significant portal hypertension. QUALITY OF DATA SET: *IQR/Median value equal or less than 0.15 implies a quality data set. *IQR/Median value over 0.15 implies a poor quality data set. SIGNIFICANT CHANGE FROM PRIOR EXAM: Significant change if liver stiffness measurement is 10% or greater from prior exam. OTHER CONSIDERATIONS: The stage of liver fibrosis may be overestimated in the setting of acute hepatitis, liver inflammation, elevated liver function tests, hepatic vascular congestion, obstructive cholestasis, non-fasting state, and infiltrative diseases such as amyloidosis and lymphoma. In some patients with NAFLD, the liver stiffness thresholds for compensated advanced chronic liver disease may be lower. In causes other than viral hepatitis and NAFLD, liver stiffness thresholds are not well established. Electronically signed by: Alexander Noguera MD 06/03/2025 11:03 AM EDT
--- OUTSIDE RECORDS SUMMARY | 2025-06-03 10:12 | XMS_ITS | Clinical Summary ---
Author Organization [facility] Address [address] [place] [address] Phone Care Team Providers Care Real Estate Assistant Name Role Phone Faye Delgado MD Primary Care Provider [phone] Allergies Active Allergy Reactions Criticality Noted Date [...] PCV) 016 Influenza Vaccine (#1) 2025 Insurance [facility] ([id number]) [facility] ([id number]) Care Teams Real Estate Assistant Relationship Specialty Start Date End Date Faye Delgado MD [address] [place] [address] PCP - General Internal Medicine 07/25/21
== END 2025-06-03 10:09 | disposition home or self-care (01) ==
LOC: HO.US 10:08
PROVIDERS: PCP Internal Medicine; Visit Provider Nurse Practitioner Family
DX: K76.0 Fatty (change of) liver, not elsewhere classified (principal)
CPT/HCPCS: 76705; 76981

== ENCOUNTER → 2025-06-03 10:13 | Outpatient (BNV) | payer OTHER, SELFPAY | PROVIDERS: PCP Internal Medicine; Visit Provider Radiology Diagnostic Radiology | DX: R16.0 Hepatomegaly, not elsewhere classified (principal) | CPT/HCPCS: 76705 ==

== ENCOUNTER 2025-09-05 12:37 | Outpatient (AMB) | payer OTHER, SELFPAY ==
[2025-09-05 13:00] VITALS: BP 96/62; PULSE 48; TEMP 36.6; O2SAT 95
--- NOTE | 2025-09-05 13:00 | MHC.OFFWIV ---
Intake Vital Signs 09/05/25 13:00 Height 5 ft 2 in BMI Reason not done Patient refused/unable BP 96/62 Blood Pressure Location Lt brachial Pulse 48 L Pulse Source Pulse Oximeter Temp 97.9 F Temp Source Oral Pulse Oximetry (%) 95 Oxygen Delivery Method Room Air Comment pt in w/c- unsteady on feet- wt not obtained. Low BP-provider aware. Intake Visit Reasons: EP-uti, sob, body weakness Intake Note: presents with severe body weakness, SOB with physical exertion, urine urgency with burning and little output Patient Tobacco Use Status: Former Tobacco user Allergies procaine (From NOVOCAIN) Allergy (Severe, Verified 09/05/25 13:03) ANAPHYLAXIS methadone (METHADONE) Allergy (Intermediate, Verified 09/05/25 13:03) FLUID BUILD UP AROUND HEART ciprofloxacin (CIPROFLOXACIN) Adverse Reaction (Intermediate, Verified 09/05/25 13:03) REACTION WITH MUSCLE RELAXERS clindamycin (CLINDAMYCIN) Adverse Reaction (Intermediate, Verified 09/05/25 13:03) PALPITATIONS Do you need a note to return to daycare/school/sports/work: No HPI HPI Comments History of Present Illness Details 59-year-old female presents with complaints of generalized body weakness, fatigue, dizziness, headaches, shortness of breath (SOB), dysuria, and urinary urgency. Denies fever, chills, nausea, or vomiting. Unable to provide a urine sample at this visit. Reports limited mobility; currently using a wheelchair due to weakness. [facility] Medical History (Updated 09/05/25 @ 13:22 by Aida Carpio NP) Dehydration symptoms Pre-diabetes Psoriasis Hyperglycemia Annual physical exam GI (gastrointestinal bleed) Diverticulitis Abdominal pain Vitamin B12 deficiency Osteoarthritis of right knee Fibromyalgia Lumbar degenerative disc disease Cervical radiculopathy Depression Vitamin D deficiency HTN (hypertension) Hyperlipidemia Surgical History Hx of colonoscopy H/O Spinal surgery Family History Mother Lupus (systemic lupus erythematosus) Rheumatoid arthritis Uterus cancer Maternal Grandmother Uterus cancer Father HTN (hypertension) Social History Housing: House Alcohol intake: current Alcohol intake frequency: does not drink Patient Tobacco Use Status: Former Tobacco user e-Cigarette/Vaping Use: Currently Using Second Hand Smoke Exposure: No service: No Current occupational status: disabled Cognitive needs: No Hearing needs: No Vision needs: No Review of Systems Const All systems reviewed & are unremarkable except as noted in HPI and below Physical Exam Vital Signs: Last Vital Signs Temp 97.9 F 09/05/25 13:00 Pulse 48 L 09/05/25 13:00 BP 96/62 09/05/25 13:00 Pulse Ox 95 09/05/25 13:00 Oxygen Delivery Method Room Air 09/05/25 13:00 Const Other: Patient appears weak and fatigued, wheelchair-bound. General: in distress; No comfortable Nutritional Appearance: obese Orientation/consciousness: patient oriented x3 Limitations: wheelchair Resp Effort & Inspection: normal respiratory effort Auscultation: clear to auscultation bilaterally Cardio Rate: bradycardic Heart sounds: S1 normal heart sound present and S2 normal heart sound present Other: Unable to provide Urine sample Neuro General: patient oriented x3 and moves all extremities Psych Speech and movement: Normal speech and movement present Assessment & Plan Assessment & Plan (1) Dehydration symptoms: Code(s): R63.8 - Other symptoms and signs concerning food and fluid intake Plan: Generalized weakness and fatigue ? etiology unclear; electrolyte imbalance, infection, or Dehydration. Dizziness and headaches ? may be related to weakness, dehydration, or underlying cardiovascular/neurological issues. SOB ? cardiac or pulmonary etiology; needs further evaluation. Dysuria and urgency ? possible urinary tract infection (UTI), though urine sample not available for confirmation. Pt unable to Urinate. Advised Patient to go ED for further evaluation and Treatment of her symptoms. 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 Coding Level of Care Code Est Pt Level 4 (59500) Diagnoses Dehydration symptoms R63.8 Time Spent (min) 20
--- OUTSIDE RECORDS SUMMARY | 2025-09-05 14:45 | XMS_ITS | Clinical Summary ---
Author Organization [facility] Address 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
--- OUTSIDE RECORDS SUMMARY | 2025-09-05 14:45 | XMS_ITS | Data Portability ---
Author Organization [email or web address] Address [address] [place] [phone] Care Team Providers Care Automatic Spinning Lathe Operator Name Role Phone HIM CCA OTHER Assessment Encounter Date Assessment Date Assessment LastModified by Organization Details LastModified Time 11/23/2024 11/23/2024 I have reviewed and agree with the assessment and plan as documented by the tiltrotor crew chief. I provided real time medical direction for this encounter and was immediately available to provide additional phone based assistance as needed. History as noted by tiltrotor crew chief. Pt reports non productive cough x 3-4 [...] appears to be a viral URI with DIALYSIS TECH cough. No other concerning symptoms, pt appears [...] respiratory specimen 2024 025 btils Main - [facility], [address] [place] [address], [phone] 09:47:52 rapid flu (A+B) 2024 025 btils Main - [facility], [address] [place] [address], [phone] 09:47:52 Referral None recorded. Procedures None recorded. Surgeries None recorded. Imaging None recorded. Medication Orders None recorded. Patient TargetsNo targets recorded. Patient InstructionsNo instructions recorded. Reason for Referral None Reported. Results Created Date Observation Date Name Description Value Unit Range Abnormal Flag Note LastModifiedBy Organization Detail LastModifiedTime 11/23/1911/23/2024 rapid flu (A+B) Flu negati ve Not Available [facility] ed [address] [place] [address], [phone] 11/23/2024 09:47:32 11/23/1911/23/2024 rapid SARS CoV 2 Ag, QL IA, respi rator y speci men rapid SARS CoV 2 Ag, QL IA, respiratory specimen negati ve Not Available [address], [address] 11/23/2024 09:47:29 Result Notes None recorded. Medical Equipment None Reported. Allergies Allergen ID Allergen Name Allergen Category Reaction Reaction Severity Criticality Documentation Date Start Date Code Code System Note Provider Name and Address Organization Details Recorded Time 26102 Cipro medicatio n Not available Not available Not available 11/22/2024 74343 3 RxNorm Not Available [facility] - production 5 20:00:02 22886 methadone medicatio n Not available Not available [...] in Arterial blood by Pulse oximetry Systolic And Diastolic Provider Name and Address Organization Details Last Updated DateTime 5 99 [degF] 16 /min 63 /min 96 % 96 % 118/72 mm[Hg] Not Available [facility] - production 5 [...] Diagnosis SNOMED-CT Code Diagnosis ICD10 Code Diagnosis IMO Codes Diagnosis Note [id number] Miguel Narvaez MD Main - [address] [phone] 11/23/2024 09:39:07 11/23/2024 11:07:26 Acute bronchitis 28839540 J20.9 Health Concerns Section Related Observation LastModified by Organization Detai ls LastModified Time None Recorded Concern Status LastModified by Organization Details LastModified Time None Recorded Advance Directives Directive None Recorded Payers Insurance Date Sequence Insurance Name Policy Number Policy Alvarez Covered Member ID Alvarez Member ID Guarantor Name 11/22/2024 1 [facility] - DOS ON OR AFTER 2023 - DUAL ELIGIBLE - JAIL OPTIONS AND ONE CARE (MEDICARE REPLACEMENT/AD VANTAGE - HMO) Marilynn Pena [id number] Marilynn Pena Notes Date Note Type Note Provider Name and Address Organization Details Recorded Time 11/23/2024 text/html ROS as noted in the HPI This was a supervised home visit with tiltrotor crew chief Jv Mayorga. 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 A ddress: [address] [place] [id number], USMedical Director: Isrrael Suarez [facility] No.: [id number] Boiler Tube Reamer POC Test Results from Tierra[facility]v benton - ALS Rapid influenza antigen (09:33:50)Flu: - Rapid COVID antigen (09:33:54)COVID: - ..................... ..................... ..................... ..................... ..................... ..................... ............... Boiler Tube Reamer Note From Tierra Jv: Dispatch to the call address for the female with a cough. Patient states Friday night she started not feeling well complaining of generalized weakness, tired as well as nonproductive cough. She denies chest pain, difficulty breathing, shortness of breath, fevers, N/V/D. Patient states she has been taking yrzw-tme-tdyjemm medication s with good effect. She advises [...] Aledema/swelling, rapid Covid and flu tests negative. [facility] consulted. Patient advised to continue taking OTC medication for symptoms. Red flags discussed. All times are approximate. ..................... ..................... ..................... ..................... ..................... ..................... ............... [facility] Consulted: Miguel Narvaez ..................... ..................... ..................... ..................... ..................... ..................... ............... Disposition: Fulfilled Miguel Narvaez MD [address] [facility],[address] [facility], [place], [phone], [employer] - Kart[employer]LAURY LABOY 11/23/2024 09:54:28 OBGyn Episode No OBEpisode recorded.
--- OUTSIDE RECORDS SUMMARY | 2025-09-05 14:45 | XMS_ITS | Encounter Summary ---
Author Organization [facility] Address [address] [facility] [address] [address] [place] [address] Phone Care Team Providers Care Fulfillment Representative Name Role Phone Faye Delgado MD Primary Care Provider [phone] Reason for Visit * Reason Onset Date Comments RX refill 02/16/2021 Encounter Details Date Type Department Care Team (Late st Contact Info) Description 02/16/2021 Telephone [facility] [address] [place] [phone] Maritza Polo Social History Tobacco Use Types Packs/Day Years [...] Lisinopril 30mg sent into the [facility] on [facility] in [place]. documented in this encounter Plan of Treatment Not on file documented as of this encounter Visit Diagnoses Not on filedocumented in this encounter Care Teams Fulfillment Representative Relationship Specialty Start Date End Date Faye Delgado MD [address] [place] [address] PCP - General Internal Medicine 07/25/21 documented as of this encounter
== END 2025-09-05 13:30 | disposition home or self-care (01) ==
PROVIDERS: PCP Internal Medicine; Visit Provider Nurse Practitioner Family
DX: R63.8 Other symptoms and signs concerning food and fluid intake (principal)

== ENCOUNTER 2025-09-05 13:38 | Emergency (ER) | payer OTHER, SELFPAY ==
[2025-09-05 14:00] VITALS: BP 107/55; PULSE 51; RESP 16; TEMP 36.3; O2SAT 96; BMI 39.4
--- NOTE | 2025-09-05 14:00 | ED.GENADULT ---
HPI - General Adult General Chief complaint: General Medical Stated complaint: low vitals ? from UC Time Seen by Provider: 09/05/25 16:17 Source: patient Mode of arrival: ambulatory Limitations: no limitations History of Present Illness ED Provider: Roger Carvalho HPI narrative: 59 yold female with past medical history of diverticulitis, hypertension, hyperlipidemia presents to the ED for left ear pain and dysuria. Patient states left ear pain since last with decreased hearing and feels like there is fluid in her ear. Patient states she feels a whooshing sound in her left ear. Patient denies any recent trauma or swimming. Patient denies any chest pain, shortness of breath, headache, or dizziness. Patient states pain on urination. Patient denies any abdominal pain, nausea, vomiting, flank pain, fever or chills. Related Data Home Medications ?Medication ?Instructions ?Recorded ?Confirmed lorazepam 0.5 mg tablet 0.5 mg PO TID PRN 10/04/20 04/13/25 zolpidem 5 mg tablet 5 mg PO BEDTIME PRN 10/04/20 04/13/25 trazodone 100 mg tablet 50 mg PO ONCE insomnia 01/10/25 04/13/25 Previous Rx's ?Medication ?Instructions ?Recorded incontinence pad, liner, disp #120 ea 09/02/23 (Poise Pads) barrier cream #1 ea 12/29/23 cleansing wipes #100 ea 12/29/23 incontinence pad, liner, disp #104 ea 12/29/23 Washable bed pad #6 ea 06/11/24 cyanocobalamin (vitamin B-12) 1,000 mcg PO DAILY #90 tabs 12/06/24 1,000 mcg tablet esomeprazole magnesium 40 mg 40 mg PO DAILY #90 caps 02/16/25 capsule,delayed release docusate sodium 100 mg capsule 100 mg PO BEDTIME #30 caps 04/08/25 amlodipine 10 mg tablet 10 mg PO DAILY #90 tabs 04/13/25 ciclopirox 8 % topical solution 1 appl topical BEDTIME 4 weeks 04/13/25 #6.6 mL lisinopril 30 mg tablet 30 mg PO DAILY #90 tabs 04/13/25 sennosides 8.6 mg tablet (senna) 8.6 mg PO BEDTIME #30 tabs 06/02/25 cholecalciferol (vitamin D3) 125 250 mcg (2 x 125 mcg (5,000 unit)) 06/20/25 mcg (5,000 unit) tablet PO DAILY #90 tabs tizanidine 4 mg tablet 4 mg PO Q8H #90 tabs 08/26/25 ropinirole 0.25 mg tablet 0.25 mg PO .QID #360 tabs 08/29/25 amoxicillin 875 mg-potassium 1 tab PO Q12H 10 days #20 tabs 09/05/25 clavulanate 125 mg tablet naproxen 500 mg tablet 500 mg PO BID PRN pain #14 tabs 09/05/25 nitrofurantoin 100 mg PO Q12H 7 days #14 caps 09/05/25 monohydrate/macrocrystals 100 mg capsule (Macrobid) pregabalin 75 mg capsule 75 mg PO TID #270 caps 09/05/25 Allergies Allergy/AdvReac Type Severity Reaction Status Date / Time procaine (From NOVOCAIN) Allergy Severe ANAPHYLAXIS Verified 09/05/25 14:05 methadone (METHADONE) Allergy Intermediate FLUID Verified 09/05/25 14:05 BUILD UP AROUND HEART ciprofloxacin (CIPROFLOXACIN) AdvReac Intermediate REACTION Verified 09/05/25 14:05 WITH MUSCLE RELAXERS clindamycin (CLINDAMYCIN) AdvReac Intermediate PALPITATION Verified 09/05/25 14:05 S Review of Systems Review of Systems: Left ear pain and dysuria Yes all other systems are reviewed and are negative [facility] Past Medical History Medical History (Updated 09/06/25 @ 00:01 by Background Radha) Dehydration symptoms Pre-diabetes Psoriasis Hyperglycemia Annual physical exam GI (gastrointestinal bleed) Diverticulitis Abdominal pain Vitamin B12 deficiency Osteoarthritis of right knee Fibromyalgia Lumbar degenerative disc disease Cervical radiculopathy Depression Vitamin D deficiency HTN (hypertension) Hyperlipidemia Surgical History Hx of colonoscopy H/O Spinal surgery Family History Family History Mother Lupus (systemic lupus erythematosus) Rheumatoid arthritis Uterus cancer Maternal Grandmother Uterus cancer Father HTN (hypertension) Social History Social History Housing: House Alcohol intake: current Alcohol intake frequency: does not drink Patient Tobacco Use Status: Former Tobacco user Smoked in Last 30 Days: No e-Cigarette/Vaping Use: Currently Using Second Hand Smoke Exposure: No Use of substances other than those prescribed or required for medical reasons: No Advance Directives: No Advance Directives Information Provided: No Do you have a plan to hurt others: No Plan Patient : No service: No Current occupational status: disabled Cognitive needs: No Hearing needs: No Vision needs: No Physical Exam ED Vital Signs: Vital Signs - 24 hr 09/05/25 14:00 Temperature 97.4 F Pulse Rate 51 Respiratory Rate 16 Blood Pressure 107/55 L Pulse Oximetry 96 Oxygen Delivery Method Room Air BMI result Body Mass Index 39.4 Const General: cooperative, healthy appearing, comfortable, no acute distress, well developed, alert, awake and Physically active [facility] Head: Yes normal to inspection, Yes No palpable skull fracture present, Yes normocephalic and Yes atraumatic Ears: hearing grossly normal bilaterally, external ears normal, TM normal on the left, EAC's normal, mastoids normal, no periauricular adenopathy and TM abnormal bulging on the right and erythematous on the right Throat: Yes posterior oropharynx normal, Yes tonsils normal and Yes uvula midline Eyes General: appearance normal, both eyes and all related structures Neck Neck: Yes normal visual inspection, Yes full ROM, Yes no lymphadenopathy, Yes no meningeal signs, Yes trachea midline, Yes supple, No anterior neck swelling and No tender Chest Chest palpation & inspection: normal inspection of the chest and normal palpation of entire chest wall Resp Effort & Inspection: normal respiratory effort and able to speak in complete sentences Auscultation: clear to auscultation bilaterally Cardio Jugular venous distension: no JVD Heart sounds: S1 normal heart sound present and S2 normal heart sound present General: Yes no CVA tenderness Back/Spine/Pelvis Back: no CVA tenderness and No back tenderness Skin General skin exam: no rashes or lesions noted, elasticity normal and turgor normal Neuro General: gait normal, tone normal, moves all extremities, Normal light touch and pain sensation, no meningeal signs, no focal motor deficits, CN's II-XI intact bilaterally and normal sensation to monofilament Extrem General: Yes normal to inspection, Yes full ROM and Yes capillary refill normal Psych Appearance: grossly normal, well kempt and not disheveled Course Course Course Narrative: Rapid medical examination performed in triage by Emilie Bello PA-C: Patient is a 59 year old assigned female at presenting to the emergency department with an ear ache and painful urination. Patient states she has been having ear pain and painful urination over several days. Detailed physical exam and review of systems are deferred to the cardio clinician. Labs and swabs ordered. Patient placed back in the waiting room pending room availability and results. Medical Decision Making Medical Decision Making [facility] Narrative: 59-year-old female presents to the ED for left ear pain and dysuria. Physical exam positive for left tympanic membrane bulging with erythema most likely patient has a middle effusion with otitis media. Initial labs are reassuring. Negative for elevated white blood cell count. Negative for signs of dehydration. Glucose normal. Pending UA ROD. 6:01pm: Patient is alert oriented x3. Patient is at baseline moves around with a wheelchair and for small movements cane. Patient's move around the ED in her wheelchair. Patient ambulates her own in the bathroom with cane. UA positive for UTI. Patient is not septic. Not suspecting urosepsis. Knee as cleaned. Liver enzymes normal. Not suspecting hepatic encephalopathy. Not suspecting SC or stroke. Patient is discharged antibiotics informed return to the ED immediately. Not suspecting urosepsis, hepatic encephalopathy, SC, stroke, mastoiditis, brain bleed, or any other life-threatening etiology. Differential Diagnosis Differential Diagnoses: The differential diagnosis associated with the presentation includes (Mastoiditis, tympanic membrane perforation, otitis media, middle ear effusion, UTI, pyelonephritis, kidney stone ) Admission/Observation Consideration of admission/observation: Escalation of care including admission/observation considered Lab Data [facility] Lab Attestation statement: I reviewed the patient's lab results. 09/05/25 14:12 09/05/25 14:12 Labs: Lab Results 09/05/25 09/05/25 Range/Units 14:12 16:55 WBC 7.0 (4.8-10.8) X10*3/uL RBC 4.65 (4.20-5.50) X10*6/uL Hgb 12.8 (12.0-16.0) g/dl Hct 40.3 (37.0-47.0) % MCV 86.7 (80.0-98.0) fL MCH 27.5 (27.0-33.0) pg MCHC 31.8 (31.0-35.0) g/dl RDW 13.9 (11.0-16.0) % Plt Count 314 (160-400) X10*3/uL MPV 11.3 (9.4-12.3) fL Immature Gran % (Auto) 0.1 (0.0-0.4) % Neut % (Auto) 58.2 (45-73) % Lymph % (Auto) 31.3 (20-40) % Slope % (Auto) 5.3 (2-11) % Eos % (Auto) 4.0 (0-4) % Baso % (Auto) 1.1 (0-2) % Lymph # (Auto) 2.2 (1.2-4.9) X10*3/uL Slope # (Auto) 0.4 (0.1-1.2) X10*3/uL Eos # (Auto) 0.3 (0.0-0.4) X10*3/uL Baso # (Auto) 0.1 (0.0-0.2) X10*3/uL Abs Immat Gran (auto) 0.01 (0.00-0.03) X10*3/uL Absolute Neuts (auto) 4.1 (2.0-8.3) x10*3/uL Absolute Nucleated RBC 0.000 (0.0-0.012) X10*3/uL Nucleated RBC % (auto) 0.0 (0.0-0.2) /100WBC Sodium 140 (135-145) mmol/L Potassium 4.2 (3.3-5.1) mmol/L Chloride 108 (96-108) mmol/L Carbon Dioxide 25 (22-29) mmol/L Anion Gap 11 L (12-20) BUN 14 (9-16) mg/dL Creatinine 0.99 (0.5-1.4) mg/dL Estim Creat Clear Calc 70.2 Estimated GFR 58 Random Glucose 108 (60-115) mg/dL Calcium 8.9 (8.4-10.2) mg/dL Magnesium 1.9 (1.6-2.6) mg/dL Total Bilirubin 0.2 (0.0-1.0) mg/dL AST 15 (5-31) U/L ALT 17 (0-31) U/L Alkaline Phosphatase 120 H (39-117) U/L Total Protein 6.8 (6.5-8.0) g/dL Albumin 4.1 (3.5-5.0) g/dL Urine Color RED Urine Appearance Clear Urine pH 5.0 (5.0-9.0) Ur Specific Bussey 1.025 (1.005-1.025) Urine Protein 300 (3+) H (Neg-Trace) mg/dL Urine Glucose (UA) 250 H (Negative) mg/dL Urine Ketones Trace (Negative) mg/dL Urine Blood Negative (Negative) Urine Nitrite Positive H (Negative) Ur Leukocyte Esterase Small (1+) H (Negative) Urine RBC 0-2 (0-2) /HPF Urine WBC 0-5 (0-5) /HPF Ur Squamous Epith Cells 3-5 (0-2) /HPF Urine Bacteria 1+ (None Seen) Hyaline Casts 0-2 (0-2) /LPF Urine Test NEGATIVE (NEGATIVE) Urine Opiates Screen Not Detected (Not Detect) Ur Buprenorphine Scrn Not Detected (Not Detect) ng/mL Ur Oxycodone Screen Not Detected (Not Detect) ng/mL Urine Methadone Screen Not Detected (Not Detect) ng/mL Urine Fentanyl Screen Not Detected (Not Detect) Ur Barbiturates Screen Not Detected (Not Detect) Ur Phencyclidine Scrn Not Detected (Not Detect) Ur Amphetamines Screen Not Detected (Not Detect) U Benzodiazepines Scrn Not Detected (Not Detect) Urine Cocaine Screen Not Detected (Not Detect) U Marijuana (THC) Screen Not Detected (Not Detect) Influenza Type A (PCR) NEGATIVE (Negative) Influenza Type B (PCR) NEGATIVE (Negative) RSV RNA Qual (PCR) NEGATIVE (Negative) SARS-CoV-2 RNA (RT-PCR) NEGATIVE (Negative) Independent Historian Clinical information obtained from an independent historian. History obtained from or confirmed by: Other (patient) Prescription Management I considered prescription management with: Antibiotic Discharge Plan Discharge Clinical Impression: UTI (urinary tract infection), Otitis media Patient Disposition: Home, Self-Care Instructions: Urinary Tract Infection in Women (ED), Ear Infection (ED) Additional Instructions: You having any infection and also or urinary tract infection. You will need antibiotics. Recommend follow up with the primary care provider and ENT specialist. Return to the ED for abdominal pain, nausea, vomiting, flank pain, fever, chills, worsening ear pain, swelling redness behind the ear, loss of hearing, headache, dizziness, ear discharge, or any other concerning symptoms. Prescriptions: New amoxicillin-pot clavulanate 875-125 mg tablet 1 tab PO Q12H 10 Days Qty: 20 0RF nitrofurantoin monohyd/m-cryst [Macrobid] 100 mg capsule 100 mg PO Q12H 7 Days Qty: 14 0RF Rx Instructions: must administer with a meal/food naproxen 500 mg tablet 500 mg PO BID PRN (Reason: pain) Qty: 14 0RF No Action (DME) Poise Pads Pad See Rx Instructions .Route Qty: 120 11RF Rx Instructions: As directed (DME) barrier cream See Rx Instructions .Route .MEDSUPPLY Qty: 1 11RF Rx Instructions: As directed (DME) cleansing wipes See Rx Instructions .Route .MEDSUPPLY Qty: 100 11RF Rx Instructions: As directed (DME) incontinence pad, liner, disp Pad See Rx Instructions .Route Qty: 104 11RF Rx Instructions: As directed-medium absorbancy (DME) Washable bed pad Full size See Rx Instructions .Route .MEDSUPPLY Qty: 6 0RF Rx Instructions: As directed docusate sodium 100 mg capsule 100 mg PO BEDTIME Qty: 30 3RF sennosides [senna] 8.6 mg tablet 8.6 mg PO BEDTIME Qty: 30 0RF cholecalciferol (vitamin D3) 125 mcg (5,000 unit) tablet 250 mcg PO DAILY Qty: 90 1RF tizanidine 4 mg tablet 4 mg PO Q8H Qty: 90 3RF ropinirole 0.25 mg tablet 0.25 mg PO .QID Qty: 360 3RF pregabalin 75 mg capsule 75 mg PO TID Qty: 270 1RF lorazepam 0.5 mg tablet 0.5 mg PO TID PRN zolpidem 5 mg tablet 5 mg PO BEDTIME PRN trazodone 100 mg tablet 50 mg PO ONCE ciclopirox 8 % solution 1 appl topical BEDTIME 28 Days Qty: 6.6 2RF amlodipine 10 mg tablet 10 mg PO DAILY Qty: 90 3RF lisinopril 30 mg tablet 30 mg PO DAILY Qty: 90 3RF esomeprazole magnesium 40 mg capsule,delayed release(DR/EC) 40 mg PO DAILY Qty: 90 3RF cyanocobalamin (vitamin B-12) 1,000 mcg tablet 1,000 mcg PO DAILY Qty: 90 3RF Referrals: [facility] [Provider Group, Ear, Nose, Throat] - 2 days Referral Note: Middle ear effusion my otitis media Clinical Impression: Otitis media Faye Delgado MD [Primary Care Provider, Internal Medicine] - 2 days Referral Note: UTI Clinical Impression: UTI (urinary tract infection) Stand Alone Forms: Work/School Release Interventions: ED Discharge Assessment Last Done: 09/05/25 18:36 Discharge Date/Time: 09/05/25 18:37 Print Language: Montserratian
[2025-09-05 14:17] LABS: MANUAL DIFF FLAG NO
[2025-09-05 14:23] LABS: Hematocrit 40.3 % (37.0-47.0); Hemoglobin 12.8 g/dl (12.0-16.0); Imm Gran Abs Auto 0.01 X10*3/uL (0.00-0.03); Imm Gran Pct Auto 0.1 % (0.0-0.4); Lymphocytes Absolute Auto 2.2 X10*3/uL (1.2-4.9); Mean Corpuscular HGB Conc 31.8 g/dl (31.0-35.0); Mean Corpuscular Hemoglobin 27.5 pg (27.0-33.0); Mean Corpuscular Volume 86.7 fL (80.0-98.0); NRBC Abs Auto 0.000 X10*3/uL (0.0-0.012); NRBC Pct Auto 0.0 /100WBC (0.0-0.2); Platelet Count 314 X10*3/uL (160-400); Red Blood Count 4.65 X10*6/uL (4.20-5.50); White Blood Count 7.0 X10*3/uL (4.8-10.8)
[2025-09-05 14:41] LABS: Alanine Aminotransferase 17 U/L (0-31); Albumin Level 4.1 g/dL (3.5-5.0); Alkaline Phosphatase 120 U/L (39-117); Anion Gap 11 (12-20); Aspartate Amino Transferase 15 U/L (5-31); Blood Urea Nitrogen 14 mg/dL (9-16); Calcium 8.9 mg/dL (8.4-10.2); Carbon Dioxide 25 mmol/L (22-29); Chloride 108 mmol/L (96-108); Creatinine Clr Calc Pharmacy 70.2; Estimated Glomerular Filt Rate 58; Magnesium 1.9 mg/dL (1.6-2.6); Potassium 4.2 mmol/L (3.3-5.1); Sodium 140 mmol/L (135-145); Total Protein 6.8 g/dL (6.5-8.0)
[2025-09-05 14:55] LABS: Resp Syncy Virus RNA Qual PCR NEGATIVE (Negative); SARS COV2 PCR INHOUSE NEGATIVE (Negative)
[2025-09-05 17:17] LABS: Appearance Urine Clear; Glucose Urine UA 250 mg/dL (Negative); PH 5.0 (5.0-9.0); Specific Gravity - Urine 1.025 (1.005-1.025); UMIC TRIGGER UACC YES
[2025-09-05 17:25] LABS: UPreg QC Valid YES
[2025-09-05 17:39] LABS: Cannabinoid Screen Urine Not Detected (Not Detect)
[2025-09-05 17:40] LABS: UACC Culture Trigger YES
[2025-09-05 18:36] VITALS: BP 107/55; PULSE 51; RESP 16; TEMP 36.3; O2SAT 96
== END 2025-09-05 18:37 | disposition home or self-care (01) ==
PROVIDERS: Physician Assistant; Physician Assistant Medical; Emergency Provider Emergency Medicine; PCP Internal Medicine
DX: N39.0 Urinary tract infection, site not specified (principal); H66.92 Otitis media, unspecified, left ear; R30.0 Dysuria; Z03.818 Encounter for observation for suspected exposure to other biological agents ruled out; I10 Essential (primary) hypertension; E78.5 Hyperlipidemia, unspecified; R06.02 Shortness of breath; R53.1 Weakness; R63.8 Other symptoms and signs concerning food and fluid intake; Z79.899 Other long term (current) drug therapy; Z87.891 Personal history of nicotine dependence
CPT/HCPCS: 80053; 80307; 81001; 81003; 81025; 83735; 85025; 87086; 87637; 99212; 99284

== ENCOUNTER 2025-09-28 12:42 | Outpatient (AMB) | payer OTHER, SELFPAY ==
[2025-09-28 12:59] VITALS: BP 112/66; PULSE 59; RESP 18; TEMP 36.9; O2SAT 94; BMI 39.3
--- NOTE | 2025-09-28 12:59 | A.OFFPC_ITS ---
Vital Signs 09/28/25 12:59 Height 5 ft 3 in Weight 222 lb BMI 39.3 BP 112/66 Blood Pressure Location Lt brachial Position Sitting Respiration 18 Pulse 59 Pulse Source Pulse Oximeter Temp 98.4 F Temp Source Oral Pulse Oximetry (%) 94 Oxygen Delivery Method Room Air Intake Visit Reasons: ER follow up Intake Note: Pt is here today for ER follow up visit. Allergies procaine (From NOVOCAIN) Allergy (Severe, Verified 09/28/25 13:21) ANAPHYLAXIS methadone (METHADONE) Allergy (Intermediate, Verified 09/28/25 13:21) FLUID BUILD UP AROUND HEART ciprofloxacin (CIPROFLOXACIN) Adverse Reaction (Intermediate, Verified 09/28/25 13:21) REACTION WITH MUSCLE RELAXERS clindamycin (CLINDAMYCIN) Adverse Reaction (Intermediate, Verified 09/28/25 13:21) PALPITATIONS Medication List - Last Reconciled 09/28/25 by Faye Delgado MD amlodipine 10 mg PO DAILY [barrier cream As directed] cholecalciferol (vitamin D3) 250 mcg (2 x 125 mcg (5,000 unit)) PO DAILY ciclopirox 8% 1 appl topical BEDTIME 4 weeks [cleansing wipes As directed] cyanocobalamin (vitamin B-12) 1,000 mcg PO DAILY docusate sodium 100 mg PO BEDTIME esomeprazole magnesium 40 mg PO DAILY incontinence pad, liner, disp (Poise Pads) As directed incontinence pad, liner, disp As directed-medium absorbancy lisinopril 30 mg PO DAILY lorazepam 0.5 mg PO TID PRN naproxen 500 mg PO BID PRN pregabalin 75 mg PO TID ropinirole 0.25 mg PO .QID sennosides (senna) 8.6 mg PO BEDTIME tizanidine 4 mg PO Q8H trazodone 50 mg PO ONCE [Washable bed pad As directed] zolpidem 5 mg PO BEDTIME PRN Tobacco use date assessed: 09/28/25 Dental Screening Dental Screen Date: 04/13/25 HPI ER follow up HPI Details Patient presents for the follow-up of ER visit for left ear otitis and UTI on August. Patient complained treatment with Augmentin and Macrobid and reports feeling better. She still feels fluid in her left ear but denies any pain or discharge. Patient denies nausea vomiting fever chills abdominal pelvic pain. Hypertension is controlled on current medications. Patient has been trying to lose weight but decreasing caloric intake and increasing physical activity but she is wheelchair-bound and very limited for over 6 months. Zepbound prescription was sent but insurance denied the coverage twice. [facility] Medical History (Updated 09/28/25 @ 14:03 by Faye Delgado MD) Dehydration symptoms Pre-diabetes Psoriasis Hyperglycemia Annual physical exam GI (gastrointestinal bleed) Diverticulitis Abdominal pain Vitamin B12 deficiency Osteoarthritis of right knee Fibromyalgia Lumbar degenerative disc disease Cervical radiculopathy Depression Vitamin D deficiency HTN (hypertension) Hyperlipidemia Surgical History Hx of colonoscopy H/O Spinal surgery Family History Mother Lupus (systemic lupus erythematosus) Rheumatoid arthritis Uterus cancer Maternal Grandmother Uterus cancer Father HTN (hypertension) Social History Housing: House Alcohol intake: current Alcohol intake frequency: does not drink Patient Tobacco Use Status: Former Tobacco user e-Cigarette/Vaping Use: Currently Using Second Hand Smoke Exposure: No service: No Current occupational status: disabled Cognitive needs: No Hearing needs: No Vision needs: No Questionnaire PHQ-9 Over the last 2 weeks, how often have you been bothered by any of the following problems? 1. Little interest or pleasure in doing things: nearly every day 2. Feeling down, depressed, or hopeless: more than half the days 3. Trouble falling or staying asleep, or sleeping too much: nearly every day 4. Feeling tired or having little energy: nearly every day 5. Poor appetite or overeating: several days 6. Feeling bad about yourself - or that you are a failure or have let yourself or your family down: nearly every day 7. Trouble concentrating on things, such as reading the newspaper or watching television: nearly every day 8. Moving or speaking so slowly that other people could have noticed. Or the opposite - being so fidgety or restless that you have been moving around a lot more than usual: several days 9. Thoughts that you would be better off or of hurting yourself in some way: nearly every day Total score: 22 Depression Screening Interpretation: Positive (Patient is established with a psychiatrist and therapist ) Depression Screening Follow-up: Existing condition and In treatment Depression Screening Done: Yes Source: Developed by Drs. Miles Torres, Robert Nath and colleagues, with an educational brittney from [employer]. Thrive Questionnaire Date Thrive assessed: 04/13/25 HENRRY-7 AMB Questionnaire HENRRY-7 Date HENRRY - 7 assessed: 04/13/25 Source: Developed by Drs. Miles Torres, Ramonita Wilkinson, Robert Stevens and colleagues, with an educational brittney from [employer]. Review of Systems Const All systems reviewed & are unremarkable except as noted in HPI and below Eyes Reports no additional complaints ENT Reports no additional complaints Card Reports no additional complaints Resp Reports no additional complaints GI Reports no additional complaints Reports no additional complaints Physical exam (Primary Care) Vital Signs: Last Vital Signs Temp 98.4 F 09/28/25 12:59 Pulse 59 09/28/25 12:59 Resp 18 09/28/25 12:59 BP 112/66 09/28/25 12:59 Pulse Ox 94 09/28/25 12:59 Oxygen Delivery Method Room Air 09/28/25 12:59 BMI result Body Mass Index 39.3 Tobacco/Smoking Status: Tobacco use Status Tobacco use date assessed 09/28/25 09/28/25 13:21 Patient Tobacco Use Status Former Tobacco user 09/28/25 13:01 e-Cigarette/Vaping Use Currently Using 09/28/25 13:01 PHQ-9: PHQ-9 Score PHQ-9: Total score 22 09/28/25 13:21 Depression Screening Interpretation: Positive (Patient is established with a psychiatrist and therapist ) Depression Screening Follow-up: Existing condition and In treatment Thrive Assessment: Date of Thrive Assessment Date Thrive assessed 04/13/25 09/28/25 13:01 Const General: no acute distress HENMT Ears: TM's normal bilaterally Face and sinus: Yes normal facial exam Mouth: Normal oral and palatal mucosa present Resp Effort & Inspection: normal respiratory effort Auscultation: clear to auscultation bilaterally Cardio Rhythm: regular rhythm Heart sounds: S1 normal heart sound present and S2 normal heart sound present GI Inspection: Yes normal to inspection Palpation (GI): Soft to palpation Percussion: Yes normal to percussion Auscultation: normal bowel sounds General: Yes no CVA tenderness Back/Spine/Pelvis Back: no CVA tenderness Coding Level of Care Code Est Pt Level 4 (60166) Diagnoses BMI 39.0-39.9,adult Z68.39 HTN (hypertension) I10 Hyperlipidemia E78.5 Assessment & Plan Assessment & Plan (1) BMI 39.0-39.9,adult: Code(s): Z68.39 - Body mass index [BMI] 39.0-39.9, adult Category: Medical Plan: Patient has been decreasing caloric intake trying to lose weight for over 6 months unsuccessfully. Her insurance declined coverage for GLP 1 agonist. Patient will be referred to weight management for further treatment (2) HTN (hypertension): Code(s): I10 - Essential (primary) hypertension Category: Medical Plan: Continue current medications (3) Hyperlipidemia: Comment: Diet controlled , patient refused treatment Code(s): E78.5 - Hyperlipidemia, unspecified Category: Medical Plan: Continue low-cholesterol diet Orders: Referrals Medical Weight Management Referral Z68.39 - Body mass index [BMI] 39.0-39.9, adult
--- OUTSIDE RECORDS SUMMARY | 2025-09-28 14:57 | XMS_ITS | Data Portability ---
Author Organization [facility] [facility] Address [address] [place] [phone] Care Team Providers Care Chaplain Resident Name Role Phone HIM CCA OTHER Assessment Encounter Date Assessment Date Assessment LastModified by Organization Details LastModified Time 11/23/2024 11/23/2024 I have reviewed and agree with the assessment and plan as documented by the medical secretary receptionist. I provided real time medical direction for this encounter and was immediately available to provide additional phone based assistance as needed. History as noted by medical secretary receptionist. Pt reports non productive cough x 3-4 [...] appears to be a viral URI with MILLWRIGHT cough. No other concerning symptoms, pt appears [...] respiratory specimen 2024 025 btils Main - [facility], [address] [place] [address], [phone] 09:47:52 rapid flu (A+B) 2024 025 btils Main - [facility], [address] [place] [address], [phone] 09:47:52 Referral None recorded. Procedures None recorded. Surgeries None recorded. Imaging None recorded. Medication Orders None recorded. Patient TargetsNo targets recorded. Patient InstructionsNo instructions recorded. Reason for Referral None Reported. Results Created Date Observation Date Name Description Value Unit Range Abnormal Flag Note LastModifiedBy Organization Detail LastModifiedTime 11/23/1911/23/2024 rapid flu (A+B) Flu negati ve Not Available [facility] ed [address] [place] [address], [phone] 11/23/2024 09:47:32 11/23/1911/23/2024 rapid SARS CoV 2 Ag, QL IA, respi rator y speci men rapid SARS CoV 2 Ag, QL IA, respiratory specimen negati ve Not Available [address], [phone] 11/23/2024 09:47:29 Result Notes None recorded. Medical Equipment None Reported. Allergies Allergen ID Allergen Name Allergen Category Reaction Reaction Severity Criticality Documentation Date Start Date Code Code System Note Provider Name and Address Organization Details Recorded Time 76226 Cipro medicatio n Not available Not available Not available 11/22/2024 20388 3 RxNorm Not Available [facility] - production 5 20:00:02 18803 methadone medicatio n Not available Not available [...] temperature Respiratory rate Heart rate Oxygen saturation Systolic And Diastolic Provider Name and Address Organization Details Last Updated DateTime 5 99 [degF] 16 /min 63 /min 96 % 118/72 mm[Hg] Not Available [employer] - production 5 09:39:09 Social History None [...] ICD10 Code Diagnosis IMO Codes Diagnosis Note [id number] Miguel Narvaez MD Main - [facility] [address] [place] [phone] 11/23/2024 09:39:07 11/23/2024 11:07:26 Acute bronchitis [id number] J20.9 Health Concerns Section Related Observation LastModified by Organization Detai ls LastModified Time None Recorded Concern Status LastModified by Organization Details LastModified Time None Recorded Advance Directives Directive None Recorded Payers Insurance Date Sequence Insurance Name Policy Number Policy Alvarez Covered Member ID Alvarez Member ID Guarantor Name 11/22/2024 1 [facility] - DOS ON OR AFTER 2023 - DUAL ELIGIBLE - CUSTODIAL OPTIONS AND ONE CARE (MEDICARE REPLACEMENT/AD VANTAGE - HMO) Marilynn Pena [id number] Marilynn Pena Notes Date Note Type Note Provider Name and Address Organization Details Recorded Time 11/23/2024 text/html ROS as noted in the HPI This was a supervised home visit with medical secretary receptionist Jv Mayorga. 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 A ddress: [address] [place], [place] [address] [address], USMedical Director: Isrrael Suarez [facility] No.: [id number] Puppet Engineer POC Test Results from Jv Mayorga - ALS Rapid influenza antigen (09:33:50)Flu: - Rapid COVID antigen (09:33:54)COVID: - ..................... ..................... ..................... ..................... ..................... ..................... ............... Puppet Engineer Note From Jv Mayorga: Dispatch to the call address for the female with a cough. Patient states Friday night she started not feeling well complaining of generalized weakness, tired as well as nonproductive cough. She denies chest pain, difficulty breathing, shortness of breath, fevers, N/V/D. Patient states she has been taking mzrz-ktz-hrmsupj medication s with good effect. She advises [...] ..................... ..................... ..................... ..................... ..................... ..................... ............... [facility] Consulted: Miguel Narvaez ..................... ..................... ..................... ..................... ..................... ..................... ............... Disposition: Fulfilled Miguel Narvaez MD [address] [facility],[address] [facility], [place], [address], [employer] 11/23/2024 09:54:28 OBGyn Episode No OBEpisode recorded.
== END 2025-09-28 14:05 | disposition home or self-care (01) ==
LOC: HO.HMCC 12:43
PROVIDERS: PCP Internal Medicine; Visit Provider Internal Medicine
DX: Z68.39 Body mass index [BMI] 39.0-39.9, adult (principal); I10 Essential (primary) hypertension; E78.5 Hyperlipidemia, unspecified

== ENCOUNTER → 2025-09-28 12:42 | Outpatient (BNVA) | payer OTHER, SELFPAY | PROVIDERS: PCP Internal Medicine; Visit Provider Internal Medicine | DX: I10 Essential (primary) hypertension (principal); E78.5 Hyperlipidemia, unspecified | CPT/HCPCS: 96127; 99212 ==